=== PATIENT | female | born 1960 | race Caucasian/White ===

== ENCOUNTER 2020-09-14 15:00 | Outpatient (REF) | payer MEDICAID, SELFPAY ==
--- NOTE | 2020-09-14 | MM_ITS ---
EXAMINATION: MM SCREENING DIGITAL BREAST TOMOSYNTHESIS, BILATERAL CLINICAL INFORMATION: Screening. Asymptomatic. The lifetime risk of breast cancer based on the Tyrer-Cuzick Model is 11%. COMPARISON: Mammography: 06/22/2019, 06/18/2018, 06/05/2017 TECHNIQUE: Digital breast tomosynthesis is performed in both the craniocaudal and mediolateral oblique views along with computer-aided detection (CAD). Synthesized 2D images are generated from the tomosynthesis. FINDINGS: There are scattered areas of fibroglandular density (ACR BI-RADS breast composition Category b). There are no significant masses, abnormal calcifications, or other abnormalities. Parenchymal pattern is similar to prior exams. No significant changes. Again, there is biopsy clip marker mid 9:00 left breast. Intramammary nodes again seen upper outer right breast. MM/MM tomosynthesis screening BI IMPRESSION: No mammographic evidence of malignancy. ASSESSMENT: BI-RADS 2: Benign RECOMMENDATION: Routine annual mammography screening. This patient's information was entered into a reminder system with a target due date for their next mammogram.
== END 2020-09-14 15:01 | disposition home or self-care (01) ==
LOC: HO.MAMMO 15:00
PROVIDERS: PCP Nurse Practitioner Family; Visit Provider Nurse Practitioner Family
DX: Z12.31 Encounter for screening mammogram for malignant neoplasm of breast (principal)
CPT/HCPCS: 77063; 77067

== ENCOUNTER → 2021-08-15 12:46 | Outpatient (BNVA) | payer MEDICAID, SELFPAY | PROVIDERS: PCP Nurse Practitioner Primary Care; Referring Provider Nurse Practitioner Primary Care; Visit Provider Nurse Practitioner Family ==

== ENCOUNTER → 2021-09-26 14:23 | Outpatient (BNVA) | payer MEDICAID, SELFPAY | PROVIDERS: PCP Nurse Practitioner Primary Care; Referring Provider Nurse Practitioner Primary Care; Visit Provider Nurse Practitioner Family | DX: K21.9 Gastro-esophageal reflux disease without esophagitis (principal); Z86.19 Personal history of other infectious and parasitic diseases | CPT/HCPCS: 99212 ==

== ENCOUNTER 2021-10-13 09:42 | Outpatient (REF) | payer MEDICAID, SELFPAY ==
[2021-10-15 10:06] LABS: H Pylori Breath Test Positive (Negative)
== END 2021-10-13 09:43 | disposition home or self-care (01) ==
LOC: HO.LNP 09:42
PROVIDERS: PCP Nurse Practitioner Primary Care; Referring Provider Nurse Practitioner Primary Care; Visit Provider Nurse Practitioner Family
DX: Z11.0 Encounter for screening for intestinal infectious diseases (principal)
CPT/HCPCS: 83013; 99211

== ENCOUNTER → 2021-11-29 09:41 | Outpatient (BNVA) | payer MEDICAID, SELFPAY | PROVIDERS: PCP Nurse Practitioner Primary Care; Visit Provider Nurse Practitioner Family | DX: K21.9 Gastro-esophageal reflux disease without esophagitis (principal); E78.5 Hyperlipidemia, unspecified; R73.03 Prediabetes; E66.9 Obesity, unspecified; Z68.29 Body mass index [BMI] 29.0-29.9, adult; Z86.19 Personal history of other infectious and parasitic diseases | CPT/HCPCS: 99212 ==

== ENCOUNTER 2021-12-04 12:28 | Day surgery (SDC) | payer MEDICAID, SELFPAY ==
--- NOTE | 2021-12-04 12:56 | P.CONAN_ITS ---
[facility] Active Problems Active Problems: All Active Problems (Updated 09/26/21 @ 15:[address] [facility]) Gastroesophageal reflux disease (Acute) Past Medical History Medical History Asthma Dyslipidemia Gastroesophageal reflux disease Obesity Prediabetes Rhinitis Family History Family History (Updated 11/29/21 @ 09:52 by MINNA Cline) Mother Cancer Family history of problems with anesthesia: No Surgical History History of Problems with Anesthesia: No Social History Social History Patient Tobacco Use Status: Never used Tobacco Use of substances other than those prescribed or required for medical reasons: No Advance Directives: No Advance Directives Information Provided: Yes Meds Allergies Allergy/AdvReac Type Severity Reaction Status Date / Time No Known Allergies Allergy Verified 11/29/21 09:51 Home Medications Medication Instructions Recorded Confirmed Last Taken Type albuterol sulfate 90 mcg/actuation 2 puff PO QID 08/15/21 Unknown History aerosol inhaler (ProAir HFA) atorvastatin 20 mg tablet 20 mg PO QPM 08/15/21 Unknown History ibuprofen 600 mg tablet 600 mg PO TID PRN 08/15/21 Unknown History metformin 500 mg tablet 500 mg PO DAILY 08/15/21 Unknown History polyvinyl alcohol 1.4 % eye drops 1 drp OPHTHALMIC (EYE) TID-QID 08/15/21 Unknown History (Artificial Tears (polyvinyl alcohol)) Exam Exam Date and Time: December 04, 2021 1256 Airway Mallampati Class: II TM Dist: >3cm Neck ROM: Full Heart: rrr Lungs: cta Assessment and Plan Assessment Anesthesia Assessment: Anesthesia Plan Discussed and Chart Reviewed Final Anesthetic Review Family History of Problems with Anesthesia: No History of Problems with Anesthesia: No NPO: Yes ASA Class: II Final Preanesthetic Review: No Changes in Pt Med Stat, Meds/Allgs Chart Reviewed and Consent Obtained/Reviewed Patient Risk: Intermediate Procedure Risk: Intermediate Anesthetic Plan Anesthetic Plan: MAC: Disposition: Standard PACU
[2021-12-04 13:02] VITALS: BP 130/79; PULSE 89; RESP 16; TEMP 36.4; O2SAT 97; BMI 29.9
[2021-12-04] MEDS: Lactated Ringers 1,000 ML 50 ML IVCONT (13:12)
--- NOTE | 2021-12-04 14:04 | MHC.SHP ---
Pre-Procedural Eval Section A Date of Service: 12/04/21 The patient is an INPATIENT: No Changes since office visit: Yes Patient answered all questions; No Cold of Flu in the past 2 weeks, No New Medical Problems and No Changes in Medication The History & Physical has been completed within 30 days and I have reviewed it.: Yes Section B Chief Complaint: GERD Allergies: Allergies Allergy/AdvReac Type Severity Reaction Status Date / Time No Known Allergies Allergy Verified 11/29/21 09:51 Plan I have reviewed the history and physical and performed a pertinent physical examination on my patient. No changes have occurred unless specified.
--- NOTE | 2021-12-04 14:32 | P.BOP_ITS ---
Brief Operative Note Date of Service: 12/04/21 Pre-op diagnosis: GERD, recurrent H Pylori infectiuon Post-op diagnosis: other (GERD, gastritis) Procedure: FLEXIBLE TRANSORAL UPPER GASTROINTESTINAL ENDOSCOPY WITH BIOPSIES Consent: Indications for the procedure and potential complications of bleeding, perforation, reaction to medications and missed diagnosis were discussed with the patient and informed consent was obtained. Instrument: Olympus GIF H 190 mid size upper endoscope Monitoring: Vital signs and clinical assessment, continuous EKG monitoring, Pulse oximetry, Carbon Dioxide monitoring and blood pressure monitoring were done throughout the procedure. Procedure: The patient was placed in the left lateral decubitis position and pre-procedure medications were administered and a bite block was placed. The endoscope was inserted into the mouth and advanced under direct vision to the third part of duodenum. A careful inspection was made as the upper endoscope was withdrawn including a retroflexed examination of the proximal stomach; Findings and interventions are described below. Findings: Larynx: Normal Esophagus: GE junction at 35 cms. No esophagitis or May's. Stomach: Moderate diffuse gastric erythema with nodular appearing gastric mucosa. Biopsies were obtained for histology and Helicobacter culture and sensitivity. Grade 2 flap valve on retroflexed examination of the cardia. Duodenum: Normal bulb and descending duodenum Intervention: Biopsies as noted above Impression and Post Procedure Diagnosis: Endoscopy Findings: STOMACH: Moderate diffuse gastric erythema with nodular appearing gastric mucosa. Biopsies were obtained for histology and Helicobacter culture and sensitivity. Plan: Await pathology results Patient has an appointment on 12/29/21 in the GI Clinic with Georgie Chaudhari FNP-BC . Above findings were reviewed with the patient and GERD and Gastritis handouts were given in the discharge area Surgeon: Georgie Walsh MD Anesthesia: MAC (Dr Amos) Was an Entry Level Lab Technician used for this Procedure?: No Entry Level Lab Technician: Patsy Cardenas Estimated blood loss (mL): 0 Pathology: other (A. gastric antrum bxs, R/O H. pylori B. gastric body bxs) Condition: stable Disposition: PACU
--- NOTE | 2021-12-04 14:34 | P.OP_ITS ---
Operative Note Operative Note Date of Service: 12/04/21 Narrative: Pre-op diagnosis: GERD, recurrent H Pylori infectiuon Post-op diagnosis:?other (GERD, gastritis) Procedure: FLEXIBLE TRANSORAL UPPER GASTROINTESTINAL ENDOSCOPY WITH BIOPSIES Consent:?Indications for the procedure and potential complications of bleeding, perforation, reaction to medications and missed diagnosis were discussed with the patient and informed consent was obtained. Instrument:?Olympus GIF H 190 mid size upper endoscope Monitoring: Vital signs and clinical assessment, continuous EKG monitoring, Pulse oximetry, Carbon Dioxide monitoring and blood pressure monitoring were done throughout the procedure. Procedure:?The patient was placed in the left lateral decubitis position and pre-procedure medications were administered and a bite block was placed. The endoscope was inserted into the mouth and advanced under direct vision to the third part of duodenum. A careful inspection was made as the upper endoscope was withdrawn including a retroflexed examination of the proximal stomach; Findings and interventions are described below. Findings: Larynx:? Normal Esophagus: GE junction at 35 cms. No esophagitis or May's. Stomach: Moderate diffuse gastric erythema with nodular appearing gastric mucosa. Biopsies were obtained for histology and Helicobacter culture and sensitivity. Grade 2 flap valve on retroflexed examination of the cardia. Duodenum: Normal bulb and descending duodenum Intervention: Biopsies as noted above Impression and Post Procedure Diagnosis: Endoscopy Findings: STOMACH: Moderate diffuse gastric erythema with nodular appearing gastric mucosa. Biopsies were obtained for histology and Helicobacter culture and sensitivity. Plan: Await pathology results and if H Pylori is positive, patient can be re-treated according to culture and sensitivity results. Patient has an appointment on 12/29/21 in the GI Clinic with Georgie Chaudhari FNP- BC . Above findings were reviewed with the patient and GERD and Gastritis handouts were given in the discharge area Surgeon: Georgie Walsh MD Anesthesia:?MAC (Dr Amos) Was an Pattern Grader Supervisor used for this Procedure?:?No Pattern Grader Supervisor:?Patsy Cardenas Estimated blood loss (mL):?0 Pathology:?other (A. gastric antrum bxs, R/O H. pylori? B. gastric body bxs) Condition:?stable Disposition:?PACU
[2021-12-04 14:52] VITALS: BP 109/61; PULSE 90; RESP 16; TEMP 36.6; O2SAT 97
[2021-12-04 15:07] VITALS: BP 122/73; PULSE 86; RESP 18; TEMP 36.2; O2SAT 96
== END 2021-12-04 16:06 | disposition home or self-care (01) ==
PROVIDERS: PCP Nurse Practitioner Primary Care; Visit Provider Internal Medicine Gastroenterology
PROC: 0DJ08ZZ Inspection of Upper Intestinal Tract, Via Natural or Artificial Opening Endoscopic (ICD-10-PCS; CPT 43235; principal; 2021-12-04 13:50)
DX: K21.9 Gastro-esophageal reflux disease without esophagitis (principal); K29.50 Unspecified chronic gastritis without bleeding; Z86.19 Personal history of other infectious and parasitic diseases; J45.909 Unspecified asthma, uncomplicated; E78.5 Hyperlipidemia, unspecified; R73.03 Prediabetes; E66.9 Obesity, unspecified; Z68.29 Body mass index [BMI] 29.0-29.9, adult; Z79.84 Long term (current) use of oral hypoglycemic drugs; Z79.899 Other long term (current) drug therapy
CPT/HCPCS: 43239; 36415; 87081; 88305; 88342

== ENCOUNTER → 2021-12-29 10:17 | Outpatient (BNVA) | payer MEDICAID, SELFPAY | PROVIDERS: PCP Nurse Practitioner Primary Care; Referring Provider Nurse Practitioner Primary Care; Visit Provider Nurse Practitioner Family | DX: K21.9 Gastro-esophageal reflux disease without esophagitis (principal); Z86.19 Personal history of other infectious and parasitic diseases | CPT/HCPCS: 99212 ==

== ENCOUNTER → 2022-07-02 09:32 | Outpatient (BNVA) | payer MEDICAID, SELFPAY | PROVIDERS: PCP Nurse Practitioner Primary Care; Referring Provider Nurse Practitioner Primary Care; Visit Provider Nurse Practitioner Family | DX: K21.9 Gastro-esophageal reflux disease without esophagitis (principal); Z86.19 Personal history of other infectious and parasitic diseases | CPT/HCPCS: 99212 ==

== ENCOUNTER 2022-07-05 11:17 | Outpatient (REF) | payer MEDICAID, SELFPAY | END 2022-07-05 11:18 | disposition home or self-care (01) | LOC: HO.LNP 11:17 | PROVIDERS: Visit Provider Nurse Practitioner Family | DX: K21.9 Gastro-esophageal reflux disease without esophagitis (principal) | CPT/HCPCS: 87338 ==

== ENCOUNTER 2022-07-18 15:00 | Outpatient (REF) | payer MEDICAID, SELFPAY ==
--- NOTE | ~2022-07-18 | MM_ITS ---
EXAMINATION: MM SCREENING DIGITAL BREAST TOMOSYNTHESIS, BILATERAL CLINICAL INFORMATION: Screening. Asymptomatic. The lifetime risk of breast cancer based on the Tyrer-Cuzick Model is 7.6%. COMPARISON: Mammography: September 14, 2020 and studies dating back to May 24, 2014 TECHNIQUE: Digital breast tomosynthesis is performed in both the craniocaudal and mediolateral oblique views along with computer-aided detection (CAD). Synthesized 2D images are generated from the tomosynthesis. FINDINGS: The breasts are heterogeneously dense, which may obscure small masses (ACR BI-RADS breast composition Category c). There are no significant masses, abnormal calcifications, or other abnormalities. MM/MM tomosynthesis screening BI IMPRESSION: No significant changes from prior exam. ASSESSMENT: BI-RADS 1: Negative RECOMMENDATION: Routine annual mammography screening. This patient's information was entered into a reminder system with a target due date for their next mammogram.
== END 2022-07-18 15:01 | disposition home or self-care (01) ==
LOC: HO.MAMMO 15:00
PROVIDERS: PCP Nurse Practitioner Primary Care; Visit Provider Nurse Practitioner Primary Care
DX: Z12.31 Encounter for screening mammogram for malignant neoplasm of breast (principal)
CPT/HCPCS: 77063; 77067

== ENCOUNTER → 2022-10-08 09:28 | Outpatient (BNVA) | payer MEDICAID, SELFPAY | PROVIDERS: PCP Nurse Practitioner Primary Care; Referring Provider Nurse Practitioner Primary Care; Visit Provider Nurse Practitioner Family | DX: K21.9 Gastro-esophageal reflux disease without esophagitis (principal) | CPT/HCPCS: 99212 ==

== ENCOUNTER 2023-03-06 09:51 | Outpatient (REF) | payer MEDICAID, SELFPAY ==
--- NOTE | ~2023-03-06 | CT_ITS ---
EXAMINATION: CT HEAD WITHOUT CONTRAST CLINICAL INFORMATION: New daily headaches. COMPARISON: None. TECHNIQUE: Contiguous axial imaging was performed from the skullbase to vertex without intravenous administration of contrast. This CT examination was performed using dose optimization techniques as appropriate, variously including the following: *Automated exposure control *Adjustment of mA and/or kV according to patient size (this includes techniques or standardized protocols for targeted exams where dose is matched to indication/reason for exam; i.e. extremities or head) *Use of iterative reconstruction technique DLP: 718 mGy-cm. FINDINGS: There is no evidence of acute intracranial hemorrhage or territorial infarction. No abnormal mass effect or midline shift is seen. Souza to white matter differentiation is well preserved. No extra-axial fluid collections are identified. Incidental empty sella noted. The ventricles are normal in size. There is no abnormal attenuation within the brain parenchyma. The osseous structures and soft tissues are normal. The mastoid air cells and visualized portions of the paranasal sinuses are well aerated. CT/CT head/brain wo IV con IMPRESSION: No acute intracranial pathology.
== END 2023-03-06 09:52 | disposition home or self-care (01) ==
LOC: HO.CT 09:51
PROVIDERS: PCP Nurse Practitioner Primary Care; Visit Provider Internal Medicine
DX: G44.52 New daily persistent headache (NDPH) (principal)
CPT/HCPCS: 70450

== ENCOUNTER 2023-04-08 09:43 | Outpatient (AMB) | payer MEDICAID, SELFPAY ==
--- NOTE | 2023-04-08 10:44 | MHC.OFFVIS ---
Intake Vital Signs 04/08/23 10:46 Height 5 ft 2 in Weight 151 lb 3.794 oz BMI 27.7 BP 125/74 Blood Pressure Location Lt brachial Position Sitting Pulse 86 Intake Visit Reasons: 6 month follow up Intake Note: Cesia presents in office as a est.patient for a 6month f/u for GERD PT CC: pt reports having no concerns pt denies any other Issues Inspector Publications Required: Yes Inspector Publications Language: Chadian Accompanied by: Self / Same As Patient Allergies No Known Allergies Allergy (Verified 04/08/23 10:44) HPI 6 month follow up HPI Details LAST VISIT: Gastroesophageal reflux disease Continue with omeprazole half an hour before breakfast and half an hour before dinner. Continue avoiding dietary triggers and late night snacking. Staying upright for minimal 3 hours after meals discussed with patient. Patient can return in 6 months, sooner on as needed basis. Patient is agreeable to this plan and verbalizes understanding of instructions she was given the opportunity to ask questions and all questions answered. ? Thank you for allowing me to participate in her care Plan Medications Refilled omeprazole 40 mg PO BID 180 caps 1RF K21.9 Discontinued ondansetron Discontinued Reason: Patient no longer taking 4 mg PO Q8H PRN 20 tabs 0RF nausea and vomiting R11.0 TODAY'S VISIT: Patient is here today for follow-up. Patient reports that since the last time I have seen her she has been feeling better. Patient was taking omeprazole once a day instead of twice a day. Avoiding dietary triggers and states that she has not had any epigastric pain, dyspepsia, dysphagia or odynophagia. Admits to occasional heartburn depending on the food that she eats. Patient do not longer has epigastric discomfort night time. Patient stopped eating late at night. Patient denies any GI concerning symptoms today. States that she has been feeling well. Patient denies melena, hematochezia, unintentional weight loss or ribbon like stools. Patient is due to go for colorectal screening in January of 2024 [facility] Medical History Asthma Dyslipidemia Gastroesophageal reflux disease Obesity Prediabetes Rhinitis Surgical History Hx of esophagogastroduodenoscopy Family History Mother Cancer Social History Patient Tobacco Use Status: Never used Tobacco Review of Systems Const Denies weight gain and Denies weight loss ENT Reports no additional complaints, Denies dysphagia and Denies odynophagia Card Reports no additional complaints Resp Reports no additional complaints GI Denies abdominal pain, Denies belching, Denies melena, Denies bloating, Denies change in bowel habits, Denies dysphagia, Denies excessive flatus, Denies dyspepsia, Reports heartburn (Occasional), Denies diarrhea, Denies loose stools, Denies nausea, Denies odynophagia and Denies vomiting Reports no additional complaints Musc Reports no additional complaints Neuro Reports no additional complaints Psych Reports no additional complaints Endo Reports no additional complaints Physical Exam Vital Signs: Last Vital Signs Pulse 86 04/08/23 10:46 BP 125/74 04/08/23 10:46 BMI result Body Mass Index 27.7 Const General: healthy appearing, no acute distress and well developed Nutritional Appearance: well nourished Orientation/consciousness: patient oriented x3 HEENT Head: Yes normal to inspection, Yes normocephalic and Yes atraumatic Face and sinus: Yes normal facial exam Mouth: Normal oral and palatal mucosa present Throat: Yes posterior oropharynx normal, Yes tonsils normal and Yes uvula midline Eyes General: appearance normal, both eyes and all related structures Neck Neck: Yes normal visual inspection, Yes full ROM and Yes trachea midline Thyroid: Thyroid normal Resp Effort & Inspection: normal respiratory effort, able to speak in complete sentences, no tracheal deviation and symmetric chest movement Auscultation: clear to auscultation bilaterally Cardio Rate: regular rate Heart sounds: S1 normal heart sound present and S2 normal heart sound present GI Inspection: Yes normal to inspection and No distended Palpation (GI): Soft to palpation, not firm, nontender and No hepatosplenomegaly present Auscultation: normal bowel sounds General: Yes no CVA tenderness Back/Spine/Pelvis Back: no CVA tenderness Skin General skin exam: elasticity normal, turgor normal and dry skin Neuro General: patient oriented x3 Psych Appearance: grossly normal Mental Status: mental status grossly normal Speech and movement: Normal speech and movement present Affect: normal affect Assessment & Plan Assessment & Plan (1) Gastroesophageal reflux disease: Code(s): K21.9 - Gastro-esophageal reflux disease without esophagitis Qualifiers: Esophagitis presence: without esophagitis Qualified Code(s): K21.9 - Gastro-esophageal reflux disease without esophagitis Plan: Continue avoiding dietary triggers and late night snacking. Staying upright for minimum 3 hours after meals discussed patient. Continue omeprazole daily. I will see patient in 6 months we will discuss going for colonoscopy. Do in January of 2024. Patient is agreeable to this plan and verbalizes understanding of instructions. She was given the opportunity to ask questions and all questions answered. Thank you for allowing me to participate in her care Medications: Changed From omeprazole 40 mg PO BID 180 caps 1RF K21.9 - Gastro-esophageal reflux disease without esophagitis To omeprazole 40 mg PO DAILY 90 caps 1RF K21.9 - Gastro-esophageal reflux disease without esophagitis Coding Level of Care Code Est Pt Level 3 (51623) Diagnoses Gastroesophageal reflux disease K21.9 Esophagitis presence: without esophagitis Time Spent (min) 30 Comment 20 minutes spent with patient and additional 10 minutes spent reviewing her records
[2023-04-08 10:46] VITALS: BP 125/74; PULSE 86; BMI 27.7
== END 2023-04-08 11:53 | disposition home or self-care (01) ==
PROVIDERS: PCP Nurse Practitioner Primary Care; Visit Provider Nurse Practitioner Family
DX: K21.9 Gastro-esophageal reflux disease without esophagitis (principal)
CPT/HCPCS: 99213

== ENCOUNTER → 2023-04-08 10:11 | Outpatient (BNVA) | payer MEDICAID, SELFPAY | PROVIDERS: PCP Nurse Practitioner Primary Care; Visit Provider Nurse Practitioner Family | DX: K21.9 Gastro-esophageal reflux disease without esophagitis (principal) | CPT/HCPCS: 99213 ==

== ENCOUNTER 2023-04-22 08:06 | Outpatient (REF) | payer MEDICAID, SELFPAY ==
[2023-04-22 11:15] LABS: MANUAL DIFF FLAG NO
[2023-04-22 11:37] LABS: Basophils Absolute Auto 0.1 X10*3/uL (0.0-0.2); Basophils Percent Auto 0.8 % (0-2); Eosinophils Absolute Auto 0.3 X10*3/uL (0.0-0.4); Eosinophils Percent Auto 3.6 % (0-4); Hematocrit 42.3 % (37.0-47.0); Hemoglobin 13.6 g/dl (12.0-16.0); Imm Gran Abs Auto 0.04 X10*3/uL (0.00-0.03); Imm Gran Pct Auto 0.5 % (0.0-0.4); Lymphocytes Absolute Auto 2.4 X10*3/uL (1.2-4.9); Lymphocytes Percent Auto 28.8 % (20-40); Mean Corpuscular HGB Conc 32.2 g/dl (31.0-35.0); Mean Corpuscular Hemoglobin 28.6 pg (27.0-33.0); Mean Corpuscular Volume 88.9 fL (80.0-98.0); Mean Platelet Volume 10.9 fL (9.4-12.3); Monocytes Absolute Auto 0.4 X10*3/uL (0.1-1.2); Monocytes Percent Auto 4.5 % (2-11); Neutrophils Absolute Auto 5.2 x10*3/uL (2.0-8.3); Neutrophils Percent Auto 61.8 % (45-73); Platelet Count 336 X10*3/uL (160-400); Red Blood Count 4.76 X10*6/uL (4.20-5.50); Red Cell Distribution Width 13.6 % (11.0-16.0); White Blood Count 8.4 X10*3/uL (4.8-10.8)
[2023-04-22 11:52] LABS: Estimated Average Glucose 160 mg/dL; Hemoglobin A1c % 7.2 %
[2023-04-22 12:08] LABS: Syphilis Screen Nonreactive (Nonreactive)
[2023-04-22 12:10] LABS: HBS Num1 0.03 mIU/mL (0-7.99); HBsAGNum1 0.31 S/CO (0.00-0.99); HIV AB/AG Nonreactive (Nonreactive); HIV Num 1 0.07 S/CO (0.00-0.99); Hepatitis B Core Antibody Nonreactive (Nonreactive); Hepatitis B Surface Antigen Negative (Negative); ~Hepatitis B Surface Antibody NONREACTIVE (Nonreactive)
[2023-04-22 12:12] LABS: Alanine Aminotransferase 26 U/L (0-31); Albumin Level 4.1 g/dL (3.5-5.0); Alkaline Phosphatase 126 U/L (39-117); Anion Gap 10 (12-20); Aspartate Amino Transferase 29 U/L (5-31); Bilirubin Total 0.4 mg/dL (0.0-1.0); Blood Urea Nitrogen 14 mg/dL (9-16); Calcium 9.8 mg/dL (8.4-10.2); Carbon Dioxide 27 mmol/L (22-29); Chloride 107 mmol/L (96-108); Cholesterol 256 mg/dL; Estimated Glomerular Filt Rate > 60; Glucose Random 139 mg/dL (60-115); HDL Cholesterol 51 mg/dL; LDL Cholesterol Calculated 152 mg/dl; Potassium 3.9 mmol/L (3.3-5.1); Sodium 140 mmol/L (135-145); Total Protein 7.8 g/dL (6.5-8.0); Triglycerides 266 mg/dL
[2023-04-22 12:17] LABS: ~HepC Num1 0.06 S/CO (0.00-0.79); ~Hepatitis C Antibody Nonreactive (Nonreactive)
[2023-04-22 12:18] LABS: Cortisol Random 17.2 ug/dL; TSH reflex Free T4 0.96 uIU/mL (0.32-4.0)
[2023-04-22 12:34] LABS: Folate 13.3 ng/mL (> or = 4.0); Vitamin B12 360 pg/mL (200-900)
[2023-04-23 20:22] LABS: Prolactin 9.4 ng/mL
[2023-04-27 01:03] LABS: VITAMIN D (1,25 OH) D3 58 pg/mL; Vit D (1,25-Dihydroxy) Total 58 pg/mL (18-72); Vitamin D (1,25 OH) D2 <8 pg/mL
[2023-04-28 13:13] LABS: IGF-1 (Somatomedin C) 59 ng/mL (41-279); IGF-1 Z Score (Female) -1.5 SD (-2.0 - +2.0)
== END 2023-04-22 08:07 | disposition home or self-care (01) ==
LOC: HO.HHCL 08:06
PROVIDERS: Visit Provider Student in an Organized Health Care Education/Training Program
DX: Z00.00 Encounter for general adult medical examination without abnormal findings (principal); Z11.4 Encounter for screening for human immunodeficiency virus [HIV]; E23.6 Other disorders of pituitary gland
CPT/HCPCS: 36415; 80053; 80061; 82533; 82607; 82652; 82746; 83036; 84146; 84305; 84443; 85025; 86704; 86706; 86780; 86803; 87340; 87389

== ENCOUNTER 2023-04-23 11:35 | Outpatient (REF) | payer MEDICAID, SELFPAY ==
[2023-04-23 14:50] LABS: Creatinine Urine 7.81 mg/dL; Microalbumin Urine < 5.0 mg/L
[2023-04-23 15:26] LABS: CT PCR NOT DETECTED (Not Detect.); NG PCR NOT DETECTED (Not Detect.)
== END 2023-04-23 11:36 | disposition home or self-care (01) ==
LOC: HO.CHCLDS 11:35
PROVIDERS: Visit Provider Student in an Organized Health Care Education/Training Program
DX: Z00.00 Encounter for general adult medical examination without abnormal findings (principal); Z11.3 Encounter for screening for infections with a predominantly sexual mode of transmission
CPT/HCPCS: 0353U; 82043

== ENCOUNTER 2023-04-23 14:13 | Outpatient (REF) | payer MEDICAID, SELFPAY ==
--- NOTE | ~2023-04-23 | US_ITS ---
EXAMINATION: US PELVIS CLINICAL INFORMATION: History of uterine fibroids. COMPARISON: Pelvic ultrasound 07/06/2015. TECHNIQUE: Ultrasound of the pelvis is performed using both transabdominal and transvaginal transducers along with Doppler. Transvaginal imaging is performed due to inadequate visualization transabdominally. FINDINGS: The uterus and right ovary are not visualized. The left ovary measures 2 x 1.7 x 1 cm, 2 mL. There is no discrete dominant left ovarian mass or adnexal mass. No free fluid. US/US pelvic and transvaginal IMPRESSION: 1. The uterus and right adnexa are not seen, correlate with surgical history. Alternatively, further imaging with an MRI of the pelvis could be obtained as clinically indicated. 2. No discrete left ovarian or adnexal mass.
== END 2023-04-23 14:14 | disposition home or self-care (01) ==
LOC: HO.US 14:13
PROVIDERS: Visit Provider Student in an Organized Health Care Education/Training Program
DX: R93.89 Abnormal findings on diagnostic imaging of other specified body structures (principal)
CPT/HCPCS: 0353U; 76830; 76856; 82043

== ENCOUNTER 2023-05-16 14:18 | Outpatient (REF) | payer MEDICAID, SELFPAY ==
[2023-05-20 20:34] LABS: HPV mRNA E6/E7 rflx Not Detected (Not Detected)
== END 2023-05-16 14:19 | disposition home or self-care (01) ==
LOC: HO.HHCLNP 14:18
PROVIDERS: Visit Provider Advanced Practice Midwife
DX: Z12.4 Encounter for screening for malignant neoplasm of cervix (principal); Z11.51 Encounter for screening for human papillomavirus (HPV)
CPT/HCPCS: 87624; 88142

== ENCOUNTER 2023-07-24 15:05 | Outpatient (REF) | payer MEDICAID, SELFPAY ==
--- NOTE | ~2023-07-24 | MM_ITS ---
EXAMINATION: MM SCREENING DIGITAL BREAST TOMOSYNTHESIS, BILATERAL CLINICAL INFORMATION: Screening. Asymptomatic. COMPARISON: Mammography: This study is compared with prior exams dating back to 2018. TECHNIQUE: Digital breast tomosynthesis is performed in both the craniocaudal and mediolateral oblique views along with computer-aided detection (CAD). Synthesized 2D images are generated from the tomosynthesis. FINDINGS: There are scattered areas of fibroglandular density (ACR BI-RADS breast composition Category b). There are no significant masses, abnormal calcifications, or other abnormalities. There is a tissue marker in the left breast from prior benign percutaneous biopsy. MM/MM tomosynthesis screening BI IMPRESSION: No mammographic evidence of malignancy. ASSESSMENT: BI-RADS BI-RADS 2 - Benign Findings RECOMMENDATION: Routine annual mammography screening. 1 year F/U This examination should not preclude the clinical evaluation of a suspicious palpable abnormality. This patient's information was entered into a reminder system with a target due date for their next mammogram.
== END 2023-07-24 15:06 | disposition home or self-care (01) ==
LOC: HO.MAMMO 15:05
PROVIDERS: PCP Student in an Organized Health Care Education/Training Program; Referring Provider Student in an Organized Health Care Education/Training Program; Visit Provider Nurse Practitioner Primary Care
DX: Z12.31 Encounter for screening mammogram for malignant neoplasm of breast (principal)
CPT/HCPCS: 77063; 77067

== ENCOUNTER → 2023-07-24 15:30 | Outpatient (BNV) | payer MEDICAID, SELFPAY | PROVIDERS: PCP Student in an Organized Health Care Education/Training Program; Referring Provider Student in an Organized Health Care Education/Training Program; Visit Provider Radiology Diagnostic Radiology | DX: Z12.31 Encounter for screening mammogram for malignant neoplasm of breast (principal) | CPT/HCPCS: 77063; 77067 ==

== ENCOUNTER 2023-09-10 08:55 | Outpatient (REF) | payer MEDICAID, SELFPAY ==
[2023-09-10 11:35] LABS: Estimated Average Glucose 151 mg/dL; Hemoglobin A1c % 6.9 % (<6.0)
[2023-09-10 11:58] LABS: Alanine Aminotransferase 20 U/L (0-31); Albumin Level 4.4 g/dL (3.5-5.0); Alkaline Phosphatase 109 U/L (39-117); Anion Gap 11 (12-20); Aspartate Amino Transferase 19 U/L (5-31); Bilirubin Total 0.3 mg/dL (0.0-1.0); Blood Urea Nitrogen 15 mg/dL (9-16); Calcium 9.5 mg/dL (8.4-10.2); Carbon Dioxide 26 mmol/L (22-29); Chloride 108 mmol/L (96-108); Cholesterol 133 mg/dL (<200); Estimated Glomerular Filt Rate > 60; Glucose Random 137 mg/dL (60-115); HDL Cholesterol 49 mg/dL (>40); LDL Cholesterol Calculated 56 mg/dL (<100); Potassium 4.1 mmol/L (3.3-5.1); Sodium 141 mmol/L (135-145); Total Protein 7.8 g/dL (6.5-8.0); Triglycerides 142 mg/dL (<150)
[2023-09-10 12:15] LABS: Folate 11.3 ng/mL (> or = 4.0); Vitamin B12 345 pg/mL (200-900)
== END 2023-09-10 08:56 | disposition home or self-care (01) ==
LOC: HO.HHCL 08:55
PROVIDERS: Visit Provider Student in an Organized Health Care Education/Training Program
DX: E11.69 Type 2 diabetes mellitus with other specified complication (principal); E78.5 Hyperlipidemia, unspecified
CPT/HCPCS: 36415; 80053; 80061; 82607; 82746; 83036

== ENCOUNTER 2023-10-15 09:28 | Outpatient (AMB) | payer MEDICAID, SELFPAY ==
--- NOTE | 2023-10-15 09:31 | A.OFFVIS_ITS ---
Intake Vital Signs 10/15/23 09:34 Height 5 ft 2 in Weight 147 lb 11.355 oz BMI 27.0 BP 118/69 Blood Pressure Location Lt brachial Position Sitting Pulse 80 Intake Visit Reasons: 6 month follow up Intake Note: Cesia presents in the office as a 6 month follow up. CC: She states that she is not having any concerns at this time. Tobacco Feeder Catcher Required: Yes Tobacco Feeder Catcher Name: Corey [id number] Allergies No Known Allergies Allergy (Verified 10/15/23 09:34) HPI 6 month follow up HPI Details LAST VISIT: Gastroesophageal reflux disease Continue avoiding dietary triggers and late night snacking. Staying upright for minimum 3 hours after meals discussed patient. Continue omeprazole daily. I will see patient in 6 months we will discuss going for colonoscopy. Do in January of 2024. Patient is agreeable to this plan and verbalizes understanding of instructions. She was given the opportunity to ask questions and all questions answered. ? Thank you for allowing me to participate in her care Plan Medications Changed From omeprazole 40 mg PO BID 180 caps 1RF K21.9 - Gastro-esophageal reflux disease without esophagitis To omeprazole 40 mg PO DAILY 90 caps 1RF K21.9 - Gastro-esophageal reflux disease without esophagitis TODAY'S VISIT Patient is here today for follow-up. Patient reports that she has been doing better now. Patient states that she is only using a omeprazole on as needed basis. Her symptoms of acid reflux have suppressed. Patient is avoiding d ietary triggers as recommended. Patient reports that she is moving her bowels well without any issues. Denies any melena, hematochezia, unintentional weight loss or ribbon like stools. [facility] Medical History Gastroesophageal reflux disease Obesity Rhinitis Asthma Dyslipidemia Prediabetes Surgical History (Updated 10/15/23 @ 09:35 by MINNA Garcia) Hx of colonoscopy Hx of esophagogastroduodenoscopy Family History Mother Cancer Social History Patient Tobacco Use Status: Never used Tobacco Review of Systems Const Denies weight gain and Denies weight loss ENT Reports no additional complaints, Denies dysphagia and Denies odynophagia Card Reports no additional complaints Resp Reports no additional complaints GI Denies abdominal pain, Denies belching, Denies melena, Denies bloating, Denies change in bowel habits, Denies dysphagia, Denies excessive flatus, Denies dyspepsia, Denies heartburn, Denies diarrhea, Denies loose stools, Denies nausea, Denies odynophagia and Denies vomiting Musc Reports no additional complaints Neuro Reports no additional complaints Psych Reports no additional complaints Endo Reports no additional complaints Physical Exam Vital Signs: Last Vital Signs Pulse 80 10/15/23 09:34 BP 118/69 10/15/23 09:34 BMI result Body Mass Index 27.0 Const General: healthy appearing, no acute distress and well developed Nutritional Appearance: well nourished Orientation/consciousness: patient oriented x3 Resp Effort & Inspection: normal respiratory effort, able to speak in complete sentences, no tracheal deviation and symmetric chest movement Auscultation: clear to auscultation bilaterally Cardio Rate: regular rate GI Inspection: Yes normal to inspection and No distended Palpation (GI): Soft to palpation, not firm, nontender and No hepatosplenomegaly present Auscultation: normal bowel sounds General: Yes no CVA tenderness Back/Spine/Pelvis Back: no CVA tenderness Skin General skin exam: elasticity normal, turgor normal and dry skin Neuro General: patient oriented x3 Psych Appearance: grossly normal Mental Status: mental status grossly normal Assessment & Plan Assessment & Plan (1) Gastroesophageal reflux disease: Code(s): K21.9 - Gastro-esophageal reflux disease without esophagitis Qualifiers: Esophagitis presence: without esophagitis Qualified Code(s): K21.9 - Gastro-esophageal reflux disease without esophagitis (2) History of Helicobacter pylori infection: Code(s): Z86.19 - Personal history of other infectious and parasitic diseases (3) Postprandial abdominal bloating: Code(s): R14.0 - Abdominal distension (gaseous) Plan Continue avoiding dietary triggers. Avoid late night snacking. Staying upright for minimum 3 hours after meals discussed with patient. Patient will return in 5 weeks and we will discuss going for colonoscopy. Patient will call us sooner if she will have any GI concerning symptoms. Patient is agreeable to this plan and verbalizes understanding of instructions. She was given the opportunity to ask questions and all questions answered. Thank you for allowing me participate in her care Coding Level of Care Code Est Pt Level 3 (90389) Diagnoses Gastroesophageal reflux disease without esophagitis K21.9 Esophagitis presence: without esophagitis History of Helicobacter pylori infection Z86.19 Postprandial abdominal bloating R14.0 Time Spent (min) 25 Comment 15 minutes spent with patient and additional 10 minutes spent reviewing her records
[2023-10-15 09:34] VITALS: BP 118/69; PULSE 80; BMI 27.0
== END 2023-10-15 09:54 | disposition home or self-care (01) ==
PROVIDERS: PCP Nurse Practitioner Primary Care; Visit Provider Nurse Practitioner Family
DX: K21.9 Gastro-esophageal reflux disease without esophagitis (principal); Z86.19 Personal history of other infectious and parasitic diseases; R14.0 Abdominal distension (gaseous)
CPT/HCPCS: 99213

== ENCOUNTER → 2023-10-15 09:28 | Outpatient (BNVA) | payer MEDICAID, SELFPAY | PROVIDERS: PCP Nurse Practitioner Primary Care; Visit Provider Nurse Practitioner Family | DX: K21.9 Gastro-esophageal reflux disease without esophagitis (principal); R14.0 Abdominal distension (gaseous); Z86.19 Personal history of other infectious and parasitic diseases | CPT/HCPCS: 99212 ==

== ENCOUNTER 2023-11-19 13:34 | Outpatient (AMB) | payer MEDICAID, SELFPAY ==
[2023-11-19 13:37] VITALS: BP 125/68; PULSE 74; BMI 27.1
--- NOTE | 2023-11-19 13:37 | MHC.OFFVIS ---
Intake Vital Signs 11/19/23 13:37 Height 5 ft 2 in Weight 148 lb BMI 27.1 BP 125/68 Blood Pressure Location Rt brachial Position Sitting Pulse 74 Pulse Source Monitor Intake Visit Reasons: 5 Weeks follow up, discuss colo Intake Note: Patient states shes been having stomach pain on and off since her last office visit. No other GI concerns at this moment. 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 Avoid late night snacking. Staying upright for minimum 3 hours after meals discussed with patient. Patient will return in 5 weeks and we will discuss going for colonoscopy. Patient will call us sooner if she will have any GI concerning symptoms. Patient is agreeable to this plan and verbalizes understanding of instructions. She was given the opportunity to ask questions and all questions answered. TODAY'S VISIT Patient is here today for follow-up and to discuss going for colonoscopy and possible upper endoscopy. Patient reports that since the last time I have seen her she has been feeling better, however in the past couple weeks she started experiencing again epigastric discomfort postprandially, postprandial epigastric burning. Patient states that she stopped taking omeprazole as she was feeling better. Patient reports occasional dyspepsia without dysphagia or odynophagia. Patient denies any issues with anesthesia in the past. No history of sleep apnea. Not on any anticoagulation medication. Patient denies any cardiac or respiratory symptoms. [facility] Medical History Gastroesophageal reflux disease Obesity Rhinitis Asthma Dyslipidemia Prediabetes Surgical History (Updated 10/15/23 @ 09:35 by MINNA Garcia) Hx of colonoscopy Hx of esophagogastroduodenoscopy Family History Mother Cancer Social History Patient Tobacco Use Status: Never used Tobacco Review of Systems Const Denies weight gain and Denies weight loss ENT Reports no additional complaints, Denies dysphagia and Denies odynophagia Card Reports no additional complaints Resp Reports no additional complaints GI Denies abdominal pain, Denies belching, Denies melena, Denies bloating, Denies change in bowel habits, Denies dysphagia, Denies excessive flatus, Denies dyspepsia, Reports heartburn, Denies diarrhea, Denies loose stools, Denies nausea, Denies odynophagia and Denies vomiting Reports no additional complaints Musc Reports no additional complaints Neuro Reports no additional complaints Psych Reports no additional complaints Endo Reports no additional complaints Physical Exam Vital Signs: Last Vital Signs Pulse 74 11/19/23 13:37 BP 125/68 11/19/23 13:37 BMI result Body Mass Index 27.1 Const General: healthy appearing, no acute distress and well developed Nutritional Appearance: well nourished Orientation/consciousness: patient oriented x3 Resp Effort & Inspection: normal respiratory effort, able to speak in complete sentences, no tracheal deviation and symmetric chest movement Auscultation: clear to auscultation bilaterally Cardio Rate: regular rate GI Inspection: Yes normal to inspection and No distended Palpation (GI): Soft to palpation, not firm, nontender and No hepatosplenomegaly present Auscultation: normal bowel sounds General: Yes no CVA tenderness Back/Spine/Pelvis Back: no CVA tenderness Skin General skin exam: elasticity normal, turgor normal and dry skin Neuro General: patient oriented x3 Psych Appearance: grossly normal Mental Status: mental status grossly normal Assessment & Plan Assessment & Plan (1) Gastroesophageal reflux disease: Code(s): K21.9 - Gastro-esophageal reflux disease without esophagitis Qualifiers: Esophagitis presence: without esophagitis Qualified Code(s): K21.9 - Gastro-esophageal reflux disease without esophagitis (2) History of Helicobacter pylori infection: Code(s): Z86.19 - Personal history of other infectious and parasitic diseases (3) Postprandial abdominal bloating: Code(s): R14.0 - Abdominal distension (gaseous) Plan History of H pylori in the past, found on upper endoscopy in April of 2022 and treated. Patient had an no H pylori in June. She has been on omeprazole, however recently stopped she can restart taking the every morning. Will send her for upper endoscopy to rule out H pylori, gastritis, duodenitis, esophagitis, May's. Patient will be sent for colonoscopy as well. Patient will be due in January of this year. Patient denies any melena, hematochezia, unintentional weight loss or ribbon like stools. Reports to be moving her bowels without any issues. What to expect before during and after procedure discussed with patient. The importance of clear liquid diet as well as good bowel prep discussed with patient. Patient denies any cardiac or respiratory symptoms. I will see patient after the procedure, sooner on as needed basis. Patient is agreeable to this plan and verbalizes understanding of instructions. She was given the opportunity to ask questions and all questions answered. Thank you for allowing me to participate in her care Medications: New polyethylene glycol 3350 (Miralax) As directed by gastroenterology department at [facility] 238 grams PO ONCE 238 grams 0RF Z12.11 - Encounter for screening for malignant neoplasm of colon bisacodyl (Dulcolax (bisacodyl)) 10 mg (2 x 5 mg) PO BEDTIME 180 tabs 4RF Refilled omeprazole 40 mg PO DAILY 90 caps 1RF K21.9 - Gastro-esophageal reflux disease without esophagitis Coding Level of Care Code Est Pt Level 4 (97930) Diagnoses Gastroesophageal reflux disease without esophagitis K21.9 Esophagitis presence: without esophagitis History of Helicobacter pylori infection Z86.19 Postprandial abdominal bloating R14.0 Time Spent (min) 35 Comment 25 minutes spent with patient and additional 10 minutes spent reviewing her records
== END 2023-11-19 14:23 | disposition home or self-care (01) ==
PROVIDERS: PCP Nurse Practitioner Primary Care; Visit Provider Nurse Practitioner Family
DX: K21.9 Gastro-esophageal reflux disease without esophagitis (principal); Z86.19 Personal history of other infectious and parasitic diseases; R14.0 Abdominal distension (gaseous)
CPT/HCPCS: 99214

== ENCOUNTER → 2023-11-19 13:34 | Outpatient (BNVA) | payer MEDICAID, SELFPAY | PROVIDERS: PCP Nurse Practitioner Primary Care; Visit Provider Nurse Practitioner Family | DX: K21.9 Gastro-esophageal reflux disease without esophagitis (principal); R14.0 Abdominal distension (gaseous); Z86.19 Personal history of other infectious and parasitic diseases | CPT/HCPCS: 99212 ==

== ENCOUNTER 2024-04-13 09:46 | Day surgery (SDC) | payer MEDICAID, SELFPAY ==
[2024-04-13 10:21] VITALS: BMI 27.1
[2024-04-13 10:22] VITALS: BP 141/72; PULSE 85; RESP 18; TEMP 36.1; O2SAT 97
[2024-04-13 10:41] LABS: Glucose, Whole Blood 145 mg/dL (60-115)
[2024-04-13] MEDS: Lactated Ringers 1,000 ML 50 ML IVCONT (10:50)
--- NOTE | 2024-04-13 11:43 | HO.ANESPROP2 ---
[facility] Active Problems Active Problems: All Active Problems Gastroesophageal reflux disease (Acute) Past Medical History Medical History Gastroesophageal reflux disease Obesity Rhinitis Asthma Dyslipidemia Prediabetes Functional capacity: independent ambulation Patient : No Family History Family History Mother Cancer Family history of problems with anesthesia: No Surgical History Surgical History Hx of colonoscopy Hx of esophagogastroduodenoscopy History of Problems with Anesthesia: No Social History Social History Patient Tobacco Use Status: Never used Tobacco Are you DNR?: No Advance Directives: No Advance Directives Information Provided: Yes Nutrition Risks: No Nutritional Risk Meds Allergies Allergy/AdvReac Type Severity Reaction Status Date / Time No Known Allergies Allergy Verified 11/19/23 13:41 Active Medications: Current Medications Lactated Ringer's (Lr) 1,000 mls @ 50 mls/hr IVCONT .Q20H JESUS Last Admin: 04/13/24 10:50 Dose: 50 mls/hr Home Medications ?Medication ?Instructions ?Recorded ?Confirmed ?Last Taken ?Type albuterol sulfate 90 mcg/actuation 2 puff PO QID 08/15/21 Unknown History aerosol inhaler (ProAir HFA) atorvastatin 10 mg tablet 10 mg PO DAILY 10/15/23 Unknown History metformin 500 mg tablet,extended 500 mg PO BID 10/15/23 Unknown History release 24 hr Exam Height,Weight and Vital Signs: Height 5 ft 2 in Weight 67.132 kg Last Vital Signs Temp 96.9 F 04/13/24 10:22 Pulse 85 04/13/24 10:22 Resp 18 04/13/24 10:22 BP 141/72 H 04/13/24 10:22 Pulse Ox 97 04/13/24 10:22 O2 Del Method Room Air 04/13/24 10:22 Pertinent Lab Results Pertinent Lab Results: Laboratory Tests 04/13/24 10:27 POC Glucose 145 H Airway Mallampati Class: II TM Dist: >3cm Neck ROM: Full Heart: RRR Lungs: CTA Assessment and Plan Assessment Anesthesia Assessment: Anesthesia Plan Discussed Final Anesthetic Review Family History of Problems with Anesthesia: No History of Problems with Anesthesia: No NPO: Yes ASA Class: II Final Preanesthetic Review: Meds/Allgs Chart Reviewed, Consent Obtained/Reviewed and Anes Risks/Benef Reviewed Patient Risk: Low Procedure Risk: Low Anesthetic Plan Anesthetic Plan: MAC: Disposition: Standard PACU
--- NOTE | 2024-04-13 13:06 | MHC.SHP ---
Pre-Procedural Eval Section A - 24 Hr Update-Section A only Date of Service: 04/13/24 The patient is an INPATIENT: No The patient has been examined within 24 hours of the surgical procedure. The History & Physical has been completed within 30 days and I have reviewed it.: No Section B - Complete if H&P > 30 days Chief Complaint: Screening, GERD Relevant Family History (Specify if Yes): No Relevant Social History: None Present Medications: see Short Stay Collaborative assessment Medical History: Significant History (Gastroesophageal reflux disease Obesity Rhinitis Asthma Dyslipidemia Prediabetes) History of Previous Operations: Relevant previous surgery/procedure and date(s) (History of EGD and colonoscopy) Allergies: Allergies Allergy/AdvReac Type Severity Reaction Status Date / Time No Known Allergies Allergy Verified 11/19/23 13:41 Review of Systems Sugical H&P ROS: Negative: Constitution, Cardiovascular, Respiratory and Gastrointestinal Exam Surgical H&P Exam: Normal: Heart, Normal: Lungs, Normal: Extremities and Normal: Abdomen Plan Diagnosis/Plan: Unchanged I have reviewed the history and physical and performed a pertinent physical examination on my patient. No changes have occurred unless specified. Time Spent With Patient Time: Total time managing care of this patient today ____ minutes.
--- NOTE | 2024-04-13 13:26 | HO.OPN-COLON ---
Colonoscopy Operative Note Operative Note Date of Service: 04/13/24 Narrative: FLEXIBLE TRANSORAL UPPER GASTROINTESTINAL ENDOSCOPY WITH BIOPSIES AND COLONOSCOPY TILL CECUM WITH BIOPSIES AND SNARE POLYPECTOMY Pre-op diagnosis: Colon cancer screening, GERD Post-op diagnosis: GERD, Gastritis, Colon Polyps, Diverticulosis, hemorrhoids Endoscopist:? Georgie Walsh MD Anesthesia:?MAC UPPER ENDOSCOPY Consent: Indications for the procedure and potential complications of bleeding, perforation, reaction to medications and missed diagnosis were discussed with the patient and informed consent was obtained. Instrument: Olympus GIF H 190 mid size upper endoscope Monitoring: Vital signs and clinical assessment, continuous EKG monitoring, Pulse oximetry, Carbon Dioxide monitoring and blood pressure monitoring were done throughout the procedure. Procedure: The patient was placed in the left lateral decubitis position and pre-procedure medications were administered and a bite block was placed. The endoscope was inserted into the mouth and advanced under direct vision to the third part of duodenum. A careful inspection was made as the upper endoscope was withdrawn including a retroflexed examination of the proximal stomach; Findings and interventions are described below. Findings: Larynx: Normal Esophagus: GE junction at 35 cms. No esophagitis or May's. Stomach: Moderate diffuse gastric erythema with nodular appearing gastric mucosa. Biopsies were obtained for histology and Helicobacter culture and sensitivity. Grade 2 flap valve on retroflexed examination of the cardia. Duodenum: Normal bulb and descending duodenum Intervention: Biopsies as noted above COLONOSCOPY PROCEDURE NOTE Instrument: Olympus PCF H 190 L variable stiffness pediatric colonoscope Monitoring: Vital signs and clinical assessment, intermittent blood pressure monitoring, continuous EKG monitoring, Pulse oximetry and Carbon Dioxide monitoring were done throughout the procedure. Please see anesthesia flowsheet. Colon withdrawl time was 15 minutes. Procedure: The patient was placed in the left lateral decubitis position and pre-procedure medications were administered. After a digital rectal examination of the ano-rectum, the video colonoscope was inserted into the rectum and advanced through the colon to the cecum. The colonoscope was slowly withdrawn in a retrograde panoramic fashion and the colon mucosa was carefully examined including a retroflexed view of the rectum. Findings and interventions are described below. Procedure Difficulty: without difficulty Findings: Terminal Ileum: Not evaluated Cecum: Normal Ascending Colon: A 5-6 mm sessile polyp - removed with a cold snare. A 2-3 mm sessile polyp - removed with a cold biopsy Transverse Colon: Moderate diverticulosis Descending Colon: Moderate diverticulosis Sigmoid Colon: Severe diverticulosis with luminal narrowing Rectum: Normal Ano-rectum: Moderate internal hemorrhoids Colon preparation: Good after copious irrigation. [place] Bowel Preparation Scale Right colon; 2 Transverse colon: 2 Left colon; 2 (0 = Unprepared colon segment with mucosa not seen due to solid stool that cannot be cleared. 1 = Portion of mucosa of the colon segment seen, but other areas of the colon segment not well seen due to staining, residual stool and/or opaque liquid. 2 = Minor amount of residual staining, small fragments of stool and/or opaque liquid, but mucosa of colon segment seen well. 3 = Entire mucosa of colon segment seen well with no residual staining, small fragments of stool or opaque liquid) Impression and Post Procedure Diagnosis: Endoscopy Findings: STOMACH: Moderate diffuse gastric erythema with nodular appearing gastric mucosa. Biopsies were obtained for histology and Helicobacter culture and sensitivity. Colonoscopy Findings: Two small polyps were removed Moderate to severe diverticulosis seen in the left and transverse colon Moderate hemorrhoids on retroflexed exam. Plan: Pt has a FU appointment on 05/01/24 with Elizabeth Chaudhari NP Repeat Colonoscopy in 5 years if polyps are adenomatous and 10 year if polyps are hyperplastic. Await pathology results and if H Pylori is positive, patient can be re-treated according to culture and sensitivity results. Above findings were reviewed with the patient and relevant handouts were given and the discharge area.
[2024-04-13 13:57] VITALS: BP 103/63; PULSE 87; RESP 18; TEMP 36.6; O2SAT 96
[2024-04-13 14:12] VITALS: BP 132/76; PULSE 82; RESP 18; TEMP 37.1; O2SAT 97
--- NOTE | 2024-04-13 14:30 | HO.POSTANES ---
Post Anesthesia Evaluation Post Anesthesia Evaluation Date of Service: 04/13/24 Vital Signs: Vital Signs Temp Pulse Resp BP Pulse Ox O2 Del Method 04/13/24 14:12 98.7 F 82 18 132/76 97 Room Air 04/13/24 13:57 97.9 F 87 18 103/63 96 Room Air 04/13/24 10:22 96.9 F 85 18 141/72 H 97 Room Air Anesthesia: Monitored Mental Status: Awake Pain Control: Satisfactory Nausea/Vomiting: None Hydration: Adequate Anesthesia-Related Issues: No Anes. Related Issues
== END 2024-04-13 15:01 | disposition home or self-care (01) ==
PROVIDERS: PCP Student in an Organized Health Care Education/Training Program; Visit Provider Internal Medicine Gastroenterology
PROC: (CPT 43239; principal; 2024-04-13 11:50)
DX: K29.70 Gastritis, unspecified, without bleeding (principal); K21.9 Gastro-esophageal reflux disease without esophagitis; Z12.11 Encounter for screening for malignant neoplasm of colon; D12.2 Benign neoplasm of ascending colon; K57.30 Diverticulosis of large intestine without perforation or abscess without bleeding; K64.8 Other hemorrhoids; E11.9 Type 2 diabetes mellitus without complications; E78.5 Hyperlipidemia, unspecified; J45.909 Unspecified asthma, uncomplicated; Z86.19 Personal history of other infectious and parasitic diseases; Z79.84 Long term (current) use of oral hypoglycemic drugs; Z79.02 Long term (current) use of antithrombotics/antiplatelets; Z79.899 Other long term (current) drug therapy
CPT/HCPCS: 43239; 45385; 45380; 36415; 82947; 87081; 88305; 88313; 88342; J2704

== ENCOUNTER → 2024-04-13 09:46 | Outpatient (BNV) | payer MEDICAID, SELFPAY | PROVIDERS: PCP Student in an Organized Health Care Education/Training Program; Visit Provider Internal Medicine Gastroenterology | DX: Z12.11 Encounter for screening for malignant neoplasm of colon (principal); D12.2 Benign neoplasm of ascending colon; K64.8 Other hemorrhoids; K63.5 Polyp of colon; K57.90 Diverticulosis of intestine, part unspecified, without perforation or abscess without bleeding; K21.9 Gastro-esophageal reflux disease without esophagitis; K29.70 Gastritis, unspecified, without bleeding | CPT/HCPCS: 43239; 45380; 45385 ==

== ENCOUNTER 2024-04-21 08:43 | Outpatient (REF) | payer MEDICAID, SELFPAY ==
[2024-04-21 11:26] LABS: Hemoglobin 13.2 g/dl (12.0-16.0); Mean Corpuscular Hemoglobin 29.8 pg (27.0-33.0); Mean Corpuscular Volume 90.3 fL (80.0-98.0); Mean Platelet Volume 10.6 fL (9.4-12.3); Platelet Count 271 X10*3/uL (160-400); Red Blood Count 4.43 X10*6/uL (4.20-5.50); Red Cell Distribution Width 13.1 % (11.0-16.0); White Blood Count 7.6 X10*3/uL (4.8-10.8)
[2024-04-21 11:35] LABS: Estimated Average Glucose 166 mg/dL; Hemoglobin A1c % 7.4 % (<6.0)
[2024-04-21 11:53] LABS: Alanine Aminotransferase 15 U/L (0-31); Albumin Level 4.2 g/dL (3.5-5.0); Alkaline Phosphatase 112 U/L (39-117); Anion Gap 13 (12-20); Aspartate Amino Transferase 18 U/L (5-31); Bilirubin Total 0.4 mg/dL (0.0-1.0); Blood Urea Nitrogen 15 mg/dL (9-16); Calcium 9.4 mg/dL (8.4-10.2); Carbon Dioxide 26 mmol/L (22-29); Chloride 106 mmol/L (96-108); Cholesterol 197 mg/dL (<200); Estimated Glomerular Filt Rate > 60; Glucose Random 132 mg/dL (60-115); HDL Cholesterol 44 mg/dL (>40); LDL Cholesterol Calculated 85 mg/dL (<100); Potassium 4.2 mmol/L (3.3-5.1); Sodium 141 mmol/L (135-145); Total Protein 7.4 g/dL (6.5-8.0); Triglycerides 343 mg/dL (<150)
[2024-04-21 12:11] LABS: TSH reflex Free T4 1.12 uIU/mL (0.32-4.0)
[2024-04-21 12:27] LABS: Folate 12.9 ng/mL (> or = 4.0); Vitamin B12 313 pg/mL (200-900)
[2024-04-21 13:37] LABS: CT PCR NOT DETECTED (Not Detect.); NG PCR NOT DETECTED (Not Detect.)
[2024-04-22 08:29] LABS: Syphilis Screen Nonreactive (Nonreactive)
[2024-04-22 08:36] LABS: HBc Num1 0.08 S/CO (0.00-0.79); HBsAGNum1 0.24 S/CO (0.00-0.99); HIV AB/AG Nonreactive (Nonreactive); HIV Num 1 0.11 S/CO (0.00-0.99); Hepatitis B Core Antibody Nonreactive (Nonreactive); Hepatitis B Surface Antigen Negative (Negative); ~HepC Num1 0.04 S/CO (0.00-0.79); ~Hepatitis B Surface Antibody NONREACTIVE (Nonreactive); ~Hepatitis C Antibody Nonreactive (Nonreactive)
== END 2024-04-21 08:44 | disposition home or self-care (01) ==
LOC: HO.HHCL 08:43
PROVIDERS: Visit Provider Student in an Organized Health Care Education/Training Program
DX: Z00.00 Encounter for general adult medical examination without abnormal findings (principal)
CPT/HCPCS: 36415; 80053; 80061; 82607; 82746; 83036; 84443; 85027; 86704; 86706; 86780; 86803; 87340; 87389; 87491; 87591

== ENCOUNTER 2024-05-05 08:40 | Outpatient (AMB) | payer MEDICAID, SELFPAY ==
--- NOTE | 2024-05-05 08:41 | A.OFFVIS_ITS ---
Vital Signs 05/05/24 08:42 Height 5 ft 2 in Weight 149 lb 14.629 oz BMI 27.4 BP 131/66 Blood Pressure Location Lt brachial Position Sitting Pulse 80 Intake Visit Reasons: S/P Colon Intake Note: Cesia presents in the office as a follow up colonoscopy. CC: No concerns just here for the results. Drapery Cutter Machine Required: Yes Drapery Cutter Machine Name: Ayden [id number] Allergies No Known Allergies Allergy (Verified 05/05/24 08:45) HPI HPI S/P Colon: Details: LAST VISIT Gastroesophageal reflux disease History of Helicobacter pylori infection Postprandial abdominal bloating Plan History of H pylori in the past, found on upper endoscopy in April of 2022 and treated. Patient had an no H pylori in June. She has been on omeprazole, however recently stopped she can restart taking the every morning. Will send her for upper endoscopy to rule out H pylori, gastritis, duodenitis, esophagitis, May's. Patient will be sent for colonoscopy as well. Patient will be due in January of this year. Patient denies any melena, hematochezia, unintentional weight loss or ribbon like stools. Reports to be moving her bowels without any issues. What to expect before during and after procedure discussed with patient. The importance of clear liquid diet as well as good bowel prep discussed with patient. Patient denies any cardiac or respiratory symptoms. I will see patient after the procedure, sooner on as needed basis. Patient is agreeable to this plan and verbalizes understanding of instructions. She was given the opportunity to ask questions and all questions answered. ? Thank you for allowing me to participate in her care Medications New polyethylene glycol 3350 (Miralax) As directed by gastroenterology department at [facility] 238 grams PO ONCE 238 grams 0RF Z12.11 bisacodyl (Dulcolax (bisacodyl)) 10 mg (2 x 5 mg) PO BEDTIME 180 tabs 4RF Refilled omeprazole 40 mg PO DAILY 90 caps 1RF K21.9 UPPER ENDOSCOPY ON COLONOSCOPY Endoscopy Findings: Larynx: Normal Esophagus: GE junction at 35 cms. No esophagitis or May's. Stomach: Moderate diffuse gastric erythema with nodular appearing gastric mucosa. Biopsies were obtained for histology and Helicobacter culture and sensitivity. Grade 2 flap valve on retroflexed examination of the cardia. Duodenum: Normal bulb and descending duodenum Intervention: Biopsies as noted above Colonoscopy Findings: Terminal Ileum: Not evaluated Cecum: Normal Ascending Colon: A 5-6 mm sessile polyp - removed with a cold snare. A 2-3 mm sessile polyp - removed with a cold biopsy Transverse Colon: Moderate diverticulosis Descending Colon: Moderate diverticulosis Sigmoid Colon: Severe diverticulosis with luminal narrowing Rectum: Normal Ano-rectum: Moderate internal hemorrhoids Colon preparation: Good after copious irrigation. [place] Bowel Preparation Scale Right colon; 2 Transverse colon: 2 Left colon; 2 (0 = Unprepared colon segment with mucosa not seen due to solid stool that cannot be cleared. 1 = Portion of mucosa of the colon segment seen, but other areas of the colon segment not well seen due to staining, residual stool and/or opaque liquid. 2 = Minor amount of residual staining, small fragments of stool and/or opaque liquid, but mucosa of colon segment seen well. 3 = Entire mucosa of colon segment seen well with no residual staining, small fragments of stool or opaque liquid) Impression and Post Procedure Diagnosis: Endoscopy Findings: STOMACH: Moderate diffuse gastric erythema with nodular appearing gastric mucosa. Biopsies were obtained for histology and Helicobacter culture and sensitivity. Colonoscopy Findings: Two small polyps were removed Moderate to severe diverticulosis seen in the left and transverse colon Moderate hemorrhoids on retroflexed exam. Plan: Repeat Colonoscopy in 5 years if polyps are adenomatous and 10 year if polyps are hyperplastic. Await pathology results and if H Pylori is positive, patient can be re-treated according to culture and sensitivity results. PATHOLOGY RESULTS Diagnosis A. Stomach, body, biopsy: Antral-type mucosa with moderate chronic inactive inflammation; no Helicobacter organisms seen. B. Stomach, body, biopsy: Oxyntic mucosa with moderate chronic inactive inflammation; no Helicobacter organisms seen. C. Colon, ascending, polypectomies (2): - Tubular adenoma; negative for high-grade dysplasia or carcinoma. - Colonic mucosa with mild surface hyperplastic changes and small lymphoid aggregate TODAY'S VISIT Patient is here today for follow-up and to discuss upper endoscopy and colonoscopy results. Patient denies any ill effects from the prep, anesthesia or procedure itself. Upper endoscopy and colonoscopy results discussed with patient. Patient reports to be feeling well. Denies any acid reflux, dyspepsia, dysphagia or odynophagia. Reports that she is feeling well taking omeprazole daily. Patient denies any adverse symptoms at night. Denies melena, hematochezia. Reports that she is moving her bowels, however she feels like sometimes she gets constipated. Patient denies any other GI concerning symptoms [facility] Medical History (Updated 05/05/24 @ 09:17 by Georgie Chaudhari, [facility]) Diverticulosis Tubular adenoma of colon Gastroesophageal reflux disease Obesity Rhinitis Asthma Dyslipidemia Prediabetes Surgical History Hx of colonoscopy Hx of esophagogastroduodenoscopy Family History Mother Cancer Social History Patient Tobacco Use Status: Never used Tobacco Review of Systems Const Denies weight gain and Denies weight loss ENT Reports no additional complaints, Denies dysphagia and Denies odynophagia Card Reports no additional complaints Resp Reports no additional complaints GI Denies abdominal pain, Denies belching, Denies melena, Denies bloating, Denies c hange in bowel habits, Denies dysphagia, Denies excessive flatus, Denies dyspepsia, Denies heartburn, Denies diarrhea, Denies loose stools, Denies nausea, Denies odynophagia and Denies vomiting Musc Reports no additional complaints Neuro Reports no additional complaints Psych Reports no additional complaints Endo Reports no additional complaints Physical Exam Vital Signs: Last Vital Signs Pulse 80 05/05/24 08:42 BP 131/66 05/05/24 08:42 BMI result Body Mass Index 27.4 Const General: healthy appearing, no acute distress and well developed Nutritional Appearance: well nourished Orientation/consciousness: patient oriented x3 Resp Effort & Inspection: normal respiratory effort, able to speak in complete sentences, no tracheal deviation and symmetric chest movement Auscultation: clear to auscultation bilaterally Cardio Rate: regular rate GI Inspection: Yes normal to inspection and No distended Palpation (GI): Soft to palpation, not firm, nontender and No hepatosplenomegaly present Auscultation: normal bowel sounds General: Yes no CVA tenderness Back/Spine/Pelvis Back: no CVA tenderness Skin General skin exam: elasticity normal, turgor normal and dry skin Neuro General: patient oriented x3 Psych Appearance: grossly normal Mental Status: mental status grossly normal Assessment & Plan Assessment & Plan (1) Gastroesophageal reflux disease: Code(s): K21.9 - Gastro-esophageal reflux disease without esophagitis Category: Medical Qualifiers: Esophagitis presence: without esophagitis Qualified Code(s): K21.9 - Gastro-esophageal reflux disease without esophagitis (2) History of Helicobacter pylori infection: Code(s): Z86.19 - Personal history of other infectious and parasitic diseases (3) Postprandial abdominal bloating: Code(s): R14.0 - Abdominal distension (gaseous) (4) Constipation: Code(s): K59.00 - Constipation, unspecified Qualifiers: Constipation type: slow transit constipation Qualified Code(s): K59.01 - Slow transit constipation (5) Tubular adenoma of colon: Code(s): D12.6 - Benign neoplasm of colon, unspecified Category: Medical (6) Diverticulosis: Code(s): K57.90 - Diverticulosis of intestine, part unspecified, without perforation or abscess without bleeding Category: Medical Plan Avoid dietary triggers and late night snacking. Staying upright for minimum 3 hours after meals discussed with patient. Continue omeprazole. Colonoscopy in 5 years, sooner on as needed basis. One tubular adenoma without high-grade dysplasia or carcinoma. Moderate diverticulosis to left side of her colon. Increase fiber, take probiotic. Patient can take Senokot on as needed basis to help with bowel movement. Increase fluid intake and activity to promote better bowel motility. Patient will return in 6 months, sooner on as needed basis. She is agreeable to this plan and verbalizes understanding of instructions. She was given the opportunity to ask questions and all questions answered Medications: New sennosides (Natural Senna Laxative) 17.2 mg (2 x 8.6 mg) PO BEDTIME 60 tabs 3RF constipation K59.00 - Constipation, unspecified Refilled omeprazole 40 mg PO DAILY 90 caps 1RF K21.9 - Gastro-esophageal reflux disease without esophagitis Coding Level of Care Code Est Pt Level 3 (52870) Diagnoses Gastroesophageal reflux disease without esophagitis K21.9 Esophagitis presence: without esophagitis History of Helicobacter pylori infection Z86.19 Postprandial abdominal bloating R14.0 Slow transit constipation K59.01 Constipation type: slow transit constipation Tubular adenoma of colon D12.6 Diverticulosis K57.90 Time Spent (min) 25 Comment 15 minutes spent with patient and additional 10 minutes spent reviewing her records
[2024-05-05 08:42] VITALS: BP 131/66; PULSE 80; BMI 27.4
== END 2024-05-05 09:17 | disposition home or self-care (01) ==
PROVIDERS: PCP Student in an Organized Health Care Education/Training Program; Visit Provider Nurse Practitioner Family
DX: K21.9 Gastro-esophageal reflux disease without esophagitis (principal); Z86.19 Personal history of other infectious and parasitic diseases; R14.0 Abdominal distension (gaseous); K59.01 Slow transit constipation; D12.6 Benign neoplasm of colon, unspecified; K57.90 Diverticulosis of intestine, part unspecified, without perforation or abscess without bleeding
CPT/HCPCS: 99213

== ENCOUNTER → 2024-05-05 08:40 | Outpatient (BNVA) | payer MEDICAID, SELFPAY | PROVIDERS: PCP Student in an Organized Health Care Education/Training Program; Visit Provider Nurse Practitioner Family | DX: K21.9 Gastro-esophageal reflux disease without esophagitis (principal); K59.01 Slow transit constipation; K57.90 Diverticulosis of intestine, part unspecified, without perforation or abscess without bleeding; D12.6 Benign neoplasm of colon, unspecified; R14.0 Abdominal distension (gaseous); Z86.19 Personal history of other infectious and parasitic diseases | CPT/HCPCS: 99212 ==

== ENCOUNTER 2024-07-29 14:46 | Outpatient (REF) | payer MEDICAID, SELFPAY ==
--- NOTE | ~2024-07-29 | MM_ITS ---
EXAMINATION: MM SCREENING DIGITAL BREAST TOMOSYNTHESIS, BILATERAL CLINICAL INFORMATION: Screening. Asymptomatic. COMPARISON: Mammography: Comparison is made with available priors TECHNIQUE: Digital breast mammography with tomosynthesis is performed in both the craniocaudal and mediolateral oblique views along with computer-aided detection (CAD). FINDINGS: There are scattered areas of fibroglandular density (ACR BI-RADS breast composition Category b). Left marker clip. There are no significant masses, abnormal calcifications, or other abnormalities. MM/MM tomosynthesis screening BI IMPRESSION: No mammographic evidence of malignancy. ASSESSMENT: BI-RADS BI-RADS 2 - Benign Findings RECOMMENDATION: Routine annual mammography screening. 1 year F/U This examination should not preclude the clinical evaluation of a suspicious palpable abnormality. This patient's information was entered into a reminder system with a target due date for their next mammogram. Electronically signed by: Misti Bazzi DO 08/07/2024 10:01 AM DAVID
== END 2024-07-29 14:47 | disposition home or self-care (01) ==
LOC: HO.MAMMO 14:46
PROVIDERS: PCP Student in an Organized Health Care Education/Training Program; Visit Provider Student in an Organized Health Care Education/Training Program
DX: Z12.31 Encounter for screening mammogram for malignant neoplasm of breast (principal)
CPT/HCPCS: 77063; 77067

== ENCOUNTER → 2024-07-29 15:15 | Outpatient (BNV) | payer MEDICAID, SELFPAY | PROVIDERS: PCP Student in an Organized Health Care Education/Training Program; Visit Provider Internal Medicine | DX: Z12.31 Encounter for screening mammogram for malignant neoplasm of breast (principal) | CPT/HCPCS: 77063; 77067 ==

== ENCOUNTER 2024-08-26 10:43 | Outpatient (REF) | payer MEDICAID, SELFPAY ==
[2024-08-26 11:34] LABS: Estimated Average Glucose 146 mg/dL; Hemoglobin A1C 170.8403 umol/L; Hemoglobin A1c % 6.7 % (<6.0)
[2024-08-26 12:10] LABS: Alanine Aminotransferase 18 U/L (0-31); Albumin Level 4.2 g/dL (3.5-5.0); Alkaline Phosphatase 107 U/L (39-117); Anion Gap 12 (12-20); Aspartate Amino Transferase 21 U/L (5-31); Bilirubin Total 0.4 mg/dL (0.0-1.0); Blood Urea Nitrogen 14 mg/dL (9-16); Calcium 9.3 mg/dL (8.4-10.2); Carbon Dioxide 29 mmol/L (22-29); Chloride 106 mmol/L (96-108); Cholesterol 149 mg/dL (<200); Estimated Glomerular Filt Rate > 60; Glucose Random 135 mg/dL (60-115); HDL Cholesterol 49 mg/dL (>40); LDL Cholesterol Calculated 72 mg/dL (<100); Potassium 4.1 mmol/L (3.3-5.1); Sodium 143 mmol/L (135-145); Total Protein 7.3 g/dL (6.5-8.0); Triglycerides 144 mg/dL (<150)
[2024-08-26 12:34] LABS: Folate 12.5 ng/mL (> or = 4.0); Vitamin B12 321 pg/mL (200-900)
== END 2024-08-26 10:44 | disposition home or self-care (01) ==
LOC: HO.HHCL 10:43
PROVIDERS: Visit Provider Student in an Organized Health Care Education/Training Program
DX: E11.69 Type 2 diabetes mellitus with other specified complication (principal); E78.5 Hyperlipidemia, unspecified
CPT/HCPCS: 36415; 80053; 80061; 82043; 82570; 82607; 82746; 83036

== ENCOUNTER 2024-09-15 14:09 | Outpatient (REF) | payer MEDICAID, SELFPAY | END 2024-09-15 14:10 | disposition home or self-care (01) | LOC: HO.US 14:09 | PROVIDERS: PCP Student in an Organized Health Care Education/Training Program; Visit Provider Student in an Organized Health Care Education/Training Program | DX: R22.32 Localized swelling, mass and lump, left upper limb (principal) | CPT/HCPCS: 76882 ==

== ENCOUNTER 2024-12-01 09:48 | Outpatient (REF) | payer MEDICAID, SELFPAY ==
--- NOTE | ~2024-12-01 | MR_ITS ---
CLINICAL HISTORY: 0.6 cm solid mass with peripheral vascularity on u s MRI suggested MR of the left hand before and after intravenous contrast. No comparison. Findings: No suspicious bony lesions are seen. There is a small cyst of the 3rd metacarpal head measuring 4 mm likely incidental. No soft tissue masses are seen. There is probable early degenerative change of the 1st carpometacarpal articulation. There is mild tenosynovitis of the flexor tendons of the ring finger and extensor carpi ulnaris. No tendon disruption is identified. Impression: Superficial to the abductor pollicis brevis there is a focally dilated superficial vein measuring 10 x 4 mm. No soft tissue masses are seen. Small cyst in the 3rd metacarpal head. Mild tenosynovitis of the flexor tendons of the ring finger and extensor carpi ulnaris. This document has been electronically signed by: Med Jenkins MD on 12/02/2024 18:47:30
--- OUTSIDE RECORDS SUMMARY | 2024-12-01 11:18 | XMS_ITS | Encounter Summary ---
Author Organization [employer] Address [address] [facility] 7[address] [place] [address] Care Team Providers Care Doughnut Maker Name Role Phone Abigail Lassiter MD Primary Care Pro vider Reason for Visit * Reason Comments Med Refill Encounter Details Date Type Department Care Team ([facility] st Contact Info) Description 11/05/2024 Refill [facility] [address] [place] [address] Abigail Lassiter MD [address] [place] [address] Social History Tobacco Use Types Packs/Day Years Used Date Smoking Tobacco: Never Passive Smoke Exposure: Never Smokeless Tobacco: Never Alcohol Use Standard Drinks/Week Comments Yes 0 (1 standard drink = 0.6 oz pur e alcohol) social Depression Answer Date Recorded Patient Health Questionnaire-9 Score 2 03/19/2024 Patient Health Questionnaire-9 Score 2 03/19/2024 Last PHQ-9: Questionnaire Data Not on file 0 03/19/2024 Housing Stability Answer Date Recorded What is your housing situation today? I have christine murguia 07/18/[address] you li ve. Do you have problems with any of the following? None of the above 07/18/2023 Food Insecurity Answer Date Recorded Within the past 12 months, y ou worried that your food would run out before you got money to buy more: Never True 07/18/2023 Within the past 12 months,th e food you bought just didn't last and you didn't have enough money to get more: Never True Transportation Answer Date Recorded In the past 12 months, has l ack of transportation kept you from medical appts, meetings, work or from getting things needed for daily living? No 07/18/2023 Utilities Answer Date Recorded In the past 12 months, has t he electric, gas, oil or water company threatened to shut off services in your home? No 07/18/2023 Depression Answer Date Recorded Patient Health Questionnaire-2 Score 0 03/19/2024 Comments No Sex and Gender Information Value Date Recorded Sex Assigned at Female 07/30/2022 10:14 AM EDT Legal Sex Female 10:14 AM EDT Gender Identity Choose not to disclose 10:14 AM EDT Sexual Orientation Choose not to disclose 2021 10:14 AM EDT documented as of this encounter Plan of Treatment Upcoming Encounters Date Type Department Care Team (Late st Contact Info) Description 01/08/2025 10:30 AM EDT Office Visit [facility] [address] [place], [place] [phone] JohnyNeyda arrington, OD [address] [place] [address] documented as of this encounter Visit Diagnoses Not on filedocumented in this encounter Additional Health Concerns Assessment Noted Time PHQ-9 Depression Total Score: 2 03/19/20 24 9:02 AM EDT documented as of this encounter Care Teams Doughnut Maker Relationship Specialty Start Date End Date Abigail Lassiter MD [address] [place] [address] PCP - General Internal Medicine 02/08/23 documented as of this encounter
--- OUTSIDE RECORDS SUMMARY | 2024-12-01 11:18 | XMS_ITS | Encounter Summary ---
Author Organization [employer] Address [address] [facility] 7t [place] [address] Care Team Providers Care Public Relations Analyst Name Role Phone Abigail Lassiter MD Primary Care Pro vider Reason for Visit * Reason Onset Date Comments Results 11/20/2024 Encounter Details Date Type Department Care Team ([facility] st Contact Info) Description 11/20/2024 Telephone [facility] [address] [place], [place] [phone] Farzana Zavala RN [address] [place], [place] [phone] Results Social History Tobacco Use Types Packs/Day Years [...] AM EDT documented as of this encounter Miscellaneous Notes * Telephone Encounter - Farzana Zavala RN - 11/23/2024 10:15 AM EST Telephone call placed to pt utilizing [employer] #[id number]. Informed MRI ordered. Let us know if she doesn't receive call to schedule within 2 weeks. Will send task to make sure provider reviews as soon as results are back. * Telephone Encounter - Farzana Zavala RN - 11/20/2024 3:15 PM EST Pt walked into green team lobby inquiring about US of hand results that were resulted 09/29/25. Reports that she can barely close her hand because it has gotten worse. Reviewed results. They showed A 0.6 cm solid mass with peripheral vascularity is identified in the indicated area along the ventral aspect of the lower part of the thumb/base. Correlation with clinical exam and possible additional imaging with MRI recommended for further evaluation. Explained that it did show the lump that sheshowed to the doctor at her appt and that I will send to a covering provider since PCP is out of office and I will call her with an update CATHERINE. Pt agreeable. documented in this encounter Plan of Treatment Upcoming Encounters Date Type Department Care Team (Late st Contact Info) Description 01/08/2025 10:30 AM EDT Office Visit [facility] [address] [facility], [place] [phone] Neyda Mcclain, OD [address] [place] [address] documented as of this encounter Visit Diagnoses Not on filedocumented in this encounter Additional Health Concerns Assessment Noted Time PHQ-9 Depression Total Score: 2 03/19/20 24 9:02 AM EDT documented as of this encounter Care Teams Public Relations Analyst Relationship Specialty Start Date End Date Abigail Lassiter MD [address] [place], [place] [phone] PCP - General Internal Medicine 02/08/23 documented as of this encounter
--- OUTSIDE RECORDS SUMMARY | 2024-12-01 11:18 | XMS_ITS | Encounter Summary ---
Author Organization [employer] Address [address] [facility] [address]t [place] [address] Care Team Providers Care Respiratory Director Name Role Phone Abigail Lassiter MD Primary Care Pro vider Reason for Visit * Reason Comments Med Refill Encounter Details Date Type Department Care Team ([facility] st Contact Info) Description 07/19/2024 Refill [facility] [address] [place] [address] Abigail Lassiter MD [address] [place] [address] Pain Social History Tobacco Use Types Packs/Day Years [...] Description 01/08/2025 10:30 AM EDT Office Visit [facility] OPTOMETRY [address] [place], [place] [phone] Neyda Mcclain, OD [address] [place] [address] documented as of this encounter Visit Diagnoses Diagnosis Pain Generalized pain documented in this encounter Additional Health Concerns Assessment Noted Time PHQ-9 Depression Total Score: 2 03/19/20 24 9:02 AM EDT documented as of this encounter Care Teams Respiratory Director Relationship Specialty Start Date End Date Abigail Lassiter MD [address] [place] [address] PCP - General Internal Medicine 02/08/23 documented as of this encounter
--- OUTSIDE RECORDS SUMMARY | 2024-12-01 11:18 | XMS_ITS | Encounter Summary ---
Author Organization [employer] Address [address] [place] [address] [address] [place] [address] Care Team Providers Care Honest John Rocket Crew Member Name Role Phone Abigail Lassiter MD Primary Care Pro vider Reason for Referral * Imaging (Routine) - Closed Specialty Diagnoses / Procedures Referred By Contac t Referred To Contact Radiology Diagnoses Mass of left hand Procedures MR Hand w/ and w/o Contrast Left Isaak Varghese MD [address] [place] [phone] Phone: tel: fax: [address] Phone: tel: fax: Referral ID Status Reason Start Date Expiration Date Visits Re quested Visits Authorized [id number] Closed 11/20/2024 11/20/2025 1 1 Encounter Details Date Type Department Care Team (Late st Contact Info) Description 11/20/2024 Orders Only [facility] [address] [place] [address] Isaak Varghese MD [address] [place] [phone] Mass of left hand (Primary Dx) Social History Tobacco Use Types Packs/Day Years [...] Description 01/08/2025 10:30 AM EDT Office Visit [facility] OPTOMETRY [address] [place] [address] Johny, Neyda, OD [address] [place] [address] Scheduled Orders Name Type Priority Associated Diagnoses Orde r Schedule MR Hand w/ and w/o Contrast Left Imaging Routine Mass of left hand Expected: 11/20/2024, Expires: 11/20/2025 documented as of this encounter Visit Diagnoses Diagnosis Mass of left hand- Primary documented in this encounter Additional Health Concerns Assessment Noted Time PHQ-9 Depression Total Score: 2 03/19/20 24 9:02 AM EDT documented as of this encounter Care Teams Honest John Rocket Crew Member Relationship Specialty Start Date End Date Abigail Lassiter MD [address] [place] [id number] PCP - General Internal Medicine 02/08/23 documented as of this encounter
--- OUTSIDE RECORDS SUMMARY | 2024-12-01 11:18 | XMS_ITS | Clinical Summary ---
Author Organization [employer] Address [address] [facility] [address] [place] [address] Care Team Providers Care Family And Divorce Legal Assistant Name Role Phone Abigail Lassiter MD Primary Care Pro vider Allergies No known active allergies Medications TRUEplus Lancets 33G misc TEST BLOOD SUGAR DAILY DIRECTED 02/02/20 23 Active Blood Glucose Monitoring Suppl (AlgisysStyle Hawley Lite) w/Device kit Use to test blood sugar bid dx dm 1 kit 08/16/20 23 Active FREESTYLE LITE test strip TEST BLOOD SUGAR DAILY DIRECTED 50 strip 1 09/06/20 23 Active polyvinyl alcohol (Liquifilm Tears) 1.4 % ophthalmic solution PLACE 1 DROP IN EACH EYE THREE OR FOUR TIMES DAILY 15 mL 11 10/21/19 24 Active omeprazole (PriLOSEC) [address] capsule Take 1 capsule (40 mg) by mouth Once per day. 90 capsule 03/19/20 24 Active lidocaine (Lidoderm) 5 % patch Apply 1 patch topically Once per day. Remove & discard patch within 12 hours or as directed by . 30 patch 1 03/19/20 24 Active albuterol (Ventolin HFA) 108 (90 Base) MCG/ACT inhalerIndicatio ns:Mild intermittent asthma without complication Inhale 2 puffs every 4 (four) hours if needed for wheezing. 18 g 2 04/24/20 24 Active Januvia 100 MG tablet TAKE 1 TABLET BY MOUTH EVERY DAY 90 tablet 1 06/08/20 24 Active acetaminophen (Tylenol 8 Hour) 650 MG ER tabletIndication s:Pain TAKE 2 TABLETS BY MOUTH EVERY 8 HOURS NEEDED SWALLOW WHOLE WITH WATER WATER, DO NOT BREAK, CRUSH, DISSOLVE OR CHEW 60 tablet 1 07/29/20 24 Active atorvastatin (Lipitor) 20 MG tablet TAKE 1 TABLET BY MOUTH EVERY DAY IN THE MORNING 90 tablet 09/08/20 24 Active omega-3 (Fish Oil) 1000 MG capsule TAKE 1 CAPSULE BY MOUTH EVERY DAY 90 capsule 1 11/05/19 25 Active omega-3 (fish oil) 1000 MG capsule Take 1 capsule (1,000 mg) by mouth Once per day. 90 capsule 1 04/24/20 24 025 Discontinued Active Problems Problem Noted Date Diagnosed Date Mass of left hand 08/26/2024 Diverticulosis 04/24/2024 Family history of breast cancer 03/19/2024 Hyperlipidemia 05/18/2023 Assessment & Plan (05/18/2023 2:21 PM EDT): 03/2023: -total ch 256,trig 266,HDL 51,LDL 152, alk phos mild elevated at 126 ACVD: 8.7% (high statin recommendation). -Lifestyle changes advised. Increase Lipitor to 20 mg daily. -Repeat fasting lipids and chem in 3 mo. Health care maintenance 04/16/2023 Assessment & Plan (05/18/2023 2:19 PM EDT): -menopause: 52 y of age -pap smear - repeated Pap smear 05/15/2023 w Antoni Clarke Results pending. -MM 2019 : BIRADS 2, , had breast MRI 2015 :No definite evidence of malignancy. No suspicious interval change.There are some sharply circumscribed T2 intense early enhancing small nodules in the right breast. At least one of these is demonstrated onmammography and there has been no suspicious change. These may represent fibroadenoma or lymph nodes.---referred already for MM. Per pt apt is for 06/2023. According to result will consider breast MRI. --- Pt agreed today for genetics referral given significant family Hx of breast ca. -colonoscopy: per GI note reports to have repeated in 01/2024 -vaccines: Hep B not immune - refused vaccination. S/p p23 2010 s/p p20 , tdap 03/2023, covid vaccine never and refuse. Offered today Shingrix vaccine, wants to hold for now. Assessment & Plan (04/16/2023 2:12 PM EDT): -menopause: 52 y of age -pap smear > 3 years ago normal per pt ( pt s/p partial hysterectomy? --[facility]erred today to [facility] : BIRADS 2, , had breast MRI 2015 :No definite evidence of malignancy. No suspicious interval change.There are some sharply circumscribed T2 intense early enhancing small nodules in the right breast. At least one of these is demonstrated on mammography and there has been no suspicious change. These may represent fibroadenoma or lymph nodes.---referred today x screening MM -colonoscopy: per GI note reports to have repeated in 01/2024 -vaccines: s/p p23 2010 today p20 , tdap 2009 today tdap booster, covid vaccine never and refuse.Will offer zoster vaccine at next visit -labs x annual exam -will RTC in fasting -pt agreed to have STI testing including HIV to have for baseline Overweight 04/16/2023 Assessment & Plan (05/18/2023 2:07 PM EDT): -Decreased 2 lbs in last mo. Advised pt to improve diet and exercise,discussed healthy life style -discussed csr technician referral -refusing Assessment & Plan (04/16/2023 2:04 PM EDT): Advised pt to improve diet and exercise,discussed healthy life style -discussed csr technician referral -refusing Depression 04/16/2023 Assessment & Plan (05/18/2023 2:18 PM EDT): Mild depression,states to be associated that her son is in senior care PHQ9: 4 ,denies SI -refuse BH referral -states followed in the past and was not helpful x her -advised to improve activity ,yoga,meditation -px melatonin prn x insomnia that reports to be sporadic -will continue to monitor Assessment & Plan (04/16/2023 2:14 PM EDT): Mild depression,states to be associated that her son is in senior care PHQ9: 4 ,denies SI -refuse BH referral today-states followed in the past and was not helpful x her -advised to improve activity ,yoga,meditation -px melatonin prn x insomnia that reports to be sporadic -will continue to monitor Type 2 diabetes mellitus with hyperlipidemia (CM S/HCC) 07/04/2022 Overview (12/20/2022): Foot exam wnl 09/03/22. Eye exam previously referred. A1c 8.2% today 12/20/22, above goal </= 7.0%. Increase metformin XR to 500mg BID. Holding atorvastatin b/c she's not taking (got chest tightness w/ rosuvastatin) and ASCVD risk 6.1% 06/2022 borderline. Have encouraged exercise and Mediterranean diet. She will try to remember to take metformin. Declines SGLT2i and injectable med at 12/20/22 visit. Assessment & Plan (05/18/2023 2:09 PM EDT): 03/2023 Hb1AC is 7.2<--8.1, microalb neg, LDL 152. -Continue Metformin XR every day and recently started Jardiance 10 mg every day. Denies SE. -Continue Atorvastatin, but will increase to 20 mg every day. -DM labs in 3 mo. -opthalmo last 01/2023 - next apt 06/17/2023. 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 Assessment & Plan (04/16/2023 2:11 PM EDT): 03/2023 Hb1AC is 8.1 today -will do DM labs -advised to continue metformin ER daily and will start farxiga 5 mg daily -pt denies hx of recurrent UTIs nor yeast infections and denies hx of pancreatitis - explained possible SE -will resume atorvastatin low dose -pt reports hx of chest discomfort w crestor but stopped atorvastatin given noted increase in Cbgs -opthalmo last 01/2023 -Referred today to media relations associate Gastroesophageal reflux disease without esophagi tis 09/20/2015 Assessment & Plan (05/18/2023 2:20 PM EDT): f w GI on chronic PPis, recently seen by her GI. Decreased Omeprazol 40 mg daily from BID. Plan to f u in 6 mo w GI to see if can discontinue PPIs Assessment & Plan (04/16/2023 2:01 PM EDT): f w GI on chronic PPis Mild persistent asthma 09/20/2015 Assessment & Plan (05/18/2023 2:16 PM EDT): Controlled -reports not needing albuterol x last years-refilled as needed Assessment & Plan (04/16/2023 2:01 PM EDT): Controlled -reports not needing albuterol x last years-refilled today as needed Vitiligo 09/20/2015 Assessment & Plan (05/18/2023 2:07 PM EDT): Reports worsening vitiligo -pt would like to see pulmonary physical therapist-referred already. Apt for 05/2023 Assessment & Plan (04/16/2023 2:04 PM EDT): Reports worsening vitiligo -pt would like to see pulmonary physical therapist-referred today Resolved Problems Problem Noted Date Diagnosed Date Resolved Date Acute pain of right shoulder 03/19/2024 04/24/2024 Constipation 10/22/2023 03/19/2024 Empty sella turcica 05/18/2023 10/22/19 24 Overview (10/22/2023): -CT head/brain wo IV contrast 02/2023 : No acute intracranial pathology. Incidental empty sella noted -Denies having headaches -03/2023: AM Cortisol, Prolactin, IGF-1 - all wnl. Assessment & Plan (05/18/2023 2:04 PM EDT): -CT head/brain wo IV contrast 02/2023 : No acute intracranial pathology. Incidental empty sella noted -Denies having headaches anymore. -03/2023: AM Cortisol, Prolactin, IGF-1 - all wnl. Headache 04/16/2023 05/18/2023 Assessment & Plan (04/16/2023 2:01 PM EDT): Reports improved WATKINS -now sporadically Takes tylenol prn -CT head/brain wo IV contrast 02/2023 : No acute intracranial pathology. Incidental empty sella noted -pt reports on and WATKINS but improving,repors fatigue,denies sexual dysfunction --will do hormonal workup x empty sella seen , if low am cortisol will do ACTH -advised pt to have labs before 9 am -will monitor WATKINS at next apt Encounters Date Type Department Care Team Description 11/20/2024 Orders Only [facility] [address] [place] [address] Isaak Varghese MD Mass of left hand (Primary Dx) 11/20/2024 Telephone [facility] [address] [place] [address] Farzana Zavala RN Results 11/05/2024 Refill [facility] [address] [place] [address] Abigail Lassiter MD 09/17/2024 10:20 AM EST Office Visit [facility] [address] [place] [address] Nathaniel Conner MD Cellulitis of face (Primary Dx) 09/17/2024 Orders Only [facility] [address] [place] [address] Dianna Fu MD 09/15/2024 Orders Only [facility] [address] [place] [address] Abigail Lassiter MD 09/06/2024 Refill [facility] [address] [place] [phone] Abigail Lassiter MD from Last 3 Months Immunizations Name Administration Dates Next Due Influenza, Split (incl. purified surface antigen ) 10/09/2013,06/26/2012 Pneumococcal Conjugate PCV 20 04/16/2023 Pneumococcal Polysaccharide PPSV23 08/07/2011 TD (adult), 2 Lf tetanus tox oid, preservative free, adsorbed 04/24/2001 Tdap 04/16/2023,04/17/2010 Family History Medical History Relation Name Comments Coronary artery disease Father Breast cancer Maternal Grandmother Breast cancer Mother Parkinsonism Mother Breast cancer Mother's Sister Relation Name Status Comments Father Maternal Grandmother Mother Mother's Sister Social History Tobacco Use Types Packs/Day Years Used Date Smoking Tobacco: Never Passive Smoke Exposure: Never Smokeless Tobacco: Never Tobacco Cessation:Counseling Given: Not Answered Alcohol Use Standard Drinks/Week Comments Yes 0 [...] not to disclose 2021 10:14 AM EDT Last Filed Vital Signs Vital Sign Reading Time Taken Comments Blood Pressure 127/78 09/17/2024 10:18 AM EST Pulse 87 09/17/2024 10:18 AM EST Temperature 36.6 ??C (97.9 ??F) 09/17/2024 10:[address] Respiratory Rate 16 09/17/2024 10:18 AM EST Oxygen Saturation 97% 09/17/2024 10:18 AM EST Inhaled Oxygen Concentration - - Weight 66.7 kg (147 lb) 09/17/2024 10:18 AM EST Height 157.5 cm (5' 2 ) 04/24/2024 9:50 AM EDT Body Mass Index 26.89 04/24/2024 9:50 AM EDT Plan of Treatment Upcoming Encounters Date Type Department Care Team (Late st Contact Info) Description 01/08/2025 10:30 AM EDT Office Visit [facility] [address] [place] [address] Johny, Neyda, OD [address] [place] [address] Health Maintenance Due Date Last Done Comments CT Colonography 1962 FIT DNA/Cologuard 1962 FIT 1962 FOBT 1962 Sigmoidoscopy 1962 Diabetes: Foot Exam 1972 Alcohol/Substance Use Screening 1974 Hepatitis A Vaccines (1 of 2 - Risk 2-dose series) 1981 Zoster Vaccines (1 of 2) 2012 Hepatitis B Vaccines (1 of 3 - Risk 3-dose series) 2022 RSV Patients and Patients Aged 60 years or older (1 - Risk 60-74 years 1-dose series) 2022 COVID-19 Vaccine ( - season) 2024 Influenza Vaccine (#1) 2024 10/09/2013, 2011 Diabetes: Hemoglobin A1C 02/23/2025 024, 08/25/2024, 04/21/2024, Additional history exists SDOH Screening 03/06/2025 03/06/2024 Depression Screening 03/19/2025 03/19/2024, 03/19/20 24 Tobacco Screening 04/24/2025 04/24/2024 Mammogram 07/29/2025 07/29/2024, 07/01, 07/18/2022, Additional history exists Diabetes: Urine Protein Screening 08/26/2025 08/26/2024, 04/23/2023, 07/10/2022, Additional history exists Lipid Panel 08/26/2025 08/26/2024, 03/31, 09/10/2023, Additional history exists Eye Exam 12/15/2025 12/16/2023, 11/28, 12/16/2023, Additional history exists Cervical Cancer Screening 05/15/2026 HPV/Cotest 05/15/2026 05/15/2023 Pap Smear 05/15/2026 05/15/2023 Colonoscopy 04/13/2029 04/13/2024 Colorectal Cancer Screening 04/13/2029 DTaP/Tdap/Td Vaccines (3 - Td or Tdap) 04/16/2033 04/16/2023, 04/17/2010, 04/24/2001 Pneumococcal Vaccine: 50+ Years Completed 04/16/2023, 08/07/2011 HIV Screening Completed 04/21/2024 Hepatitis C Screening Completed 04/21/2024 HIB Vaccines Aged Out No longer eligi ble based on patient's age to complete this topic HPV Vaccines Aged Out No longer eligi ble based on patient's age to complete this topic IPV Vaccines Aged Out No longer eligi ble based on patient's age to complete this topic Meningococcal Vaccine Aged Out No naun wendy eligible based on patient's age to complete this topic RSV under 20 months Aged Out No longe r eligible based on patient's age to complete this topic Rotavirus Vaccines Aged Out No longer eligible based on patient's age to complete this topic Procedures Procedure Name Priority Date/Time Associated Diagnosis Comments US EXTREMITY NON-VASCULAR Routine 09/15/2024 2:20 PM EST ALBUMIN, RANDOM URINE W/CREATININE Routine 08/26/2024 10:45 AM EST Type 2 diabetes mellitus with hyperlipidemia (CMS/HCC) (CMS/HCC) HEMOGLOBIN A1C Routine 08/26/2024 10:45 AM EST Type 2 diabetes mellitus with hyperlipidemia (CMS/HCC) (CMS/HCC) LIPID PANEL, STANDARD Routine 08/26/2024 10:45 AM EST Type 2 diabetes mellitus with hyperlipidemia (CMS/HCC) (CMS/HCC) BI MAMMOGRAM SCREENING TOMOSYNTHESIS BILATERAL Routine 07/29/2024 3:00 PM EDT HEPATITIS C AB W/REFL TO HCV RNA, QN, PCR Routine 04/21/2024 8:53 AM EDT Annual physical exam HIV 1/2 ANTIGEN/ANTIBODY, FOURTH GENERATION W/RFL Routine 04/21/2024 8:53 AM EDT Annual physical exam HM COLONOSCOPY Routine 04/13/2024 8:39 AM EDT HPV MRNA E6/E7 REFLEX TO HPV 16, 18/45 Routine 05/15/2023 12:00 AM EDT PAP SMEAR Routine 05/15/2023 from Last 3 Months or Most Recently Relevant to Health Maintenance Results * US Extremity Non Vascular (09/15/2024 2:20 PM EST) Anatomical Region Laterality Modality Ultrasound 09/15/2024 2:20 PM EST Narrative 09/29/2024 1:34 PM EST ? [facility] ?[address] ?[place] [address] ? Ultrasound Report ? Signed ? Patient: Cesia Underwood ?MR#: [id number] ?? 0 ? : 1960 ?Acct:[id number] ? Age/Sex: 64 / F ?ADM Date: 09/15/24 ? Loc: HO.US ? Attending Dr: Abigail Muñoz MD ? Ordering Physician: Abigail Lassiter MD ?? Date of Service: 09/15/24 ?? Procedure(s): US extremity nonvascular ?? Accession Number(s): [id number] ? cc: Abigail Lassiter MD ? EXAMINATION: ?? ULTRASOUND SOFT TISSUES LEFT VENTRAL HAND, BASE OF THUMB ? CLINICAL INDICATION: ?? Left hand superficial mass sensation over ventral aspect, base of thumb. ? COMPARISON: ?? None available. ? TECHNIQUE: ?? Targeted ultrasound images were obtained by the av specialist of the area ?? of concern as indicated by the patient along the ventral base of the ?? left thumb. ? Radiologist was not in attendance. Images were later provided for ?? interpretation. ? FINDINGS: A 0.6 x 0.3 x 0.5 cm hypoechoic, wider than tall, solid mass ?? with well-defined margins and are definitely peripheral vascularity is ?? identified in the indicated area along the ventral aspect of the lower ?? part of the thumb/base. ? US/US extremity nonvascular ?? IMPRESSION: ?? A 0.6 cm solid mass with peripheral vascularity is identified in the ?? indicated area along the ventral aspect of the lower part of the ?? thumb/base. Correlation with clinical exam and possible additional ?? imaging with MRI recommended for further evaluation. ? Electronically signed by: ??Adriana Mir MD ??09/29/2024 01:31 PM EST ? Dictated By: ?Adriana Mir MD ? Signed By: ?<Electronically signed by Adriana Mir MD in OV> ? 09/29/24 1331 ? DD/ 1420 ? TD/TT: 09/15/24 1425 ? Shank Paperer: ? Procedure Note Jayy Wade - 09/29/2024 [place] [address] Ultrasound Report Signed Patient: Jamila Underwood#: [id number] 0 : 1960cct:[id number] Age/Sex: 64 / FADM Date: 09/15/24 Loc: HO.US Attending Dr: Abigail Muñoz MD Ordering Physician: Abigail Lassiter MD Date of Service: 09/15/24 Procedure(s): US extremity nonvascular Accession Number(s): [id number] cc: Abigail Lassiter MD EXAMINATION: ULTRASOUND SOFT TISSUES LEFT VENTRAL HAND, BASE OF THUMB CLINICAL INDICATION: Left hand superficial mass sensation over ventral aspect, base of thumb. COMPARISON: None available. TECHNIQUE: Targeted ultrasound images were obtained by the av specialist of the area of concern as indicated by the patient along the ventral base of the left thumb. Radiologist was not in attendance. Images were later provided for interpretation. FINDINGS: A 0.6 x 0.3 x 0.5 cm hypoechoic, wider than tall, solid mass with well-defined margins and are definitely peripheral vascularity is identified in the indicated area along the ventral aspect of the lower part of the thumb/base. US/US extremity nonvascular IMPRESSION: A 0.6 cm solid mass with peripheral vascularity is identified in the indicated area along the ventral aspect of the lower part of the thumb/base. Correlation with clinical exam and possible additional imaging with MRI recommended for further evaluation. Electronically signed by: Adriana Mir MD 09/29/2024 01:31 PM EST Dictated By: Adriana Mir MD Signed By: <Electronically signed by Adriana Mir MD in OV> 09/29/24 1331 DD/ 1420 TD/TT: 09/15/24 1425 Shank Paperer: Abigail Muñoz MD IMG US PROCEDURES Final Result * Albumin, Random Urine W/Creatinine (08/26/2024 10:45 AM EST) Creatinine, Urine 124.90 mg/dL [facility] Microalbumin Urine 10.0 mg/L [facility] Microalbum Creatinine Ratio Ur 8.0 <30 ug/mg cr [facility] Comment:Albumin/Creatinine R atio Reference Ranges: Normal: < 30 ug/mg creatinine Microalbuminuria: 30 - 300 ug/mg creatinineClinical Albuminuria: > 300 ug/mg creatinine Urine (Urine, Random) 08/26/2024 10:45 AM EST 08/26/2024 11:10 AM EST Abigail Muñoz MD LAB URINE ORDERAB LES Final Result [facility] [address] [place] [address] [phone] * (ABNORMAL) Hemoglobin A1c (08/26/2024 10:45 AM EST) Hemoglobin A1c 6.7(H) <6.0 % [facility] Comment:Hemoglobin A1C Refer ence Range Adults: 4.8 - 6.0 % Non diabetic: < 6.0 % Goal: < 7.0 %Additional Action Suggested: > 8.0 %Note: Hemoglobin A1c results are invalid for patients with abnormal amounts of HbF. Blood transfusions may impact the HbA1c concentration in the patient sample. Estimated Average Glucose 146 mg/dL [facility] Comment:eAG = Estimated ave rage glucose which is %A1C expressed asaverage glucose, using the formula of the M2V-XijbokoVimizbe Glucose study (ADAG), Diabetes Care, Vol.31,#8,Apr. 2007 Blood Venous blood specimen / Unknown 08/26/2024 10:45 AM EST 08/26/2024 11:12 AM EST us Abigail Muñoz MD LAB BLOOD ORDERAB LES Final Result [facility] [address] [place] [phone] * Lipid Panel, Standard (08/26/2024 10:45 AM EST) Triglycerides 144 <150 mg/dL [facility] Comment:Desirable Triglyceri de: less than 150 mg/dLBorderline High Triglyceride 150-199 mg/dLHigh Triglyceride: 200-499 mg/dLVery High Triglyceride: greater than or equal to 5OO mg/dL Cholesterol 149 <200 mg/dL [facility] Comment:Desirable Cholestero l: less than 200 mg/dLBorderline High Cholesterol: 200-239 mg/dLHigh Cholesterol: greater than 239 mg/dL LDL Cholesterol Calculated 72 <100 mg/dL [facility] Comment:Desirable LDL: less than 100 mg/dLNear Optimal/Above Optimal LDL: 110- 129 mg/dLBorderline High LDL: 130-159 mg/dLHigh LDL: 160-189 mg/dLVery High LDL: greater than or equal to 190 mg/dL HDL Cholesterol 49 >40 mg/dL [facility] Comment:Desirable HDL: great er than 40 mg/dL Note: This HDL assay may give artificially low results in patients with liver disease. Blood Venous blood specimen / Unknown 08/26/2024 10:45 AM EST 08/26/2024 11:17 AM EST us Abigail Muñoz MD LAB BLOOD ORDERAB LES Final Result [facility] [address] [place] [address] [phone] * BI Mammogram Screening Tomosynthesis Bilateral (07/29/2024 3:00 PM EDT) Anatomical Region Laterality Modality Breast Bilateral Mammography 07/29/2024 3:00 PM EDT Narrative 08/07/2024 10:04 AM EST ? [facility] ? [address] ?[place] [address] ? Mammography Report ? Signed ? Patient: Kj,Cesia ?MR#: [id number] ?? 0 ? : 1960 ?Acct:[id number] ? Age/Sex: 64 / F ?ADM Date: 07/29/24 ? Loc: HO.MAMMO ? Attending Dr: Abigail Muñoz MD ? Ordering Physician: Abigail Lassiter MD ?Re ?? sults: 2Benign Findings ? Date of Service: 07/29/24 ?Follow Up: 1 Year From Orig ?? inal Mammogram ? Procedure(s): MM tomosynthesis screening BI ?? Accession Number(s): [id number] ? cc: Abigail Lassiter MD ? EXAMINATION: ?? MM SCREENING DIGITAL BREAST TOMOSYNTHESIS, BILATERAL ? CLINICAL INFORMATION: ? Screening. Asymptomatic. ? COMPARISON: ?? Mammography: Comparison is made with available priors ? TECHNIQUE: ?? Digital breast mammography with tomosynthesis is performed in both the ?? craniocaudal and mediolateral oblique views along with computer-aided ?? detection (CAD). ? FINDINGS: ?? There are scattered areas of fibroglandular density (ACR BI-RADS breast ?? composition Category b). ?? Left marker clip. ?? There are no significant masses, abnormal calcifications, or other ?? abnormalities. ? MM/MM tomosynthesis screening BI ?? IMPRESSION: ?? No mammographic evidence of malignancy. ? ASSESSMENT: ? BI-RADS BI-RADS 2 - Benign Findings ? RECOMMENDATION: ?? Routine annual mammography screening. ? 1 year F/U ? This examination should not preclude the clinical evaluation of a ?? suspicious palpable abnormality. ? This patient's information was entered into a reminder system with a ?? target due date for their next mammogram. ? Electronically signed by: ??Misti Bazzi DO ??08/07/2024 10:01 AM EST ? Dictated By: ?Misti Bazzi DO ? Signed By: ?<Electronically signed by Misti Bazzi, DO in OV> ? 08/07/24 1001 ? DD/ 1500 ? TD/TT: 07/29/24 1510 ? Shank Paperer: ? Procedure Note Mauro, Image - 08/07/2024 [facility] [address] [place] [address] [place] [address] Mammography Report Signed Patient: Jamila Underwood#: [id number] 0 : 2Acct:[id number] Age/Sex: 64 / FADM Date: 07/29/24 Loc: HO.MAMMO Attending Dr: Abigail Muñoz MD Ordering Physician: Abigail Lassiter sults: 2Benign Findings Date of Service: 07/29/24Follow Up: 1 Year From Orig ina Mammogram Procedure(s): MM tomosynthesis screening BI Accession Number(s): [id number] cc: Abigail Lassiter MD EXAMINATION: MM SCREENING DIGITAL BREAST TOMOSYNTHESIS, BILATERAL CLINICAL INFORMATION: Screening. Asymptomatic. COMPARISON: Mammography: Comparison is made with available priors TECHNIQUE: Digital breast mammography with tomosynthesis is performed in both the craniocaudal and mediolateral oblique views along with computer-aided detection (CAD). FINDINGS: There are scattered areas of fibroglandular density (ACR BI-RADS breast composition Category b). Left marker clip. There are no significant masses, abnormal calcifications, or other abnormalities. MM/MM tomosynthesis screening BI IMPRESSION: No mammographic evidence of malignancy. ASSESSMENT: BI-RADS BI-RADS 2 - Benign Findings RECOMMENDATION: Routine annual mammography screening. 1 year F/U This examination should not preclude the clinical evaluation of a suspicious palpable abnormality. This patient's information was entered into a reminder system with a target due date for their next mammogram. Electronically signed by: Misti Bazzi DO 08/07/2024 10:01 AM EST Dictated By: Misti Bazzi DO Signed By: <Electronically signed by Misti Bazzi DO in OV> 08/07/24 1001 DD/ 1500 TD/TT: 07/29/24 1510 Shank Paperer: us Abigail Muñoz MD IMG BI PROCEDURES Final Result * Hepatitis C Antibody with Reflex to HCV, RNA, Quantitative, Real-Time PCR (04/21/2024 8:53 AM EDT) Hepatitis C Antibody Nonreactive Nonreactive [facility] Comment:Antibodies to HCV no t detected; does not exclude early acuteHCV infection. Blood Venous blood specimen / Unknown 04/21/2024 8:53 AM EDT 04/21/2024 11:14 AM EDT Abigail Muñoz MD LAB BLOOD ORDERAB LES Final Result [facility] [address] [place] [phone] [phone] * HIV-1/2 Antigen and Antibodies, Fourth Generation, with Reflexes (04/21/2024 8:53 AM EDT) HIV AB/AG Nonreactive Nonreactive [facility] Comment:HIV-1 p24 Ag and/or HIV-1/HIV-2 Ab not detected.A test result that is nonreactive does not exclude thepossibility of exposure to or infection with HIV-1 and/orHIV-2. Nonreactive results in this assay for individualswith prior exposure to HIV-1 and/or HIV-2 may be due toantigen and antibody levels that are below the limit ofdetection of this assay.The [facility] HIV Ag/Ab Combo assay result andsupplemental assay results should be interpreted inconjunction with the patient's clinical presentation,history and other laboratory results. If the results areinconsistent with clinical evidence, additional testing issuggested to confirm the result. Blood Venous blood specimen / Unknown 04/21/2024 8:53 AM EDT 04/21/2024 11:14 AM EDT us Abigail Muñoz MD LAB BLOOD ORDERAB LES Final Result Performing Organization Address [facility]/ZIP Co de Phone Number [facility] [address] [place] [address] [phone] * Hm Colonoscopy (04/13/2024 8:39 AM EDT) us Historical Provider HEALTH MAINTENANCE Final Result * HPV mRNA E6/E7 w/Reflex to HPV Genotypes 16, 18/45 (05/15/2023 12:00 AM EDT) HPV nRNA E6/E7 Not Detected Not Detected [facility] Comment:Methodology: Transcr iption-Mediated AmplificationThis assay detects E6/E7 viral messenger RNA (mRNA) from 14high-risk HPV types (16,18,31,33,35,39,45,51,52,56,58,59,66,68).Cervical sources are required for HPV testing.If a vaginal source from a patient who has had atotal hysterectomy with removal of cervix wassubmitted, please contact the testing laboratoryfor alternative testing options.For additional information, please refer tohttp://education.Tradegecko/faq/DJA751a3(This link if provided for information/educational purposes only.)THIS TEST WAS PERFORMED AT:[facility] [place] [id number] MCCABE MD HPV mRNA E6/E7 [facility] HPV 16 [facility] HPV 18/45 RNA [facility] 05/15/2023 05/17/2023 9:0 0 AM EDT Antoni Salazar [facility] CYTOLOGY ORDERABLES F inal Result [facility] [address] [place] [address] [phone] * Pap Smear (05/15/2023) 05/15/2023 05/17/2023 9:0 0 AM EDT Narrative [facility] - 06/05/2023 2:31 PM EDT ----- ------- Name: Cesia Underwood ?Age/Sex: 63/F ? : 1960 Unit#: [id number] ?? Attend Dr: ANTONI SALAZAR CNM ?Re05/16/23 ?Status: DEP REF ? Location: [facility] ? Disch: ? ----- ------- SPEC : [id number] ?RECD: 05/17/23 ? STATUS: ??SOUT ? REQ NUM: [id number] ? YVES: 05/15/23- ? SUBM DR: ANTONI SALAZAR CNM ? ENTERED: ??05/17/23 ?SP TYPE: Pap Smr ?OTHR DR: ? ORDERED: ??Pap Smear, PAP path review ? Interpretation ?? General Category: ?? Epithelial cell abnormality. ?? Adequacy: ?No endocervical cells identified. ?? Interpretation: ?? Atypical squamous cells of undetermined significance. ? HPV mRNA E6/E7: ?Not Detected ? This assay detects E6/E7 viral messenger RNA (mRNA) from 14 high-risk HPV types (16, 18, ?? 31, 33, 35, 39, 45, 51, 52, 56, 58, 59, 66, 68) ? HPV testing performed by [employer], [place], [place]. ??See reference laboratory ?? portion of the EMR for entire report. ?Clinical Information LMP: S/P Hysterectomy Previous PAP test:Unknown date/findings ? Material Received ?? ThinPrep-Vaginal/Cervical ----- ------- Signed (signature on file) Sim Tao MD 06/05/23 [id number] ? ----- ------- ? END OF REPORT ? us Antoni COLLINS LAB CYTOLOGY ORDERABLES F inal Result [facility] [address] [place] [phone] from Last 3 Months or Most Recently Relevant to Health Maintenance Insurance [facility] C3 Care Teams Family And Divorce Legal Assistant Relationship Specialty Start Date End Date Abigail Lassiter MD [address] [place] [phone] PCP - General Internal Medicine 02/08/23
--- OUTSIDE RECORDS SUMMARY | 2024-12-01 11:19 | XMS_ITS | Encounter Summary ---
Author Organization [employer] [facility] Address [address] [facility] 7t [place] [address] Care Team Providers Care Commercial Sales Director Name Role Phone Ana Avila Primary Care Provider [phone] Abigail Lassiter MD Primary Care Pro vider Encounter Details Date Type Department Care Team (Latest Contact Info) Description 06/19/2021 Abstract [facility] CONVERSIONS Dental, Provider, DDS Social History Tobacco Use Types Packs/Day Years Used Date Smoking Tobacco: Never Assessed Comments Unknown Sex and Gender Information Value Date Recorded [...] Description 01/08/2025 10:30 AM EDT Office Visit [facility] OPTOMETRY [address] [place] [address] Neyda Mcclain, OD [address] [place] [address] documented as of this encounter Visit Diagnoses Not on filedocumented in this encounter Care Teams Commercial Sales Director Relationship Specialty Start Date End Date Ana Avila ANP [address] [place] [address] PCP - General Family Medicine 07/05/22 02/07/23 Abigail Lassiter MD [address] [place] [phone] PCP - General Internal Medicine 02/08/23 documented as of this encounter
--- OUTSIDE RECORDS SUMMARY | 2024-12-01 11:19 | XMS_ITS | Encounter Summary ---
Author Organization [facility] [facility] Address [address] [facility] 7t [place] [address] Care Team Providers Care Bus And Trolley Dispatcher Name Role Phone Ana Avila Primary Care Provider [phone] Abigail Lassiter MD Primary Care Pro vider Encounter Details Date Type Department Care Team (Late Contact Info) Description 08/18/2022 Abstract [facility] [address] [place] [address] ProviderDianan MD Social History Tobacco Use Types Packs/Day Years [...] Encounters Date Type Department Care Team (Late Contact Info) Description 01/08/2025 10:30 AM EDT Office Visit [facility] OPTOMETRY [address] [place] [address] Johny, Neyda, OD [address] [place] [address] documented as of this encounter Visit Diagnoses Not on filedocumented in this encounter Care Teams Bus And Trolley Dispatcher Relationship Specialty Start Date End Date Ana Avila ANP [address] [place] [address] PCP - General Family Medicine 07/05/22 02/07/23 Abigail Lassiter MD [address] [place] [phone] PCP - General Internal Medicine 02/08/23 documented as of this encounter
--- OUTSIDE RECORDS SUMMARY | 2024-12-01 11:19 | XMS_ITS | Clinical Summary ---
Author Organization [employer] [facility] it[facility] Address [address] [place] [address] Care Team Providers Care Pick Up Name Role Phone Unavailable Primary Care Provider Unavailabl e Social History Tobacco Use Types Packs/Day Years Used Date Smoking Tobacco: Never Assessed Comments Unknown Sex and Gender Information Value Date Recorded Sex Assigned at Not on file Legal Sex Female 11:35 PM EST Gender Identity Not on file Sexual Orientation Not on file Plan of Treatment Health Maintenance Due Date Last Done Comments Breast Cancer Screening 1960 DTaP,Tdap,and Td Vaccines (1 - Tdap) 1981 Cervical Cancer Screening: P ap Smear 1983 Pneumococcal Vaccine: 50+ Ye ars (1 of 1 - PCV) 2012 Zoster Vaccines (1 of 2) 2012 Colorectal Cancer Screening: Colonoscopy 09/02/2022 Depression Screening 09/02/2022 HIV Screening 09/02/2022 Hepatitis C Screening 09/02/2022 Social Influencers of Health Screening 09/02/2022 COVID-19 Vaccine ( - 2023-2 5 season) 2024 Influenza Vaccine (#1) 2024 RSV Immunization Patients 60 + Years Old (1 - 1-dose 75+ series) 2037 HIB Vaccines Aged Out No longer eligi ble based on patient's age to complete this topic HPV Vaccines Aged Out No longer eligi ble based on patient's age to complete this topic Hepatitis A Vaccines Aged Out No long er eligible based on patient's age to complete this topic Hepatitis B Vaccines Aged Out No long er eligible based on patient's age to complete this topic IPV Vaccines Aged Out No longer eligi ble based on patient's age to complete this topic MMR Vaccines Aged Out No longer eligi ble based on patient's age to complete this topic Meningococcal ACWY Vaccine Aged Out N o longer eligible based on patient's age to complete this topic Meningococcal B Vacine Aged Out No lo nger eligible based on patient's age to complete this topic Pneumococcal Vaccine: Pediat rics (0 to 5 Years) and At-Risk Patients (6 to 64 Years) Aged Out No longer eligible b ased on patient's age to complete this topic RSV Immunization Patients Un anny 20 months Aged Out No longer eligible b ased on patient's age to complete this topic Varicella Vaccines Aged Out No longer eligible based on patient's age to complete this topic
--- OUTSIDE RECORDS SUMMARY | 2024-12-01 11:19 | XMS_ITS | Encounter Summary ---
Author Organization [employer] [facility] Address [address] [facility] 7t [place] [address] Care Team Providers Care Catering Associate Name Role Phone Ana Avila Primary Care Provider [phone] Abigail Lassiter MD Primary Care Pro vider Encounter Details Date Type Department Care Team (Latest Contact Info) Description 01/08/2019 Abstract [facility] CONVERSION[facility] Dental, Provider, DDS Social History Tobacco [...] Description 01/08/2025 10:30 AM EDT Office Visit [facility] OPTOMETRY [address] [place] [address] Neyda Mcclain, OD [address] [place] [address] documented as of this encounter Visit Diagnoses Not on filedocumented in this encounter Care Teams Catering Associate Relationship Specialty Start Date End Date Ana Avila ANP [address] [place] [address] PCP - General Family Medicine 07/05/22 02/07/23 Abigail Lassiter MD [address] [place] [phone] PCP - General Internal Medicine 02/08/23 documented as of this encounter
--- OUTSIDE RECORDS SUMMARY | 2024-12-01 11:19 | XMS_ITS | Encounter Summary ---
Author Organization [employer] Address [address] [facility] [facility] [address] 7t [place] [address] Care Team Providers Care Typesetting Supervisor Name Role Phone Abigail Lassiter MD Primary Care Pro vider Encounter Details Date Type Department Care Team (Late st Contact Info) Description 09/17/2024 Orders Only [facility] [address] [place] [address] Provider, MD Dianna Social History Tobacco Use Types Packs/Day Years [...] is your housing situation today? I have christineyobany murguia 07/18/[address] you [...] 10:30 AM EDT Office Visit [facility] OPTOMETRY [address] [place], [place] [phone] Neyda Mcclain, OD [address] [place] [address] documented as of this encounter Procedures Procedure Name Priority Date/Time Associated Diagnosis Comments HM COLONOSCOPY Routine 04/13/2024 8:39 AM EDT documented in this encounter Results * Hm Colonoscopy (04/13/2024 8:39 AM EDT) us Historical Provider HEALTH MAINTENANCE Final Result documented in this encounter Visit Diagnoses Not on filedocumented in this encounter Additional Health Concerns Assessment Noted Time PHQ-9 Depression Total Score: 2 03/19/20 24 9:02 AM EDT documented as of this encounter Care Teams Typesetting Supervisor Relationship Specialty Start Date End Date Abigail Lassiter MD [address] [place] [address] PCP - General Internal Medicine 02/08/23 documented as of this encounter
--- OUTSIDE RECORDS SUMMARY | 2024-12-01 11:19 | XMS_ITS | Encounter Summary ---
Author Organization [email or web address] Address [address] [facility] 7t [place] [address] Care Team Providers Care Sales Commissions Analyst Name Role Phone Ana Avila Primary Care Provider [phone] Abigail Lassiter MD Primary Care Pro vider Encounter Details Date Type Department Care Team (Late st Contact Info) Description 10/12/2022 Orders Only [facility] [address] [place] [address] Mahsa Rice LPN Social History Tobacco Use Types Packs/Day Years Used Date Smoking Tobacco: Never Smokeless Tobacco: Never Alcohol Use Standard Drinks/Week Comments Never 0 (1 standard drink = 0.6 oz pur e alcohol) Comments Unknown Sex and Gender Information Value [...] Description 01/08/2025 10:30 AM EDT Office Visit [facility] OPTOMETRY [address] [place] [address] Neyda Mcclain, OD [address] [place] [address] documented as of this encounter Visit Diagnoses Not on filedocumented in this encounter Care Teams Sales Commissions Analyst Relationship Specialty Start Date End Date Ana Avila ANP [address] [place] [address] PCP - General Family Medicine 07/05/22 02/07/23 Abigail Lassiter MD [address] [place] [address] PCP - General Internal Medicine 02/08/23 documented as of this encounter
[2024-12-01] MEDS: gadobutroL 7.5 ML VIAL IVPUSH (11:24)
== END 2024-12-01 09:49 | disposition home or self-care (01) ==
LOC: HO.MRI 09:48
PROVIDERS: PCP Student in an Organized Health Care Education/Training Program; Visit Provider Internal Medicine
DX: R22.32 Localized swelling, mass and lump, left upper limb (principal)
CPT/HCPCS: 73220; A9585

== ENCOUNTER → 2024-12-01 10:05 | Outpatient (BNV) | payer MEDICAID, SELFPAY | PROVIDERS: PCP Student in an Organized Health Care Education/Training Program; Visit Provider Radiology Diagnostic Radiology | DX: M65.842 Other synovitis and tenosynovitis, left hand (principal) | CPT/HCPCS: 73220 ==

== ENCOUNTER 2025-01-13 16:36 | Emergency (ER) | payer OTHER, MEDICAID, SELFPAY ==
--- NOTE | ~2025-01-13 | XR_ITS ---
CLINICAL HISTORY: pain --- Additional Notes or Special Instructions: collared 6:57 1 view chest x-ray Comparison: None Findings: The lungs are clear. Heart size is normal. No acute fracture. IMPRESSION: 1. No acute findings. This document has been electronically signed by: Latisha Nguyen MD on 01/13/2025 20:03:09
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
[2025-01-13 16:45] VITALS: BP 146/83; PULSE 87; RESP 20; TEMP 36.6; O2SAT 95; BMI 27.2
--- OUTSIDE RECORDS SUMMARY | 2025-01-13 18:26 | XMS_ITS | Encounter Summary ---
Author Organization [employer] Address [address] [facility] [place] [address] Care Team Providers Care Coater Carbon Paper Name Role Phone Abigail Lassiter MD Primary Care Pro vider Encounter Details Date Type Department Care Team (Late st Contact Info) Description 09/17/2024 Orders Only [facility] [address] [place] [address] Provider, MD Dianna Social History Tobacco Use [...] Care Team (Late st Contact Info) Description 03/24/2025 10:45 AM EDT Office Visit [facility] MED[facility]INE [address] [place] [address] [phone] Abigail Lassiter MD [address] [place] [phone] documented as of this encounter Procedures Procedure [...] documented as of this encounter Care Teams Coater Carbon Paper Relationship Specialty Start Date End Date Abigail Lassiter MD [address] [place] [phone] PCP - General Internal Medicine 02/08/23 documented as of this encounter
--- OUTSIDE RECORDS SUMMARY | 2025-01-13 18:26 | XMS_ITS | Clinical Summary ---
Author Organization [employer] Address [address] [facility] 7t [place] [address] Care Team Providers Care Contract Preparer Name Role Phone Abigail Lassiter MD Primary Care Pro vider Allergies No known active allergies Medications TRUEplus Lancets 33G misc TEST BLOOD SUGAR DAILY DIRECTED 3 Active Blood Glucose Monitoring Suppl (Laimoon.comStyle Eupora Lite) w/Device kit Use to test blood sugar bid dx dm 1 kit 3 Active FREESTYLE LITE test strip TEST BLOOD SUGAR DAILY DIRECTED 50 strip 1 3 Active polyvinyl alcohol (Liquifilm Tears) 1.4 % ophthalmic solution PLACE 1 DROP IN EACH EYE THREE OR FOUR TIMES DAILY 15 mL 11 4 Active omeprazole (PriLOSEC) [address] capsule Take 1 capsule (40 mg) by mouth Once per day. 90 capsule 4 Active lidocaine (Lidoderm) 5 % patch Apply 1 patch topically Once per day. Remove & discard patch within 12 hours or as directed by . 30 patch 1 4 Active albuterol (Ventolin HFA) 108 (90 Base) MCG/ACT inhalerIndication s:Mild intermittent asthma without complication Inhale 2 puffs every 4 (four) hours if needed for wheezing. 18 g 2 4 Active acetaminophen (Tylenol 8 Hour) 650 MG ER tabletIndications :Pain TAKE 2 TABLETS BY MOUTH EVERY 8 HOURS NEEDED SWALLOW WHOLE WITH WATER WATER, DO NOT BREAK, CRUSH, DISSOLVE OR CHEW 60 tablet 1 4 Active omega-3 (Fish Oil) 1000 MG capsule TAKE 1 CAPSULE BY MOUTH EVERY DAY 90 capsule 1 5 Active Januvia 100 MG tablet TAKE 1 TABLET BY MOUTH EVERY DAY 30 tablet 5 5 Active atorvastatin (Lipitor) 20 MG tablet TAKE 1 TABLET BY MOUTH EVERY DAY IN THE MORNING 90 tablet 5 Active Active Problems Problem Noted Date Diagnosed Date [...] diet and exercise,discussed healthy life style -discussed barn boss referral -refusing Assessment & Plan (04/16/2023 2:04 PM EDT): Advised pt to improve diet and exercise,discussed healthy life style -discussed barn boss referral -refusing Depression 04/16/2023 Assessment & Plan (05/18/2023 2:18 PM EDT): Mild depression,states to be associated that her son is in correction PHQ9: 4 ,denies SI -refuse BH referral -states followed in the past and was not helpful x her -advised to improve activity ,yoga,meditation -px melatonin prn x insomnia that reports to be sporadic -will continue to monitor Assessment & Plan (04/16/2023 2:14 PM EDT): Mild depression,states to be associated that her son is in correction PHQ9: 4 ,denies SI -refuse BH referral [...] -opthalmo last 01/2023 - next apt 06/17/2023. -Mate Relief apt: 05/2023. Assessment & Plan (04/16/2023 2:11 [...] Cbgs -opthalmo last 01/2023 -Referred today to conveyor belt installer Gastroesophageal reflux disease without esophagi tis 09/20/2015 [...] worsening vitiligo -pt would like to see rand tacker-referred already. Apt for 05/2023 Assessment & Plan (04/16/2023 2:04 PM EDT): Reports worsening vitiligo -pt would like to see rand tacker-referred today Resolved Problems Problem Noted Date Diagnosed [...] Encounters Date Type Department Care Team Description 01/08/2025 10:30 AM EDT Office Visit [facility] [address] [place] [address] Johny, Neyda, OD Diabetes type 2, no ocular involvement (CMS/HCC) (Primary Dx); Macular RPE mottling; Pars plana primary cyst, right; Dry eye syndrome of both eyes; Presbyopia of both eyes 01/08/2025 Travel 12/24/2024 Telephone [facility] [address] [place] [address] Abigail Lassiter MD Nurse Triage 12/14/2024 Telephone [facility] [address] [place] [address] Abigail Lassiter MD February12/11/2024 Refill [facility] [address] [place] [address] Donny Parsons MD 12/11/2024 Population Health Risk Score [facility] (C[facility]) Department [address] [phone] Provider, Population Health Generic 12/08/2024 Orders Only [facility] [address] [place] [address] Abigail Ferraro MD Tenosynovitis of left hand (Primary Dx); Cyst of bone of left hand 12/06/2024 Refill [facility] [address] [place] [address] Abigail Lassiter MD 11/20/2024 Orders Only [facility] MED & PEDS [address] [place], [place] [phone] Isaak Varghese MD Mass of left hand (Primary Dx) 11/20/2024 Telephone [facility] [address] [place] [address] Farzana Zavala, RN Results 11/05/2024 Refill [facility] [address] [place] [address] Abigail Lassiter MD from Last 3 Months [...] Description 03/24/2025 10:45 AM EDT Office Visit [facility] [address] [place] [address] Abigail Lassiter MD [address] [place] [address] Health Maintenance Due Date Last Done Comments [...] 08/26/2025 08/26/2024, 03/31, 09/10/2023, Additional history exists Cervical Cancer Screening 05/15/2026 HPV/Cotest 05/15/2026 05/15/2023 Pap Smear 05/15/2026 05/15/2023 Eye Exam 01/08/2027 01/08/2025, 12/29, 01/08/2025, Additional history exists Colonoscopy 04/13/2029 04/13/2024 Colorectal Cancer Screening 04/13/2029 [...] Procedure Name Priority Date/Time Associated Diagnosis Comments OCT, RETINA - OU - BOTH EYES Routine 01/08/2025 11:49 AM EDT Macular RPE mottling MR HAND W AND WO CONTRAST LEFT Routine 12/02/2024 6:47 PM EST Mass of left hand ALBUMIN, RANDOM URINE W/CREATININE Routine 08/26/2024 10:45 [...] Recently Relevant to Health Maintenance Results * MR Hand w/ and w/o Contrast Left (12/02/2024 6:47 PM EST) Anatomical Region Laterality Modality Upper Extremities, Hand Left Magnetic Resonance 12/02/2024 6:47 PM EST Narrative 12/02/2024 6:48 PM EST ? [facility] ?[address] ?[place] [address] ? Magnetic Resonance Report ? Signed ? Patient: Kj,Alba ?MR#: [id number] ?? 0 ? : 1960 ?Acct:[id number] ? Age/Sex: 64 / F ?ADM Date: 03/04/25 ? Loc: HO.MRI ? Attending Dr: Isaak Lang MD ? Ordering Physician: Isaak Varghese MD ?? Date of Service: 12/01/24 ?? Procedure(s): MR hand LT wo/w con ?? Accession Number(s): [id number] ? cc: Isaak Varghese MD; Abigail Lassiter MD ? CLINICAL HISTORY: 0.6 cm solid mass with peripheral vascularity on u s MRI suggested ? MR of the left hand before and after intravenous contrast. ? No comparison. ? Findings: ?? No suspicious bony lesions are seen. ?? There is a small cyst of the 3rd metacarpal head measuring 4 mm likely ?? incidental. ?? No soft tissue masses are seen. ?? There is probable early degenerative change of the 1st carpometacarpal ?? articulation. ?? There is mild tenosynovitis of the flexor tendons of the ring finger and ?? extensor carpi ulnaris. ?? No tendon disruption is identified. ? Impression: ?? Superficial to the abductor pollicis brevis there is a focally dilated ?? superficial vein measuring 10 x 4 mm. No soft tissue masses are seen. ?? Small cyst in the 3rd metacarpal head. ?? Mild tenosynovitis of the flexor tendons of the ring finger and extensor ?? carpi ulnaris. ? This document has been electronically signed by: Med Jenkins MD on ?? 12/02/2024 18:47:30 ? Dictated By: ?Triston Hargrove MD ? Signed By: ?<Electronically signed by Triston Hargrove MD in OV> ?12/02/241847 ? DD/ 46 ? TD/TT: 12/02/241846 ? Shed Hand: ? Procedure Note Jayy Wade - 12/02/[address] [address] Magnetic Resonance Report Signed Patient: Jamila Underwood#: [id number] 0 : 2Acct:[id number] Age/Sex: 64 / FADM Date: 12/01/24 Loc: HO.MRI Attending Dr: Isaak Lang MD Ordering Physician: Isaak Varghese MD Date of Service: 12/01/24 Procedure(s): MR hand LT wo/w con Accession Number(s): [id number] cc: Isaak Varghese MD; Abigail Lassiter MD CLINICAL HISTORY: 0.6 cm solid mass with peripheral vascularity on u s MRIsuggested MR of the left hand before and after intravenous contrast. No comparison. Findings: No suspicious bony lesions are seen. There is a small cyst of the 3rd metacarpal head measuring 4 mm likely incidental. No soft tissue masses are seen. There is probable early degenerative change of the 1st carpometacarpal articulation. There is mild tenosynovitis of the flexor tendons of the ring finger and extensor carpi ulnaris. No tendon disruption is identified. Impression: Superficial to the abductor pollicis brevis there is a focally dilated superficial vein measuring 10 x 4 mm. No soft tissue masses are seen. Small cyst in the 3rd metacarpal head. Mild tenosynovitis of the flexor tendons of the ring finger and extensor carpi ulnaris. This document has been electronically signed by: Med Jenkins MD on 12/02/2024 18:47:30 Dictated By: Triston Hargrove MD Signed By: <Electronically signed by Triston Hargrove MD in OV> 12/02/241847 DD/ 46 TD/TT: 12/02/241846 Shed Hand: Isaak Lang MD IMG MRI PROCEDURES Edited Result - Final * Albumin, Random Urine W/Creatinine (08/26/2024 10:45 AM EST) Creatinine, Urine 124.90 mg/dL [facility] Microalbumin Urine 10.0 mg/L H [facility] Microalbum Creatinine Ratio Ur 8.0 <30 ug/mg cr [facility] Comment:Albumin/Creatinine R atio Reference Ranges: Normal: < 30 ug/mg creatinine Microalbuminuria: 30 - 300 ug/mg creatinineClinical Albuminuria: > 300 ug/mg creatinine Urine (Urine, Random) 08/26/2024 10:45 AM EST 08/26/2024 11:10 AM EST Abigail Muñoz MD LAB URINE ORDERAB LES Final Result Performing Organization Address [facility] Co de Phone Number [facility] [address] [place] [phone] * (ABNORMAL) Hemoglobin A1c (08/26/2024 10:45 AM EST) Hemoglobin A1c 6.7(H) <6.0 % [facility] Comment:Hemoglobin A1C Refer ence Range Adults: 4.8 - 6.0 % Non diabetic: < 6.0 % Goal: < 7.0 %Additional Action Suggested: > 8.0 %Note: Hemoglobin A1c results are invalid for patients with abnormal amounts of HbF. Blood transfusions may impact the HbA1c concentration in the patient sample. Estimated Average Glucose 146 mg/dL [facility] Comment:eAG = Estimated ave rage glucose which is %A1C expressed asaverage glucose, using the formula of the V4F-ZmnsniiYxvgceg Glucose study (ADAG), Diabetes Care, Vol.31,#8,Apr. 2007 Blood Venous blood specimen / Unknown 08/26/2024 10:45 AM EST 08/26/2024 11:12 AM EST us Abigail Muñoz MD LAB BLOOD ORDERAB LES Final Result Performing Organization Address City/[facility]/ZIP Co de Phone Number [facility] [address] [place] [phone] * Lipid Panel, Standard (08/26/2024 10:45 AM EST) Triglycerides 144 <150 mg/dL [facility] Comment:Desirable Triglyceri de: less than 150 mg/dLBorderline High Triglyceride 150-199 mg/dLHigh Triglyceride: 200-499 mg/dLVery High Triglyceride: greater than or equal to 5OO mg/dL Cholesterol 149 <200 mg/dL [facility] Comment:Desirable Cholestero l: less than 200 mg/dLBorderline High Cholesterol: 200-239 mg/dLHigh Cholesterol: greater than 239 mg/dL LDL Cholesterol Calculated 72 <100 mg/dL [facility] Comment:Desirable LDL: less than 100 mg/dLNear Optimal/Above Optimal LDL: 110- 129 mg/dLBorderline High LDL: 130-159 mg/dLHigh LDL: 160-189 mg/dLVery High LDL: greater than or equal to 190 mg/dL HDL Cholesterol 49 >40 mg/dL [facility] Comment:Desirable HDL: great er than 40 mg/dL Note: This HDL assay may give artificially low results in patients with liver disease. Blood Venous blood specimen / Unknown 08/26/2024 10:45 AM EST 08/26/2024 11:17 AM EST Abigail Muñoz MD LAB BLOOD ORDERAB LES Final Result Performing Organization Address City/State/[facility] Co de Phone Number [facility] [address] [place] [phone] [phone] * BI Mammogram Screening Tomosynthesis Bilateral (07/29/2024 3:00 PM EDT) Anatomical Region Laterality Modality Breast Bilateral Mammography 07/29/2024 3:00 PM EDT Narrative 08/07/2024 10:04 AM EST ? [facility] ? [address] ?[place] [address] ? Mammography Report ? Signed ? Patient: Kj,Alba ?MR#: [id number] ?? 0 ? : 1960 ?Acct:[id number] ? Age/Sex: 64 / F ?ADM Date: 10/30/24 ? Loc: HO.MAMMO ? Attending Dr: Abigail Muñoz MD ? Ordering Physician: Abigail Lassiter MD ?Re ?? sults: 2Benign Findings ? Date of Service: 07/29/24 ?Follow Up: 1 Year From Orig ?? inal Mammogram ? Procedure(s): MM tomosynthesis screening BI ?? Accession Number(s): [id number] ? cc: Abigail Lassiter MD ? EXAMINATION: [...] ??Misti Bazzi DO ??08/07/2024 10:01 AM EST ?? RP ? Dictated By: ?Misti Bazzi DO ? Signed By: ?<Electronically signed by Misti Bazzi, DO in OV> ? 08/07/24 1001 ? DD/ 1500 ? TD/TT: 07/29/24 1510 ? Shed Hand: ? Procedure Note Donotuseinterpreter, Image - 08/07/2024 [facility] [address] [place] [address] [place] [address] Mammography Report Signed Patient: Jamila Underwood#: [id number] 0 : 2Acct:[id number] Age/Sex: 64 / FADM Date: 07/29/24 Loc: HO.MAMMO Attending Dr: Abigail Muñoz MD Ordering Physician: Abigail Lassiter sults: 2Benign Findings Date of Service: 07/29/24Follow Up: 1 Year From Orig inal Mammogram Procedure(s): MM tomosynthesis screening BI Accession Number(s): [id number] cc: Abigail Lassiter MD EXAMINATION: MM SCREENING [...] 08/07/24 1001 DD/ 1500 TD/TT: 07/29/24 1510 Shed Hand: Abigail Muñoz MD IMG BI PROCEDURES Final Result * Hepatitis C Antibody with Reflex to HCV, RNA, Quantitative, Real-Time PCR (04/21/2024 8:53 AM EDT) Hepatitis C Antibody Nonreactive Nonreactive [facility] Comment:Antibodies to HCV no t detected; does not exclude early acuteHCV infection. Blood Venous blood specimen / Unknown 04/21/2024 8:53 AM EDT 04/21/2024 11:14 AM EDT Abigail Muñoz MD LAB BLOOD ORDERAB LES Final Result Performing Organization Address [facility]/ZIP Co de Phone Number [facility] [address] [place] [phone] * HIV-1/2 Antigen and Antibodies, Fourth Generation, with Reflexes (04/21/2024 8:53 AM EDT) Pathologist [facility] HIV AB/AG Nonreactive Nonreactive [facility] Comment:HIV-1 p24 Ag and/or HIV-1/HIV-2 Ab not detected.A test result that is nonreactive does not exclude thepossibility of exposure to or infection with HIV-1 and/orHIV-2. Nonreactive results in this assay for individualswith prior exposure to HIV-1 and/or HIV-2 may be due toantigen and antibody levels that are below the limit ofdetection of this assay.The [employer] HIV Ag/Ab Combo assay result andsupplemental assay results should be interpreted inconjunction with the patient's clinical presentation,history and other laboratory results. If the results areinconsistent with clinical evidence, additional testing issuggested to confirm the result. Blood Venous blood specimen / Unknown 04/21/2024 8:53 AM EDT 04/21/2024 11:14 AM EDT us Abigail Muñoz MD LAB BLOOD ORDERAB LES Final Result Performing Organization Address City/[facility]/ZIP Co de Phone Number [facility] [address] [place] [phone] * Hm Colonoscopy (04/13/2024 8:39 AM EDT) Historical Provider HEALTH MAINTENANCE Final Result * HPV mRNA E6/E7 w/Reflex to HPV Genotypes 16, 18/45 (05/15/2023 12:00 AM EDT) HPV nRNA E6/E7 Not Detected Not Detected [facility] Comment:Methodology: Transcr iption-Mediated AmplificationThis assay detects E6/E7 viral messenger RNA (mRNA) from 14high-risk HPV types (16,18,31,33,35,39,45,51,52,56,58,59,66,68).Cervical sources are required for HPV testing.If a vaginal source from a patient who has had atotal hysterectomy with removal of cervix wassubmitted, please contact the testing laboratoryfor alternative testing options.For additional information, please refer tohttp://education.Inventalator/faq/UJG305l2(This link if provided for information/educational purposes only.)THIS TEST WAS PERFORMED AT:[facility] [place] [phone] MCCABE MD HPV mRNA E6/E7 TNP [facility] HPV 16 RNA [facility] HPV 18/45 RNA [facility] 05/15/2023 05/17/2023 9:0 0 AM EDT Antoni COLLINS LAB CYTOLOGY ORDERABLES F inal Result [facility] [address] [place] [phone] * Pap Smear (05/15/2023) 05/15/2023 05/17/2023 9:0 0 AM EDT Narrative [facility] - 06/05/2023 2:31 PM EDT ----- ------- Name: Cesia Underwood ?Age/Sex: 63/F ? : 1960 Unit#: [id number] ?? Attend Dr: ANTONI SALAZAR CNM ?Re05/16/23 ?Status: DEP REF ? Location: HO.LUCIANO ? Disch: ? ----- ------- SPEC : [id number] ?RECD: 05/17/23 ? STATUS: ??SOUT ? REQ NUM: [id number] ? YVES: 05/15/23- ? SUBM DR: ANTONI SALAZAR CNM ? ENTERED: ??05/17/23 ?SP TYPE: Pap Smr ?OTHR : ? ORDERED: ??Pap Smear, PAP path review [...] 66, 68) ? HPV testing performed by [employer], [place], [place]. ??See reference laboratory ?? portion of the EMR for entire report. ?Clinical Information LMP: S/P Hysterectomy Previous PAP test:Unknown date/findings ? Material Received ?? ThinPrep-Vaginal/Cervical ----- ------- Signed (signature on file) Sim Tao MD 06/05/23 9538 ? ----- ------- ? END OF REPORT ? us Antoni Salazar CNM LAB CYTOLOGY ORDERABLES F inal Result [facility] [address] [place] [address] [phone] from Last 3 Months or Most Recently Relevant to Health Maintenance Insurance [employer] C3 Care Teams Contract Preparer Relationship Specialty Start Date End Date Abigail Lassiter MD [address] [place] [phone] PCP - General Internal Medicine 02/08/23
--- OUTSIDE RECORDS SUMMARY | 2025-01-13 18:26 | XMS_ITS | Encounter Summary ---
Author Organization [employer] [facility] Address [address] [place] [address] [address]t [place] [address] Care Team Providers Care Shell Trim Tool Setter Name Role Phone Ana Avila Primary Care Provider [phone] Abigail Lassiter MD Primary Care Pro vider Encounter Details Date Type Department Care Team (Late st Contact Info) Description 08/18/2022 Abstract [facility] [address] [place] [phone] ProviderDianna MD Social History Tobacco Use Types Packs/Day [...] Description 03/24/2025 10:45 AM EDT Office Visit [facility] [address] [place] [phone] Abigail Lassiter MD [address] [place] [address] [phone] documented as of this encounter Visit Diagnoses Not on filedocumented in this encounter Care Teams Shell Trim Tool Setter Relationship Specialty Start Date End Date Ana Avila ANP [address] [place] [address] PCP - General Family Medicine 07/05/22 02/07/23 Abigail Lassiter MD [address] [place] [phone] PCP - General Internal Medicine 02/08/23 documented as of this encounter
--- OUTSIDE RECORDS SUMMARY | 2025-01-13 18:26 | XMS_ITS | Encounter Summary ---
Author Organization [employer] Address [address] [place] [address] [address] [place] [address] Care Team Providers Care Gas Worker Name Role Phone Ana Avila Primary Care Provider [phone] Abigail Lassiter MD Primary Care Pro vider Encounter Details Date Type Department Care Team (Late st Contact Info) Description 10/12/2022 Orders Only [facility] CH[facility] MED & PEDS [address] [place], [place] [phone] Mahsa Rice LPN Social History Tobacco Use [...] Description 03/24/2025 10:45 AM EDT Office Visit [facility] MEDICINE [address] [place], [place] [phone] Abigail Lassiter MD [address] [place], [place] [phone] documented as of this encounter Visit Diagnoses Not on filedocumented in this encounter Care Teams Gas Worker Relationship Specialty Start Date End Date Ana Avila ANP [address] [place] [address] PCP - General Family Medicine 07/05/22 02/07/23 Abigail Lassiter MD [address] [place] [address] PCP - General Internal Medicine 02/08/23 documented as of this encounter
--- OUTSIDE RECORDS SUMMARY | 2025-01-13 18:26 | XMS_ITS | Clinical Summary ---
Author Organization [facility] Address [address] [place] [address] Phone Care Team Providers Care Wash Driller Helper Name Role Phone Unavailable Primary Care Provider Unavailabl e Social History Tobacco Use Types Packs/Day Years Used Date Smoking Tobacco: Never Assessed Comments Unknown Sex and Gender Information Value Date Recorded Sex Assigned at Not on file Legal Sex Female 11:35 PM EST Gender Identity Not on file Sexual Orientation Not on file Plan of Treatment Upcoming Encounters Date Type Department Care Team (Late st Contact Info) Description 01/15/2025 11:00 AM EDT Consult Orthopedic Surgery - [place] [address] [facility] [address] [place] [address] Sofiya Aviles MD 175 [facility] [address] [place] [address] Health Maintenance Due Date Last Done Comments [...] Influencers of Health Screening 09/02/2022 COVID-19 Vaccine (1 - 2023-2 5 season) 2024 Influenza Vaccine (Season Ended) 2025 RSV Immunization Adult Patie nts (1 - 1-dose 75+ series) 2037 HIB [...] age to complete this topic Meningococcal B Vaccine Aged Out No l onger eligible based on patient's age to complete [...] on patient's age to complete this topic Insurance MEDICAID - [place]
--- OUTSIDE RECORDS SUMMARY | 2025-01-13 18:26 | XMS_ITS | Encounter Summary ---
Author Organization [employer] Address [address] [facility] 7t [place] [address] Care Team Providers Care Training Representative Name Role Phone Abigail Lassiter MD Primary Care Pro vider Reason for Visit * Reason Comments Med Refill Encounter Details Date Type Department Care Team ([facility] st Contact Info) Description 07/19/2024 Refill [facility] [address] [place] [address] Abigail Lassiter MD [address] [place] [address] Pain Social History Tobacco Use Types Packs/Day [...] Description 03/24/2025 10:45 AM EDT Office Visit [facility] MED[facility] [address] [place] [phone] Abigail Lassiter MD [address] [place] [phone] documented as of this encounter Visit Diagnoses Diagnosis Pain Generalized pain documented in this encounter Additional Health Concerns Assessment Noted Time PHQ-9 Depression Total Score: 2 03/19/20 24 9:02 AM EDT documented as of this encounter Care Teams Training Representative Relationship Specialty Start Date End Date Abigail Lassiter MD [address] [place] [address] [phone] PCP - General Internal Medicine 02/08/23 documented as of this encounter
--- OUTSIDE RECORDS SUMMARY | 2025-01-13 18:26 | XMS_ITS | Encounter Summary ---
Author Organization [employer] Address [address] [facility] [address] [place] [address] Care Team Providers Care Senior Java Software Engineer Name Role Phone Abigail Lassiter MD Primary Care Pro vider Encounter Details Date Type Department Care Team (Latest Contact Info) Description 01/08/2025 Travel Social History Tobacco Use Types Packs/Day Years [...] 10:45 AM EDT Office Visit [facility] [address] [place] [address] Abigail Lassiter MD [address] [place] [address] documented as of this encounter Visit Diagnoses Not on filedocumented in this encounter Additional Health Concerns Assessment Noted Time PHQ-9 Depression Total Score: 2 03/19/20 24 9:02 AM EDT documented as of this encounter Care Teams Senior Java Software Engineer Relationship Specialty Start Date End Date Abigail Lassiter MD [address] [place] [address] PCP - General Internal Medicine 02/08/23 documented as of this encounter
--- OUTSIDE RECORDS SUMMARY | 2025-01-13 18:26 | XMS_ITS | Encounter Summary ---
Author Organization [facility] Address [address] [place] [address] 7 [place] [address] Care Team Providers Care Impregnation Operator Name Role Phone Ana Avila Primary Care Provider [phone] Abigail Lassiter MD Primary Care Pro vider Encounter Details Date Type Department Care Team (Latest Contact Info) Description 01/08/2019 Abstract [facility] Dental, Provider, DDS Social History Tobacco [...] Description 03/24/2025 10:45 AM EDT Office Visit [facility] [address] [place] [address] Abigail Lassiter MD [address] [place] [address] documented as of this encounter Visit Diagnoses Not on filedocumented in this encounter Care Teams Impregnation Operator Relationship Specialty Start Date End Date Ana Avila ANP [address] [place] [address] PCP - General Family Medicine 07/05/22 02/07/23 Abigail Lassiter MD [address] [place] [id number] PCP - General Internal Medicine 02/08/23 documented as of this encounter
--- OUTSIDE RECORDS SUMMARY | 2025-01-13 18:26 | XMS_ITS | Encounter Summary ---
Author Organization [employer] Address [address] [facility] [address] [place] [address] Care Team Providers Care Log Skidder Name Role Phone Abigail Lassiter MD Primary Care Pro vider Reason for Visit * Reason Comments Diabetic Eye Exam Encounter Details Date Type Department Care Team ([facility] st Contact Info) Description 01/08/2025 10:30 AM EDT Office Visit [facility] [address] [place] [address] Johny, Neyda, OD [address] [place] [address] Diabetes type 2, no ocular involvement (CMS/HCC) (Primary Dx); Macular RPE mottling; Pars plana primary cyst, right; Dry eye syndrome of both eyes; Presbyopia of both eyes Social History Tobacco Use Types Packs/Day Years [...] 10:45 AM EDT Office Visit [facility] MED[facility] [address] [place] [address] Abigail Lassiter MD [address] [place] [address] [phone] Pending Results Name Type Priority Associated Diagnoses Date /Time OCT, Retina - OU - Both Eyes Ophthalmology Routine Macular RPE mottling 01/08/2025 11:49 AM EDT documented as of this encounter Procedures Procedure Name Priority Date/Time Associated Diagnosis Comments OCT, RETINA - OU - BOTH EYES Routine 01/08/2025 11:49 AM EDT Macular RPE mottling documented in this encounter Visit Diagnoses Diagnosis Diabetes type 2, no ocular involvement ([facility])- Primary 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
--- OUTSIDE RECORDS SUMMARY | 2025-01-13 18:26 | XMS_ITS | Encounter Summary ---
Author Organization [facility] Address [address] [place] [address] 7 [place] [address] Care Team Providers Care Wood Handler Name Role Phone Ana Avila Primary Care Provider [phone] Abigail Lassiter MD Primary Care Pro vider Encounter Details Date Type Department Care Team (Latest Contact Info) Description 06/19/2021 Abstract [facility] Dental, Provider, DDS Social History Tobacco [...] Description 03/24/2025 10:45 AM EDT Office Visit [facility] [address] [place] [address] Abigail Lassiter MD [address] [place] [address] documented as of this encounter Visit Diagnoses Not on filedocumented in this encounter Care Teams Wood Handler Relationship Specialty Start Date End Date Ana Avila ANP [address] [place] [address] PCP - General Family Medicine 07/05/22 02/07/23 Abigail Lassiter MD [address] [place] [phone] PCP - General Internal Medicine 02/08/23 documented as of this encounter
[2025-01-13 19:02] VITALS: BP 141/66; PULSE 81; RESP 16; TEMP 36.7; O2SAT 96
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
[2025-01-13 21:03] VITALS: BP 124/73; PULSE 82; RESP 16; TEMP 36.6; O2SAT 97
[2025-01-13] MEDS: Ibuprofen 600 MG TABLET PO (21:03)
[2025-01-13] MEDS: methocarbamoL 750 MG TABLET PO (21:03)
== END 2025-01-13 21:15 | disposition home or self-care (01) ==
PROVIDERS: Emergency Provider Emergency Medicine
DX: Z04.1 Encounter for examination and observation following transport accident (principal); R07.89 Other chest pain; M25.512 Pain in left shoulder
CPT/HCPCS: 70450; 71045; 72125; 99284

== ENCOUNTER → 2025-01-13 17:08 | Outpatient (BNV) | payer MEDICAID, SELFPAY | PROVIDERS: Visit Provider Radiology Diagnostic Radiology | DX: R07.9 Chest pain, unspecified (principal); M54.2 Cervicalgia | CPT/HCPCS: 70450; 71045; 72125 ==

== ENCOUNTER 2025-01-21 09:26 | Outpatient (REF) | payer OTHER, MEDICAID, SELFPAY ==
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
--- OUTSIDE RECORDS SUMMARY | 2025-01-21 10:22 | XMS_ITS | Encounter Summary ---
Author Organization [employer] Address [address] [facility] 7t [place] [address] Care Team Providers Care Web Engineer Name Role Phone Abigail Lassiter MD Primary Care Pro vider Reason for Visit * Reason Onset Date Comments CHART PREP 01/19/2025 Encounter Details Date Type Department Care Team ([facility] st Contact Info) Description 01/19/2025 Telephone [facility] [address] [place], [place] [phone] Ana Avila, ANP [address] [place], [place] [phone] CHART PREP Social History Tobacco Use Types Packs/Day Years Used Date Smoking Tobacco: Never Passive Smoke Exposure: Never Smokeless Tobacco: Never Alcohol Use Standard Drinks/Week Comments Yes 0 (1 standard drink = 0.6 oz pur e alcohol) social Depression Answer Date Recorded Patient Health Questionnaire-9 Score 13 01/20/2025 Patient Health Questionnaire-9 Score 13 01/20/2025 Last PHQ-9: Questionnaire Data Not on file 0 01/20/2025 Housing Stability Answer Date Recorded What is [...] Answer Date Recorded Patient Health Questionnaire-2 Score 6 01/20/2025 Internet Access Answer Date Recorded Internet Access Q1 Yes 01/20/2025 Internet Access Q2 Not on file 01/20/2025 Comments No Sex and Gender Information Value Date Recorded Sex Assigned at Female 07/30/2022 10:14 AM EDT Legal Sex Female 10:14 AM EDT Gender Identity Choose not to disclose 10:14 AM EDT Sexual Orientation Choose not to disclose 2021 10:14 AM EDT documented as of this encounter Miscellaneous Notes * Telephone Encounter - Apolonia Vieyra [place] - 01/19/2025 11:52 AM EDT Chart Prep Labs: not applicable Images: not applicable Referrals: complete Ortho appt kept 01/15 notes on care everywhere. Vaccines due: yes RSV, Hep B, covid Screenings: foot exam Overdue care gaps: Glucose, SBIRT, SDOH, PHQ-9, SILVIO-7, Oral health screening, Disability screen, and Tobacco. Pt have an appt with PCP on 03/24/25 documented in this encounter Plan of Treatment Upcoming Encounters Date Type Department Care Team (Late st Contact Info) Description 03/24/2025 10:45 AM EDT Office Visit [facility] MED[facility] [address] [place] [address] [phone] Abigail Lassiter MD [address] [place] [address] documented as of this encounter Visit Diagnoses Not on filedocumented in this encounter Additional Health Concerns Assessment Noted Time PHQ-9 Depression Total Score: 2 03/19/20 24 9:02 AM EDT documented as of this encounter Care Teams Web Engineer Relationship Specialty Start Date End Date Abigail Lassiter MD [address] [place] [id number] PCP - General Internal Medicine 02/08/23 documented as of this encounter
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
--- OUTSIDE RECORDS SUMMARY | 2025-01-21 10:22 | XMS_ITS | Encounter Summary ---
Author Organization [employer] Address [address] [facility] [address] [place] [address] Care Team Providers Care Lamination Assembler Name Role Phone Abigail Lassiter MD Primary Care Pro vider Encounter Details Date Type Department Care Team (Late st Contact Info) Description 09/17/2024 Orders Only [facility] [address] [place] [address] Provider, MD Dianna Social History Tobacco Use [...] Description 03/24/2025 10:45 AM EDT Office Visit [facility] [address] [place] [address] [phone] Abigail Lassiter MD [address] [place] [phone] documented as of this encounter Procedures Procedure [...] documented as of this encounter Care Teams Lamination Assembler Relationship Specialty Start Date End Date Abigail Lassiter MD [address] [place] [phone] PCP - General Internal Medicine 02/08/23 documented as of this encounter
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
--- OUTSIDE RECORDS SUMMARY | 2025-01-21 10:22 | XMS_ITS | Encounter Summary ---
Author Organization [employer] Address [address] [facility] 7t [place] [address] Care Team Providers Care Cnc Manager Name Role Phone Abigail Lassiter MD Primary Care Pro vider Reason for Visit * Reason Comments Med Refill Encounter Details Date Type Department Care Team ([facility] st Contact Info) Description 07/19/2024 Refill [facility] [address] [place] [address] Abigail Lassiter MD [address] [place] [address] Pain Social History Tobacco Use Types Packs/Day [...] Description 03/24/2025 10:45 AM EDT Office Visit [facility] [address] [place] [address] Abigail Lassiter MD [address] [place] [address] documented as of this encounter Visit Diagnoses Diagnosis Pain Generalized pain documented in this encounter Additional Health Concerns Assessment Noted Time PHQ-9 Depression Total Score: 2 03/19/20 24 9:02 AM EDT documented as of this encounter Care Teams Cnc Manager Relationship Specialty Start Date End Date Abigail Lassiter MD [address] [place] [address] [phone] PCP - General Internal Medicine 02/08/23 documented as of this encounter
--- OUTSIDE RECORDS SUMMARY | 2025-01-21 10:23 | XMS_ITS | Clinical Summary ---
Author Organization [facility] Address [address] [place] [address] Phone Care Team Providers Care Detailer Name Role Phone Unavailable Primary Care Provider Unavailabl e Allergies No known active allergies Medications atorvastatin (LIPITOR) 20 mg tablet Take 1 tablet (20 mg total) by mouth 1 (one) time each day in the morning. 12/11/2024 Active acetaminophen (TYLENOL 8 HOUR) 650 mg 8 hr tablet TAKE 2 TABLETS BY MOUTH EVERY 8 HOURS NEEDED SWALLOW WHOLE WITH WATER WATER, DO NOT BREAK, CRUSH, DISSOLVE OR CHEW 07/29/2024 Active Jardiance 25 mg tablet Take 1 tablet (25 mg total) by mouth 1 (one) time each day in the morning. 02/13/2024 Active omega 1-cbu-qfy-fish oil 300 mg (120 mg- 180mg)-1,000 mg capsule Take 1 capsule by mouth 1 (one) time each day. 11/13/2024 Active omeprazole (PriLOSEC) [address] capsule Take 1 capsule (40 mg total) by mouth 1 (one) time each day. Active Januvia 100 mg tablet Take 1 tablet (100 mg total) by mouth daily. 12/07/2024 Active Active Problems Problem Noted Date Diagnosed Date Trigger ring finger of left hand 01/15/2025 Mass of palm 08/26/2024 Diverticulosis 04/24/2024 Hyperlipidemia 05/18/2023 Depression 04/16/2023 Overweight 04/16/2023 Type 2 diabetes mellitus wit h hyperlipidemia ([facility] V24, [facility] V28) 07/04/2022 Overview (01/15/2025): Foot exam wnl 09/03/22. Eye exam previously referred. A1c 8.2% today 12/20/22, above goal </= 7.0%. Increase metformin XR to 500mg BID. Holding atorvastatin b/c she's not taking (got chest tightness w/ rosuvastatin) and ASCVD risk 6.1% 06/2022 borderline. Have encouraged exercise and Mediterranean diet. She will try to remember to take metformin. Declines SGLT2i and injectable med at 12/20/22 visit. Gastroesophageal reflux disease without esophagi tis 09/20/2015 Mild persistent asthma 09/20/2015 Vitiligo 09/20/2015 Encounters Date Type Department Care Team Description 01/15/2025 11:00 AM EDT Consult Orthopedic Surgery - [address] [place] [address] Sofiya Aviles MD Trigger ring finger of left hand; Mass of palm from Last 3 Months Surgical History Surgery Date Site/Laterality Comments OVARIAN CYST REMOVAL N/A HYSTERECTOMY N/A Social History Tobacco Use Types Packs/Day Years Used Date Smoking Tobacco: Never Assessed Comments Unknown Sex and Gender Information Value Date Recorded Sex Assigned at Not on file Legal Sex Female 11:35 PM EST Gender Identity Not on file Sexual Orientation Not on file Obstetrics History Last Filed Vital Signs Vital Sign Reading Time Taken Comments Blood Pressure - - Pulse - - Temperature - - Respiratory Rate - - Oxygen Saturation - - Inhaled Oxygen Concentration - - Weight 61.2 kg (135 lb) 01/15/2025 11:23 AM EDT Height 157.5 cm (5' 2 ) 01/15/2025 11:23 AM EDT Body Mass Index 24.69 01/15/2025 11:23 AM EDT Plan of Treatment Scheduled Procedures Name Priority Associated Diagnoses Date/Ti me RELEASE TRIGGER FINGER Trigger ring finger of left hand Mass of palm Health Maintenance Due Date Last Done Comments Breast Cancer Screening 1962 Diabetes: Annual GFR (Glomerular Filtration Rate) 1962 Diabetes: Annual Foot Exam 1972 Diabetes: Annual Retina Eye Exam 1972 Zoster Vaccines (1 of 2) 2012 RSV Immunization Adult Patients (1 - Risk 60-74 years 1-dose series) 2022 Colorectal Cancer Screening: Colonoscopy 09/02/2022 Social Influencers of Health Screening 09/02/2022 COVID-19 Vaccine (2023-2 5 season) 2024 Diabetes: Annual Urine Albumin-Creatinine Ratio (uACR) 01/15/2025 Diabetes: Blood Sugar Contro l Test (HGBA1C) 02/23/2025 08/26/2024 Depression Screening 03/19/2025 03/19/2024 Influenza Vaccine (Season Ended) 2025 10/09/2013, 06/26/2012 Cervical Cancer Screening: P ap Smear 05/15/2026 05/15/2023 Cholesterol Screening (Lipid Panel) 08/26/2029 08/26/2024 DTaP,Tdap,and Td Vaccines (4 - Td or Tdap) 04/16/2033 04/16/2023, 04/17/2010, 04/24/2001 Pneumococcal Vaccine: 50+ Years Completed 04/16/2023, 08/07/2011 Pneumococcal Vaccine: Pediatrics (0 to 5 Years) and At-Risk Patients (6 to 64 Years) Completed 04/16/2023, 08/07/2011 HIV Screening Completed 04/21/2024 [...] to complete this topic RSV Immunization Patients Under 20 months Aged Out No longer eligible b ased on patient's age to complete this topic Varicella Vaccines Aged Out No longer eligible based on patient's age to complete this topic Insurance MEDICAID - [place]
--- OUTSIDE RECORDS SUMMARY | 2025-01-21 10:23 | XMS_ITS | Encounter Summary ---
Author Organization [facility] Address [address] [place] [address] 7t [place] [address] Care Team Providers Care Zyglo Technician Name Role Phone Ana Avila Primary Care Provider [phone] Abigail Lassiter MD Primary Care Pro vider Encounter Details Date Type Department Care Team (Late st Contact Info) Description 08/18/2022 Abstract [facility] [address] [place] [phone] ProviderDianna MD Social History Tobacco Use Types [...] Description 03/24/2025 10:45 AM EDT Office Visit [facility] [address] [place] [phone] Abigail Lassiter MD [address] [place] [address] [phone] documented as of this encounter Visit Diagnoses Not on filedocumented in this encounter Care Teams Zyglo Technician Relationship Specialty Start Date End Date Ana Avila ANP [address] [place] [phone] PCP - General Family Medicine 07/05/22 02/07/23 Abigail Lassiter MD [address] [place] [phone] PCP - General Internal Medicine 02/08/23 documented as of this encounter
--- OUTSIDE RECORDS SUMMARY | 2025-01-21 10:23 | XMS_ITS | Encounter Summary ---
Author Organization [employer] [facility] Address [address] [place] [address] 7 [place] [address] Care Team Providers Care Submarine Worker Name Role Phone Ana Avila Primary Care Provider [phone] Abigail Lassiter MD Primary Care Pro vider Encounter Details Date Type Department Care Team (Latest Contact Info) Description 06/19/2021 Abstract [facility] CONVERSIONS Dental, Provider, DDS Social History [...] Description 03/24/2025 10:45 AM EDT Office Visit [facility] [address] [place] [address] Abigail Lassiter MD [address] [place] [address] documented as of this encounter Visit Diagnoses Not on filedocumented in this encounter Care Teams Submarine Worker Relationship Specialty Start Date End Date Ana Avila ANP [address] [place] [address] PCP - General Family Medicine 07/05/22 02/07/23 Abigail Lassiter MD [address] [place] [phone] PCP - General Internal Medicine 02/08/23 documented as of this encounter
--- OUTSIDE RECORDS SUMMARY | 2025-01-21 10:23 | XMS_ITS | Encounter Summary ---
Author Organization [employer] [facility] Address [address] [place] [address] 7 [place] [address] Care Team Providers Care Special Education Teaching Assistant Name Role Phone Ana Avila Primary Care Provider [phone] Abigail Lassiter MD Primary Care Pro vider Encounter Details Date Type Department Care Team (Latest Contact Info) Description 01/08/2019 Abstract [facility] CONVERSIONS Dental, Provider, DDS Social History [...] Description 03/24/2025 10:45 AM EDT Office Visit [facility] [address] [place] [address] Abigail Lassiter MD [address] [place] [address] documented as of this encounter Visit Diagnoses Not on filedocumented in this encounter Care Teams Special Education Teaching Assistant Relationship Specialty Start Date End Date Ana Avila ANP [address] [place] [address] PCP - General Family Medicine 07/05/22 02/07/23 Abigail Lassiter MD [address] [place] [address] PCP - General Internal Medicine 02/08/23 documented as of this encounter
--- OUTSIDE RECORDS SUMMARY | 2025-01-21 10:23 | XMS_ITS | Encounter Summary ---
Author Organization [employer] Address [address] [facility] [address] 7t [place] [address] Care Team Providers Care School Fundraising Director Name Role Phone Abigail Lassiter MD Primary Care Pro vider Encounter Details Date Type Department Care Team (Latest Contact Info) Description 01/20/2025 Travel Social History Tobacco Use Types Packs/Day [...] Description 03/24/2025 10:45 AM EDT Office Visit [facility] [address] [place] [address] [phone] Abigail Lassiter MD [address] [place] [phone] documented as of this encounter Visit Diagnoses Not on filedocumented in this encounter Additional Health Concerns Assessment Noted Time PHQ-9 Depression Total Score: 13 025 3:37 PM EDT documented as of this encounter Care Teams School Fundraising Director Relationship Specialty Start Date End Date Abigail Lassiter MD [address] [place] [address] [phone] PCP - General Internal Medicine 02/08/23 documented as of this encounter
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
--- OUTSIDE RECORDS SUMMARY | 2025-01-21 10:23 | XMS_ITS | Encounter Summary ---
Author Organization [employer] Address [address] [place] [address] 7t [place] [address] Care Team Providers Care Field Service Coordinator Name Role Phone Ana Avila Primary Care Provider [phone] Abigail Lassiter MD Primary Care Pro vider Encounter Details Date Type Department Care Team (Late st Contact Info) Description 10/12/2022 Orders Only [facility] [address] [place], [place] [phone] Mahsa [place] LPN Social History Tobacco Use [...] Description 03/24/2025 10:45 AM EDT Office Visit [facility] [address] [place], [place] [phone] Abigail Lassiter MD [address] [place], [place] [phone] documented as of this encounter Visit Diagnoses Not on filedocumented in this encounter Care Teams Field Service Coordinator Relationship Specialty Start Date End Date Ana Avila ANP [address] [place] [address] PCP - General Family Medicine 07/05/22 02/07/23 Abigail Lassiter MD [address] [place] [address] PCP - General Internal Medicine 02/08/23 documented as of this encounter
== END 2025-01-21 09:27 | disposition home or self-care (01) ==
LOC: HO.HHCX 09:26
PROVIDERS: Visit Provider Nurse Practitioner Primary Care
DX: M25.552 Pain in left hip (principal)
CPT/HCPCS: 73502

== ENCOUNTER → 2025-01-21 09:26 | Outpatient (BNV) | payer MEDICAID, SELFPAY | PROVIDERS: Visit Provider Radiology Diagnostic Radiology | DX: M25.552 Pain in left hip (principal) | CPT/HCPCS: 73502 ==

== ENCOUNTER 2025-05-13 08:52 | Outpatient (REF) | payer MEDICAID, SELFPAY ==
--- OUTSIDE RECORDS SUMMARY | 2025-05-13 09:14 | XMS_ITS | Clinical Summary ---
Author Organization [facility] Address [address] [place] [address] Phone Care Team Providers Care Vest Baster Name Role Phone Unavailable Primary Care Provider [...] day in the morning. 02/13/2024 Active omega 0-ceu-xzv-fish oil 300 mg (120 mg- 180mg)-1,000 mg [...] Type 2 diabetes mellitus wit h hyperlipidemia ([facility] V24, [facility] V28) 07/04/2022 Overview (01/15/2025): Foot exam wnl [...] Encounters Date Type Department Care Team Description 02/25/2025 Telephone Orthopedic Surgery - [place] [phone] [facility] [address] [place] [address] Teresa De Los Santos MA Surgery from Last 3 Months Surgical History Surgery [...] 01/15/2025 11:23 AM EDT Plan of Treatment Health Maintenance Due Date [...] Vaccine (1 - 2023-2 5 season) 2024 Depression Screening 09/30/2024 Diabetes: Annual Urine Albumin-Creatinine Ratio (uACR) 01/15/2025 Diabetes: Blood Sugar Contro l Test (HGBA1C) 02/23/2025 08/26/2024 Influenza Vaccine (#1) 2025 4, 06/26/2012 Cervical Cancer Screening: P ap Smear [...]
[2025-05-13 11:41] LABS: Hematocrit 41.9 % (37.0-47.0); Hemoglobin 13.8 g/dl (12.0-16.0); Mean Corpuscular HGB Conc 32.9 g/dl (31.0-35.0); Mean Corpuscular Hemoglobin 29.9 pg (27.0-33.0); Mean Corpuscular Volume 90.7 fL (80.0-98.0); NRBC Abs Auto 0.000 X10*3/uL (0.0-0.012); NRBC Pct Auto 0.0 /100WBC (0.0-0.2); Platelet Count 249 X10*3/uL (160-400); Red Blood Count 4.62 X10*6/uL (4.20-5.50); White Blood Count 8.4 X10*3/uL (4.8-10.8)
[2025-05-13 12:00] LABS: Alanine Aminotransferase 28 U/L (0-31); Albumin Level 4.6 g/dL (3.5-5.0); Alkaline Phosphatase 107 U/L (39-117); Anion Gap 11 (12-20); Aspartate Amino Transferase 34 U/L (5-31); Blood Urea Nitrogen 14 mg/dL (9-16); Calcium 9.2 mg/dL (8.4-10.2); Carbon Dioxide 26 mmol/L (22-29); Chloride 107 mmol/L (96-108); Cholesterol 142 mg/dL (<200); Estimated Glomerular Filt Rate > 60; HDL Cholesterol 50 mg/dL (>40); Potassium 4.0 mmol/L (3.3-5.1); Sodium 140 mmol/L (135-145); Total Protein 7.6 g/dL (6.5-8.0); Triglycerides 174 mg/dL (<150)
[2025-05-13 12:06] LABS: Hemoglobin A1C 199.5691 umol/L; Total Hemoglobin (HGBA1C) 4181.1081 umol/L
[2025-05-13 12:10] LABS: Syphilis Screen Nonreactive (Nonreactive)
[2025-05-13 12:16] LABS: Microalbum/Creatinine Ratio Ur 8.9 ug/mg cr (<30)
[2025-05-13 12:42] LABS: HBS Num1 0.99 mIU/mL (0-7.99); HBc Num1 0.05 S/CO (0.00-0.79); HBsAGNum1 0.37 S/CO (0.00-0.99); HIV Num 1 0.08 S/CO (0.00-0.99); Hepatitis B Surface Antigen Negative (Negative); ~HepC Num1 0.06 S/CO (0.00-0.79); ~Hepatitis B Surface Antibody NONREACTIVE (Nonreactive); ~Hepatitis C Antibody Nonreactive (Nonreactive)
[2025-05-13 12:49] LABS: Folate 11.8 ng/mL (> or = 4.0); Vitamin B12 320 pg/mL (200-900)
== END 2025-05-13 08:53 | disposition home or self-care (01) ==
LOC: HO.HHCL 08:52
PROVIDERS: PCP Student in an Organized Health Care Education/Training Program; Visit Provider Student in an Organized Health Care Education/Training Program
DX: Z00.00 Encounter for general adult medical examination without abnormal findings (principal); Z11.4 Encounter for screening for human immunodeficiency virus [HIV]; Z11.59 Encounter for screening for other viral diseases
CPT/HCPCS: 36415; 80053; 80061; 82043; 82570; 82607; 82746; 83036; 84443; 85027; 86704; 86706; 86780; 86803; 87340; 87389

== ENCOUNTER 2025-08-20 13:27 | Outpatient (REF) | payer MEDICAID, SELFPAY ==
--- NOTE | ~2025-08-20 | MM_ITS ---
EXAMINATION: MM SCREENING DIGITAL BREAST TOMOSYNTHESIS, BILATERAL CLINICAL INFORMATION: Screening. Asymptomatic. COMPARISON: Mammography: Comparison is made with available priors TECHNIQUE: Digital breast mammography with tomosynthesis is performed in both the craniocaudal and mediolateral oblique views along with computer-aided detection (CAD). FINDINGS: There are scattered areas of fibroglandular density. Left marker clip. There are no significant masses, abnormal calcifications, or other abnormalities. MM/MM tomosynthesis screening BI IMPRESSION: No mammographic evidence of malignancy. ASSESSMENT: BI-RADS Category 2: Benign RECOMMENDATION: Routine annual mammography screening. 1 year F/U This examination should not preclude the clinical evaluation of a suspicious palpable abnormality. This patient's information was entered into a reminder system with a target due date for their next mammogram. Electronically signed by: Misti Bazzi DO 08/24/2025 09:58 AM DAVID
--- OUTSIDE RECORDS SUMMARY | 2025-08-20 13:47 | XMS_ITS | Encounter Summary ---
Author Organization [employer] Address [address] [place] [address] 7t [place] [address] Care Team Providers Care Investigative Research Specialist Name Role Phone Abigail Lassiter MD Primary Care Pro vider Reason for Visit * Reason Comments Med Refill Encounter Details Date Type Department Care Team ([facility] st Contact Info) Description 07/19/2024 Refill [facility] MEDICINE [address] [place] [address] Abigail Lassiter MD [address] [place] [address] Pain Social History Tobacco Use Types Packs/Day [...] as of this encounter Plan of Treatment Not on file documented as of this encounter Visit Diagnoses Diagnosis Pain Generalized pain documented in this encounter Additional Health Concerns Assessment Noted Time PHQ-9 Depression Total Score: 2 03/19/20 24 9:02 AM EDT documented as of this encounter Care Teams Investigative Research Specialist Relationship Specialty Start Date End Date Abigail Lassiter MD [address] [place] [phone] PCP - General Internal Medicine 02/08/23 documented as of this encounter
--- OUTSIDE RECORDS SUMMARY | 2025-08-20 13:47 | XMS_ITS | Encounter Summary ---
Author Organization [employer] Address [address] [place] [address] 7t [place] [address] Care Team Providers Care Account Executive Key Accounts Name Role Phone Ana Avila Primary Care Provider [phone] Abigail Lassiter MD Primary Care Pro vider Encounter Details Date Type Department Care Team (Late st Contact Info) Description 10/12/2022 Orders Only [facility] [address] [place], [place] [phone] Mahsa [place] LPN Social History Tobacco Use [...] on filedocumented in this encounter Care Teams Account Executive Key Accounts Relationship Specialty Start Date End Date Ana Avila ANP [address] [place], [place] [phone] PCP - General Family Medicine 07/05/22 02/07/23 Abigail Lassiter MD [address] [place], [place] [phone] PCP - General Internal Medicine 02/08/23 documented as of this encounter
--- OUTSIDE RECORDS SUMMARY | 2025-08-20 13:47 | XMS_ITS | Encounter Summary ---
Author Organization [employer] Address [address] [place] [address] 7t [place] [address] Care Team Providers Care Process Worker Name Role Phone Ana Avila Primary Care Provider [phone] Abigail Lassiter MD Primary Care Pro vider Encounter Details Date Type Department Care Team (Latest Contact Info) Description 06/19/2021 Abstract [facility] CONVERSIONS Dental, Provider, DDS Social History Tobacco [...] on filedocumented in this encounter Care Teams Process Worker Relationship Specialty Start Date End Date Ana Avila ANP [address] [place] [address] PCP - General Family Medicine 07/05/22 02/07/23 Abigail Lassiter MD [address] [place], [place] [phone] PCP - General Internal Medicine 02/08/23 documented as of this encounter
--- OUTSIDE RECORDS SUMMARY | 2025-08-20 13:47 | XMS_ITS | Clinical Summary ---
Author Organization [employer] Address [address] [facility] 7[address] [place] [address] Care Team Providers Care Float Builder Name Role Phone Abigail Lassiter MD Primary Care Pro vider Allergies No known active allergies Medications * This document contains information received from the source organization and may not represent a complete record from that organization. TRUEplus Lancets 33G misc TEST BLOOD SUGAR DAILY DIRECTED 02/02/20 23 Active Blood Glucose Monitoring Suppl (ReVision OpticsStyle [place] Lite) w/Device kit Use to test blood sugar bid dx dm 1 kit 08/16/20 23 Active FREESTYLE LITE test strip TEST BLOOD SUGAR DAILY DIRECTED 50 strip 1 09/06/20 23 Active albuterol (Ventolin HFA) 108 (90 Base) MCG/ACT inhalerIndicatio ns:Mild intermittent asthma without complication Inhale 2 puffs every 4 (four) hours if needed for wheezing. 18 g 5 05/25/20 25 Active acetaminophen (Tylenol 8 Hour) 650 MG ER tabletIndication s:Pain Take 1 tablet (650 mg) by mouth every 8 (eight) hours if needed for mild pain. TAKE 2 TABLETS BY MOUTH EVERY 8 HOURS NEEDED SWALLOW WHOLE WITH WATER DO NOT BREAK, CRUSH, DISSOLVE OR CHEW 60 tablet 2 05/25/20 25 026 Active omega-3 (Fish Oil) 1000 MG capsule Take 1 capsule (1,000 mg) by mouth Once per day. 90 capsule 1 05/25/20 25 Active atorvastatin (Lipitor) 20 MG tablet Take 1 tablet (20 mg) by mouth in the morning. 90 tablet 1 05/25/20 25 Active Melatonin 3 MG capsule Take 3 mg by mouth at bedtime. 30 capsule 2 05/25/20 Active psyllium (Metamucil Smooth Texture) 58.6 % powder Take 5.12 g (3 g of fiber) by mouth 2 times daily. 283 g 2 05/25/20 25 026 Active docusate sodium (Colace) 100 MG capsule Take 1 capsule (100 mg) by mouth if needed in the morning and at bedtime for constipation. Take 1 tab po bid prn constipation 60 capsule 2 05/25/20 Active linaGLIPtin (Tradjenta) 5 MG tablet Take 1 tablet (5 mg) by mouth Once per day. 90 tablet 07/23/20 25 026 Active SITagliptin (Januvia) 100 MG tablet Take 1 tablet (100 mg) by mouth Once per day. 90 tablet 1 05/25/20 025 Discontin ued(Other ) Active Problems Problem Noted Date Diagnosed Date Insomnia 05/25/2025 Left hip pain 03/24/2025 Moderate depressive disorder 03/24/2025 Assessment & Plan (03/24/2025 4:12 PM EDT): During IBH Consult Cesia presenting with depressed mood, Tearful, hopelessness, change in appetite or weight reduce appetite, changes in sleep difficulty falling asleep and difficulty staying asleep , fatigue/loss of energy, difficulty concentrating, indecisiveness; for a period of 6-12 mo, for most or all symptoms in the context of divorce/separation, family issues, and financial concern. Cesia stated feeling depressed due to having different personal stressors (son is currently incarcerated and her romantic relationship ended after 22 years of being together). Pt experiences loneliness and has difficulty sharing her emotions with others due to having lack on interpersonal relationships. Pt lives alone and feels safe at home. She reports having positive family support. Pt declined OP referral and agreed in contacting clinician for follow-up during next medical appointment. Trigger ring finger of left hand 01/15/2025 Mass of left hand 08/26/2024 Diverticulosis 04/24/2024 Family history of breast cancer 03/19/2024 Constipation 10/22/2023 Hyperlipidemia 05/18/2023 Assessment & Plan (05/18/2023 2:21 PM EDT): 03/2023: -total ch 256,trig 266,HDL 51,LDL 152, alk phos mild elevated at 126 ACVD: 8.7% (high statin recommendation). -Lifestyle changes advised. Increase Lipitor to 20 mg daily. -Repeat fasting lipids and chem in 3 mo. [facility] maintenance 04/16/2023 Assessment & Plan (05/18/2023 2:19 PM EDT): -menopause: 52 y of age -pap smear - repeated Pap smear 05/15/2023 w Liset Clarke Results pending. -MM 2019 : BIRADS [...] pt s/p partial hysterectomy? --referred today to J . R -MM 2019 : BIRADS 2, , had [...] testing including HIV to have for baseline Depression 04/16/2023 Assessment & Plan (05/18/2023 2:18 PM EDT): Mild depression,states to be associated that her son is in half-way PHQ9: 4 ,denies SI -refuse BH referral -states followed in the past and was not helpful x her -advised to improve activity ,yoga,meditation -px melatonin prn x insomnia that reports to be sporadic -will continue to monitor Assessment & Plan (04/16/2023 2:14 PM EDT): Mild depression,states to be associated that her son is in half-way PHQ9: 4 ,denies SI -refuse BH referral today-states followed in the past and was not helpful x her -advised to improve activity ,yoga,meditation -px melatonin prn x insomnia that reports to be sporadic -will continue to monitor Type 2 diabetes mellitus with hyperlipidemia 01/2022 Overview (12/20/2022): Foot exam wnl 09/03/22. Eye [...] -opthalmo last 01/2023 - next apt 06/17/2023. 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 Assessment & Plan (04/16/2023 2:11 [...] Cbgs -opthalmo last 01/2023 -Referred today to rehab physician Gastroesophageal reflux disease without esophagi tis 09/20/2015 [...] worsening vitiligo -pt would like to see mica machine operator-referred already. Apt for 05/2023 Assessment & Plan (04/16/2023 2:04 PM EDT): Reports worsening vitiligo -pt would like to see mica machine operator-referred today Resolved Problems Problem Noted Date Diagnosed Date Resolved Date Acute pain of right shoulder 03/19/2024 04/24/2024 Empty sella turcica 05/18/2023 10/22/19 24 Overview [...] Encounters Date Type Department Care Team Description 08/16/2025 Refill [facility] [address] [place] [phone] Abigail Lassiter MD 07/23/2025 Orders Only [facility] [address] [place] [phone] Abigail Lassiter MD 07/22/2025 Telephone [facility] [address] [place] [address] Abigail Lassiter MD Prior Authorization 05/25/2025 9:00 AM EDT Office Visit [facility] [address] [place] [phone] Abigail Lassiter MD Type 2 diabetes mellitus with hyperlipidemia (CMS/HCC) (CMS/HCC) (Primary Dx); Mild intermittent asthma without complication; Pain; Health care maintenance; Depression, unspecified depression type; Left hip pain; Other insomnia 05/25/2025 Travel 05/23/2025 Refill [facility] [address] [place] [address] Neisha Abel MD from Last 3 Months Immunizations Immunization Administration Dates Next Due Influenza, Split (incl. [...] Answer Date Recorded Patient Health Questionnaire-9 Score 12 03/24/2025 Patient Health Questionnaire-9 Score 12 03/24/2025 Last PHQ-9: Questionnaire Data Not on file 0 03/24/2025 Housing Stability Answer Date Recorded What is [...] Answer Date Recorded Patient Health Questionnaire-2 Score 4 03/24/2025 Internet Access Answer Date Recorded Internet Access [...] Sign Reading Time Taken Comments Blood Pressure 124/84 05/25/2025 9:06 AM EDT Pulse 78 05/25/2025 9:06 AM EDT Temperature 36.6 C (97.8 F) 05/25/2025 9:06 AM EDT Respiratory Rate 16 05/25/2025 9:06 AM EDT Oxygen Saturation 99% 03/24/2025 10:41 AM EDT Inhaled Oxygen Concentration - - Weight 61.7 kg (136 lb) 05/25/2025 9:06 AM EDT Height 157.5 cm (5' 2 ) 05/25/2025 9:06 AM EDT Body Mass Index 24.87 05/25/2025 9:06 AM EDT Plan of Treatment Health Maintenance Due Date Last Done Comments CT Colonography 1962 FIT DNA/Cologuard 1962 FIT 1962 FOBT 1962 Sigmoidoscopy 1962 Diabetes: Foot Exam 1972 RSV Patients and Patients Aged 60 years or older (1 - Risk 50-74 years 1-dose series) 2012 Zoster Vaccines (1 of 2) 2012 COVID-19 Vaccine (1 - season) 2025 Influenza Vaccine (#1) 2025 10/09/2013, 2011 Mammogram 07/29/2025 07/29/2024, 07/01, 07/18/2022, Additional history exists Depression Monitoring 09/23/2025 03/24/2025, 025 Diabetes: Hemoglobin A1C 11/13/2025 025, 08/26/2024, 08/25/2024, Additional history exists Alcohol/Substance Use Screening 01/20/2026 01/20/2025 SDOH Screening 01/20/2026 01/20/2025 Disability Screening 03/24/2026 03/24/2025 Diabetes: Urine Protein Screening 05/13/2026 05/13/2025, 08/26/2024, 08/26/2024, Additional history exists Lipid Panel 05/13/2026 05/13/2025, 08/01, 04/21/2024, Additional history exists Cervical Cancer Screening 05/15/2026 HPV/Cotest 05/15/2026 05/15/2023 Pap Smear 05/15/2026 05/15/2023 Tobacco Screening 05/25/2026 05/25/2025 Eye Exam 05/07/2027 05/07/2025, 12/29, 01/08/2025, Additional history exists Colonoscopy 04/13/2029 04/13/2024, 04/13/2024 Colorectal Cancer Screening 04/13/2029 DTaP/Tdap/Td Vaccines (3 - Td or Tdap) 04/16/2033 04/16/2023, 04/17/2010, 04/24/2001 Pneumococcal Vaccine: 50+ Years Completed 04/16/2023, 08/07/2011 HIV Screening Completed 05/13/2025, 04/21/2024 Hepatitis C Screening Completed 05/13/2025, 024 HIB Vaccines Aged Out No longer eligi [...] Procedure Name Priority Date/Time Associated Diagnosis Comments HEPATITIS C AB W/REFL TO HCV RNA, QN, PCR Routine 05/13/2025 9:06 AM EDT Annual physical exam HIV 1/2 ANTIGEN/ANTIBODY, FOURTH GENERATION W/RFL Routine 05/13/2025 9:06 AM EDT Annual physical exam ALBUMIN, RANDOM URINE W/CREATININE Routine 05/13/2025 9:06 AM EDT Annual physical exam HEMOGLOBIN A1C Routine 05/13/2025 9:06 AM EDT Annual physical exam LIPID PANEL, STANDARD Routine 05/13/2025 9:06 AM EDT Annual physical exam BI MAMMOGRAM SCREENING TOMOSYNTHESIS BILATERAL Routine 07/29/2024 3:00 PM EDT HM COLONOSCOPY Routine 04/13/2024 8:39 AM EDT HPV MRNA E6/E7 REFLEX TO HPV 16, 18/45 Routine 05/15/2023 12:00 AM EDT PAP SMEAR Routine 05/15/2023 from Last 3 Months or Most Recently Relevant to Health Maintenance Results * Albumin, Random Urine W/Creatinine (05/13/2025 9:06 AM EDT) Creatinine, Urine 157.25 mg/dL [facility] Microalbumin Urine 14.0 mg/L [facility] Microalbum Creatinine Ratio Ur 8.9 <30 ug/mg cr [facility] Comment:Albumin/Creatinine R atio Reference Ranges: Normal: < 30 ug/mg creatinine Microalbuminuria: 30 - 300 ug/mg creatinineClinical Albuminuria: > 300 ug/mg creatinine Urine (Urine, Random) 05/13/2025 9:06 AM EDT 05/13/2025 11:23 AM EDT us Abigail Muñoz MD LAB URINE ORDERAB LES Final Result [facility] [address] [place] [phone] * Hepatitis C Antibody with Reflex to HCV, RNA, Quantitative, Real-Time PCR (05/13/2025 9:06 AM EDT) Hepatitis C Antibody Nonreactive Nonreactive [facility] Comment:Antibodies to HCV no t detected; does not exclude early acuteHCV infection. Blood Venous blood specimen / Unknown 05/13/2025 9:06 AM EDT 05/13/2025 11:20 AM EDT Abigail Muñoz MD LAB BLOOD ORDERAB LES Final Result Performing Organization Address [facility] de Phone Number [facility] [address] [place] [phone] * HIV-1/2 Antigen and Antibodies, Fourth Generation, with Reflexes (05/13/2025 9:06 AM EDT) HIV AB/AG Nonreactive Nonreactive [facility] Comment:HIV-1 p24 Ag and/or HIV-1/HIV-2 Ab not detected.A test result that is nonreactive does not exclude thepossibility of exposure to or infection with HIV-1 and/orHIV-2. Nonreactive results in this assay for individualswith prior exposure to HIV-1 and/or HIV-2 may be due toantigen and antibody levels that are below the limit ofdetection of this assay.The [employer] HIV Ag/Ab Combo assay result andsupplemental assay results should be interpreted inconjunction with the patient's clinical presentation,history and other laboratory results. If the results areinconsistent with clinical evidence, additional testing issuggested to confirm the result. Blood Venous blood specimen / Unknown 05/13/2025 9:06 AM EDT 05/13/2025 11:20 AM EDT Abigail Muñoz MD LAB BLOOD ORDERAB LES Final Result Performing Organization Address [facility] Co de Phone Number [facility] [address] [place] [phone] * (ABNORMAL) Hemoglobin A1c (05/13/2025 9:06 AM EDT) Hemoglobin A1c 6.5(H) <6.0 % [facility] Comment:Hemoglobin A1C Refer ence Range Adults: 4.8 - 6.0 % Non diabetic: < 6.0 % Goal: < 7.0 %Additional Action Suggested: > 8.0 %Note: Hemoglobin A1c results are invalid for patients with abnormal amounts of HbF. Blood transfusions may impact the HbA1c concentration in the patient sample. Estimated Average Glucose 140 mg/dL [facility] Comment:eAG = Estimated ave rage glucose which is %A1C expressed asaverage glucose, using the formula of the E6L-DcdtomxDzgioug Glucose study (ADAG), Diabetes Care, Vol.31,#8,Apr. 2007 Blood Venous blood specimen / Unknown 05/13/2025 9:06 AM EDT 05/13/2025 11:20 AM EDT us Abigail Muñoz MD LAB BLOOD ORDERAB LES Final Result Performing Organization Address [facility] Co de Phone Number [facility] [address] [place] [phone] * (ABNORMAL) Lipid Panel, Standard (05/13/2025 9:06 AM EDT) Triglycerides 174(H) <150 mg/dL [facility] Comment:Desirable Triglyceri de: less than 150 mg/dLBorderline High Triglyceride 150-199 mg/dLHigh Triglyceride: 200-499 mg/dLVery High Triglyceride: greater than or equal to 5OO mg/dL Cholesterol 142 <200 mg/dL [facility] Comment:Desirable Cholestero l: less than 200 mg/dLBorderline High Cholesterol: 200-239 mg/dLHigh Cholesterol: greater than 239 mg/dL LDL Cholesterol Calculated 58 <100 mg/dL [facility] Comment:Desirable LDL: less than 100 mg/dLNear Optimal/Above Optimal LDL: 110- 129 mg/dLBorderline High LDL: 130-159 mg/dLHigh LDL: 160-189 mg/dLVery High LDL: greater than or equal to 190 mg/dL HDL Cholesterol 50 >40 mg/dL [facility] Comment:Desirable HDL: great er than 40 mg/dL Note: This HDL assay may give artificially low results in patients with liver disease. Blood Venous blood specimen / Unknown 05/13/2025 9:06 AM EDT 05/13/2025 11:20 AM EDT us Abigail Muñoz MD LAB BLOOD ORDERAB LES Final Result [facility] [address] [place] [phone] * BI Mammogram Screening Tomosynthesis Bilateral (07/29/2024 3:00 PM EDT) Anatomical Region Laterality Modality Breast Bilateral Mammography 07/29/2024 3:00 PM EDT Narrative 08/07/2024 10:04 AM EST [address] [place] [address] Mammography Report Signed Patient: Cesia Underwood MR#: [id number] 0 : 1960 Acct:[id number] Age/Sex: 64 / F ADM Date: 07/29/24 Loc: HO.MAMMO Attending Dr: Abigail Muñoz MD Ordering Physician: Abigail Lassiter MD Re sults: 2Benign Findings Date of Service: 07/29/24 Follow Up: 1 Year From Orig ina Mammogram Procedure(s): MM tomosynthesis screening BI Accession Number(s): [id number] cc: Abigail Lassiter MD EXAMINATION: MM SCREENING [...] 08/07/24 1001 DD/ 1500 TD/TT: 07/29/24 1510 Email Administrator: Procedure Note Donotuseinterpreter, Image - 08/07/2024 [facility] [address] [place] [address] Mammography Report Signed Patient: Jamila Underwood#: [id number] 0 : 2Acct:[id number] Age/Sex: 64 / FADM Date: 07/29/24 Loc: HO.MAMMO Attending Dr: Abigail Muñoz MD Ordering Physician: Abigail Lassiter sults: 2Benign Findings Date of Service: 07/29/24Follow Up: 1 Year From Orig inal Mammogram Procedure(s): MM tomosynthesis screening BI Accession Number(s): [id number] cc: Abigail Lassiter MD EXAMINATION: MM SCREENING [...] 08/07/24 1001 DD/ 1500 TD/TT: 07/29/24 1510 Email Administrator: Abigail Muñoz MD IMG BI PROCEDURES Final Result * Hm Colonoscopy (04/13/2024 8:39 AM EDT) Historical Provider HEALTH MAINTENANCE Final Result * HPV mRNA E6/E7 w/Reflex to HPV Genotypes 16, 18/45 (05/15/2023 12:00 AM EDT) HPV nRNA E6/E7 Not Detected Not Detected [facility] Comment:Methodology: Transcr iption-Mediated AmplificationThis assay detects E6/E7 viral messenger RNA (mRNA) from 14high-risk HPV types (16,18,31,33,35,39,45,51,52,56,58,59,66,68).Cervical sources are required for HPV testing.If a vaginal source from a patient who has had atotal hysterectomy with removal of cervix wassubmitted, please contact the testing laboratoryfor alternative testing options.For additional information, please refer tohttp://education.Countercepts/faq/WDY642u8(This link if provided for information/educational purposes only.)THIS TEST WAS PERFORMED AT:[employer] [place] [phone] MCCABE MD HPV mRNA E6/E7 [facility] HPV 16 RNA [facility] HPV 18/45 RNA [facility] 05/15/2023 05/17/2023 9:0 0 AM EDT Liset Salazar CNM LAB CYTOLOGY ORDERABLES F inal Result [facility] [address] [place] [phone] * Pap Smear (05/15/2023) 05/15/2023 05/17/2023 9:0 0 AM EDT Narrative [facility] - 06/05/2023 2:31 PM EDT ----- ------- Name: Cesia Underwood Age/Sex: 63/F : 1960 Unit#: [id number] Attend Dr: LISET SALAZAR CNM Re05/16/23 Status: DEP REF Location: HO.HHCLNP Disch: ----- ------- SPEC : [id number] RECD: 05/17/23 STATUS: RHINA DIALLO NUM: [id number] YVES: 05/15/23- SUBM DR: LISET SALAZAR CNM ENTERED: 05/17/23 SP TYPE: Pap Smr OTHR DR: ORDERED: Pap Smear, PAP path review Interpretation General Category: Epithelial cell abnormality. Adequacy: No endocervical cells identified. Interpretation: Atypical squamous cells of undetermined significance. HPV mRNA E6/E7: Not Detected This assay detects E6/E7 viral messenger RNA (mRNA) from 14 high-risk HPV types (16, 18, 31, 33, 35, 39, 45, 51, 52, 56, 58, 59, 66, 68) HPV testing performed by [facility], [place], [place]. See reference laboratory portion of the EMR for entire report. Clinical Information LMP: S/P Hysterectomy Previous PAP test:Unknown date/findings Material Received ThinPrep-Vaginal/Cervical ----- ------- Signed (signature on file) Sim Tao MD 06/05/23 1431 ----- ------- END OF REPORT us Liset COLLINS LAB CYTOLOGY ORDERABLES F inal Result [facility] [address] [place] [phone] from Last 3 Months or Most Recently Relevant to Health Maintenance [facility] [employer] C[employer] Care Teams Float Builder Relationship Specialty Start Date End Date Abigail Lassiter MD [address] [place] [address] PCP - General Internal Medicine 02/08/23
--- OUTSIDE RECORDS SUMMARY | 2025-08-20 13:47 | XMS_ITS | Encounter Summary ---
Author Organization [employer] Address [address] [place] [address] 7 [place] [address] Care Team Providers Care Mixer Dry Food Products Name Role Phone Ana Avila Primary Care Provider Abigail Lassietr MD Primary Care Pro vider Encounter Details Date Type Department Care Team (Latest Contact Info) Description 01/08/2019 Abstract [facility] CONVERSIONS Dental, Provider, DDS Social [...] on filedocumented in this encounter Care Teams Mixer Dry Food Products Relationship Specialty Start Date End Date Ana Avila ANP [address] [place] [address] PCP - General Family Medicine 07/05/22 02/07/23 Abigail Lassiter MD [address] [place], [place] [phone] PCP - General Internal Medicine 02/08/23 documented as of this encounter
--- OUTSIDE RECORDS SUMMARY | 2025-08-20 13:47 | XMS_ITS | Encounter Summary ---
Author Organization [employer] Address [address] [place] [address] Care Team Providers Care Rock Picker Name Role Phone Abigail Lassiter MD Primary Care Pro vider Encounter Details Date Type Department Care Team ([facility] st Contact Info) Description 09/17/2024 Orders Only [facility] [address] [place] [address] ProviderDianna MD Social History Tobacco Use Types [...] the past 12 months, has t he [employer] gas, oil or water company threatened to [...] on file documented as of this encounter Procedures Procedure [...] documented as of this encounter Care Teams Rock Picker Relationship Specialty Start Date End Date Abigail Lassiter MD [address] [place] [phone] PCP - General Internal Medicine 02/08/23 documented as of this encounter
--- OUTSIDE RECORDS SUMMARY | 2025-08-20 13:47 | XMS_ITS | Encounter Summary ---
Author Organization [employer] Address [address] [place] [address] [address]t [place] [address] Care Team Providers Care Slurry Tank Operator Name Role Phone Abigail Lassiter MD Primary Care Pro vider Reason for Visit * Reason Comments Med Refill Encounter Details Date Type Department Care Team ([facility] st Contact Info) Description 08/16/2025 Refill [facility] [address] [place] [address] Abigail Lassiter MD [address] [place] [address] Social History Tobacco Use Types Packs/Day Years [...] Assessment Noted Time PHQ-9 Depression Total Score: 12 025 11:35 AM EDT documented as of this encounter Care Teams Slurry Tank Operator Relationship Specialty Start Date End Date Abigail Lassiter MD [address] [place] [phone] PCP - General Internal Medicine 02/08/23 documented as of this encounter
--- OUTSIDE RECORDS SUMMARY | 2025-08-20 13:47 | XMS_ITS | Clinical Summary ---
Author Organization [facility] Address [address] [place] [address] Phone Care Team Providers Care Tufter Operator Name Role Phone Unavailable Primary Care Provider [...] day in the morning. 02/13/2024 Active omega 4-iib-owc-fish oil 300 mg (120 mg- 180mg)-1,000 mg [...] Type 2 diabetes mellitus wit h hyperlipidemia ([facility] V24, CMS/[facility] V28) 07/04/2022 Overview (01/15/2025): Foot exam [...] 09/20/2015 Mild persistent asthma 09/20/2015 Vitiligo 09/20/2015 Surgical History Surgery Date Site/Laterality Comments OVARIAN [...] Last Done Comments Breast Cancer Screening 1962 Colorectal Cancer Screening: Colonoscopy 1962 Diabetes: Annual GFR (Glomerular Filtration Rate) 1962 Diabetes: Annual Foot Exam 1972 Diabetes: Annual Retina Eye Exam 1972 RSV Immunization Adult Patients (1 - Risk 50-74 years 1-dose series) 2012 Zoster Vaccines (1 of 2) 2012 Social Influencers of Health Screening 09/02/2022 Depression Screening 09/30/2024 Diabetes: Annual Urine Albumin-Creatinine Ratio (uACR) 01/15/2025 Diabetes: Blood Sugar Contro l Test (HGBA1C) 02/23/2025 08/26/2024 COVID-19 Vaccine ( - 2024-2 6 season) 2025 Influenza Vaccine (#1) 2025 4, 06/26/2012 Cervical [...]
--- OUTSIDE RECORDS SUMMARY | 2025-08-20 13:47 | XMS_ITS | Encounter Summary ---
Author Organization [employer] Address [address] [place] [address] 7t [place] [address] Care Team Providers Care Visual Training Aide Name Role Phone Ana vAila Primary Care Provider [phone] Abigail Lassiter MD Primary Care Pro vider Encounter Details Date Type Department Care Team (Late st Contact Info) Description 08/18/2022 Abstract [facility] [address] [place], [place] [phone] ProviderDianna MD Social History Tobacco Use Types [...] on filedocumented in this encounter Care Teams Visual Training Aide Relationship Specialty Start Date End Date Ana Avila ANP [address] [place], [place] [phone] PCP - General Family Medicine 07/05/22 02/07/23 Abigail Lassiter MD [address] [place], [place] [phone] PCP - General Internal Medicine 02/08/23 documented as of this encounter
== END 2025-08-20 13:28 | disposition home or self-care (01) ==
LOC: HO.MAMMO 13:27
PROVIDERS: PCP Student in an Organized Health Care Education/Training Program; Visit Provider Student in an Organized Health Care Education/Training Program
DX: Z12.31 Encounter for screening mammogram for malignant neoplasm of breast (principal)
CPT/HCPCS: 77063; 77067

== ENCOUNTER → 2025-08-20 14:15 | Outpatient (BNV) | payer MEDICAID, SELFPAY | PROVIDERS: PCP Student in an Organized Health Care Education/Training Program; Visit Provider Internal Medicine | DX: Z12.31 Encounter for screening mammogram for malignant neoplasm of breast (principal) | CPT/HCPCS: 77063; 77067 ==